=== PATIENT | female | born 1940 | race Caucasian/White ===

== ENCOUNTER → 2017-08-21 | Outpatient (CLI) | payer OTHER ==
[~2017-08-21] MED LIST: ASA81 MG; BYSTOLIC20 MG PO; COUMADIN5 M1 PO; GABAPENTIN300 MG PO; LASIX20 MG PO; LOSARTAN POTAS100 MG PO; NORTRIPTYLINE H25 MG PO; Z.0.BYSTOLIC10 MG; Z.0.LASIX40 MG; Z.0.PRAVACHOL40 MG; Z.1.VERAPAMIL ER240
[2017-08-21 11:51] LABS: INR 1.96
== END ==
LOC: LAB 11:14
PROVIDERS: ATTEND Internal Medicine
DX: Z79.01 Long term (current) use of anticoagulants (principal)
CPT/HCPCS: 36415; 85610

== ENCOUNTER 2017-09-16 14:10 | Observation (INO) | payer MEDICARE ==
[~2017-09-16] VITALS: Ht 170.2 cm; Wt 81.2 kg
[2017-09-16 14:53] LABS: BASOPHILS # (AUTO) 0.1 (0.0-0.1); BASOPHILS % 0.3 % (0.0-1.0); HEMATOCRIT 42.1 % (34.2-44.1); HEMOGLOBIN 13.9 g/dL (12.0-16.0); LYMPHOCYTES # (AUTO) 1.1 (1.0-3.2); LYMPHOCYTES % 5.7 % (18.0-39.1); MEAN CORPUSCULAR HEMOGLOBIN 27.6 pg (28-32); MEAN CORPUSCULAR VOLUME 83.7 fL (81-99); MONOCYTES # (AUTO) 1.4 (0.2-0.8); MONOCYTES % 6.7 % (4.4-11.3); NEUTROPHILS # (AUTO) 17.2 (2.1-6.9); NEUTROPHILS % 85.5 % (38.7-80.0); PLATELET COUNT 192 x10e3/uL (140-360); RED BLOOD COUNT 5.03 x10e6/uL (3.6-5.1); RED CELL DISTRIBUTION WIDTH 15.3 % (11.7-14.4)
[2017-09-16 15:00] LABS: PARTIAL THROMBOPLASTIN TIME 61.5 seconds (23.8-35.5)
[2017-09-16 15:01] LABS: INR 11.19; PROTHROMBIN TIME 81.8 seconds (11.9-14.5)
[2017-09-16 16:15] LABS: ALBUMIN/GLOBULIN RATIO 1.3 (0.8-2.0); ANION GAP 16.2 mmol/L (8-16); CALCIUM 10.1 mg/dL (8.4-10.2); CREATININE, SERUM 1.28 mg/dL (0.57-1.11); POTASSIUM 4.2 mmol/L (3.5-5.1)
[2017-09-16] MEDS ORDERED: PHYTONADIONE 1 MG/0.5 ML AMP IM ONE (16:15)
[2017-09-16] MEDS ORDERED: PHYTONADIONE 10 MG/ML AMP IM SCH (16:45)
[2017-09-16] MEDS ORDERED: ONDANSETRON HCL INJ 2 MG/ML VIAL IV PRN (18:15)
[2017-09-16] MEDS ORDERED: CEFTRIAXONE SOD 1 GM VIAL IM ONE (18:15)
[2017-09-16 18:21] LABS: BILIRUBIN,URINE NEGATIVE (NEGATIVE); CLARITY,URINE CLEAR (CLEAR); COLOR,URINE YELLOW (YELLOW); KETONES,URINE NEGATIVE (NEGATIVE); LEUKOCYTE ESTERASE ,URINE NEGATIVE (NEGATIVE); NITRITE,URINE NEGATIVE (NEGATIVE); PROTEIN,URINE DIPSTICK NEGATIVE (NEGATIVE); URINE UROBILINOGEN 0.2 mg/dL (0.2 - 1)
[2017-09-16 18:35] LABS: EPITHELIAL CELLS,URINE FEW /LPF
[2017-09-16] MEDS ORDERED: CEFTRIAXONE SOD 1 GM VIAL IV ONE (19:55)
--- NOTE | 2017-09-16 19:58 | History and Physical ---
VP ANCILLARY: Dr. Holman. CHIEF COMPLAINT: Elevated INR. HISTORY OF PRESENT ILLNESS: This is a 76-year-old woman with a history of atrial fibrillation on Coumadin whose INR last month was in the 2 range. The patient was sent to the hospital by her primary care physician due to INR being 13. Now, it is in the 11 range. She is ordered for fresh frozen plasma and admitted for further evaluation and management. The patient admits to some dark stool. Denies any radhika bleeding. Denies any history of GI bleeding. The patient denies any recent new medication. Denies any antibiotic use. PAST MEDICAL HISTORY: Pneumonia, atrial fibrillation, hypertension, sepsis, coronary artery disease, status post coronary artery bypass grafting, breast cancer, status post double mastectomy. Hyperlipidemia. Lasix dependence. Status post atrial fibrillation ablation. PAST SURGICAL HISTORY: Coronary artery bypass grafting, hysterectomy, bilateral mastectomy, breast reconstruction, status post removal due to infection, bladder suspension in 1991, left knee meniscus repair. ALLERGIES: PER ELECTRONIC MEDICAL RECORDS. FAMILY AND SOCIAL HISTORY: The patient is . She has 3 children. No alcohol, illicits or cigarettes. MEDICATIONS: Per electronic medical records. REVIEW OF SYSTEMS: Denies any dizziness, chest pain, shortness of breath, fever or chills or sweats, no nausea, vomiting or diarrhea. PHYSICAL EXAMINATION VITAL SIGNS: Reviewed. GENERAL APPEARANCE: A tired-appearing woman resting in the bed. HEENT: Anicteric. Pupils responsive to light. No oral lesions. CARDIOVASCULAR: Normal S1 and S2. LUNGS: Moderate breath sounds, ABDOMEN: Soft and nontender. Nondistended. EXTREMITIES: There is no edema or calf tenderness. NEUROLOGIC: Alert and oriented x3. Moving all extremities. SKIN: Dry. PSYCHIATRIC: Normal affect. LABS: Reviewed. MEDICATIONS: Reviewed. ASSESSMENT : This is a 76-year-old woman. 1. Supratherapeutic INR of 11.19. 2. Coumadin toxicity. 3. Acute kidney injury. 4. Marked leukocytosis. 5. Atrial fibrillation. 6. Coronary artery disease with history of bypass. 7. Hypertension. 8. Hyperlipidemia. 9. Overweight state. BMI 29.4. 10. Hyperglycemia of 285. PLAN: 1. Reverse INR with fresh frozen plasma. 2. Give some vitamin K. 3. Rehydrate the patient. 4. Oral ANDRESSA inhibitor and Lasix. 5. Obtain hemoglobin A1c and lipid panel. 6. Hold Lasix. 7. Use Pepcid. 8. Follow up INR after fresh frozen plasma. 9. Consult cardiology. Job#: [id number] ALIE
[2017-09-16 20:25] VITALS: BP_SYST 160; BP_SYST 166; BP_DIAS 70; BP_DIAS 72
[2017-09-16 21:00] VITALS: BP 144/72
[2017-09-16] MEDS ORDERED: GABAPENTIN 300 MG CAP PO SCH (21:00)
[2017-09-16] MEDS: SODIUM CHLORIDE 0.9% 1000ML 1,000 ML IV SCH (21:55)
[2017-09-16] MEDS ORDERED: PREDNISONE 20 MG TAB PO STA (22:59)
[2017-09-17] VITALS (8 sets, daily range): BP systolic 135–187; BP diastolic 61–81
[2017-09-17] MEDS: SODIUM CHLORIDE 0.9% 1000ML 1,000 ML IV SCH ×2 (04:10→14:30)
[2017-09-17 05:40] LABS: BASOPHILS % 0.2 % (0.0-1.0); EOSINOPHILS # (AUTO) 0.1 (0.0-0.4); EOSINOPHILS % 0.5 % (0.0-6.0); HEMATOCRIT 36.4 % (34.2-44.1); HEMOGLOBIN 11.5 g/dL (12.0-16.0); LYMPHOCYTES # (AUTO) 1.8 (1.0-3.2); LYMPHOCYTES % 11.9 % (18.0-39.1); MEAN CORPUSCULAR HEMOGLOBIN 27.1 pg (28-32); MEAN CORPUSCULAR HGB CONC 31.6 g/dL (31-35); MEAN CORPUSCULAR VOLUME 85.8 fL (81-99); MONOCYTES # (AUTO) 1.3 (0.2-0.8); MONOCYTES % 8.7 % (4.4-11.3); NEUTROPHILS # (AUTO) 11.7 (2.1-6.9); NEUTROPHILS % 76.9 % (38.7-80.0); PLATELET COUNT 164 x10e3/uL (140-360); RED BLOOD COUNT 4.24 x10e6/uL (3.6-5.1); RED CELL DISTRIBUTION WIDTH 15.2 % (11.7-14.4)
[2017-09-17 05:54] LABS: INR 2.19; PROTHROMBIN TIME 22.9 seconds (11.9-14.5)
[2017-09-17 06:03] LABS: ALBUMIN 3.4 g/dL (3.5-5.0); ALBUMIN/GLOBULIN RATIO 1.1 (0.8-2.0); ANION GAP 11.6 mmol/L (8-16); CALCIUM 9.3 mg/dL (8.4-10.2); CREATININE, SERUM 0.99 mg/dL (0.57-1.11); POTASSIUM 4.6 mmol/L (3.5-5.1)
[2017-09-17] MEDS ORDERED: PREDNISONE20 MG PO (06:18)
[2017-09-17 08:53] LABS: CHOL/HDL RATIO 3.4 (3.0-3.6)
[2017-09-17] MEDS ORDERED: FUROSEMIDE 40 MG TAB PO SCH (09:00)
[2017-09-17] MEDS: FAMOTIDINE 20 MG TAB PO SCH ×2 (09:00→17:42)
[2017-09-17] MEDS ORDERED: NEBIVOLOL 10 MG TAB PO SCH (09:00)
[2017-09-17] MEDS ORDERED: KLOR-CON 1010 MEQ PO (09:12)
[2017-09-17] MEDS ORDERED: OMEGA-31000 MG PO (09:12)
[2017-09-17] MEDS ORDERED: PRAMIPEXOLE DIHY1 MG PO (09:12)
[2017-09-17] MEDS ORDERED: CLONIDINE HCL0.1 MG PO (09:12)
[2017-09-17] MEDS ORDERED: B COMPLEX1 EACH PO (09:12)
[2017-09-17] MEDS ORDERED: MULTIVITAMINS1 EAC7 PO (09:12)
[2017-09-17] MEDS ORDERED: HYDRALAZINE HCL25 MG PO (09:12)
[2017-09-17] MEDS ORDERED: NORCO 10-325 T1 EACH PO (09:29)
[2017-09-17] MEDS ORDERED: CLONIDINE HCL 0.1 MG TAB PO SCH (09:30)
[2017-09-17] MEDS: HYDRALAZINE HCL 25 MG TAB PO SCH ×3 (09:57→21:20)
--- NOTE | 2017-09-17 11:05 | Consultation ---
DATE OF CONSULTATION: September 17, 2017 Ms. Kay is a 76-year-old white female referred to me for evaluation of coagulopathy. I had a call from Dr. Gamble that there was a patient who had an INR of 14 and could vitamin K be given at my office. Subsequently, I suggested the patient be sent to the ER as any INR more than 6 could cause spontaneous bleed especially in the brain. Subsequently, the patient was seen in the ER of [facility]. Fresh frozen plasma and vitamin K was given at my instructions to the emergency room physician. Subsequently, consultation was placed for me to see her today. HISTORY OF PAST ILLNESSES: History of atrial fibrillation, history of hypertension, history of coronary artery disease, history of coronary artery bypass, history of bilateral mastectomy for breast cancer. She had reconstruction. However, this got infected. This was taken out. I do not know the medical oncologist who has followed her. History of hyperlipidemia. The patient claims that she has a sore throat for the last 2 days. SURGICAL HISTORY: Coronary artery bypass, bilateral mastectomy, reconstruction and then later removal of the infected implants, history of bladder suspension, history of left knee meniscus repair, history of hysterectomy. SOCIAL HISTORY: Noncontributory. FAMILY HISTORY: Noncontributory. ALLERGIES: REPORTED NONE. MEDICATIONS: At this time: 1. Prednisone 20 mg p.o. t.i.d. 2. Mirapex 1 mg p.o. b.i.d. 3. Ondansetron. 4. [place]. 3. 5. Bystolic. 6. Hydralazine. 7. Lasix. 8. Gabapentin. 9. Pepcid. 10. Clonidine. 11. Ceftriaxone. REVIEW OF SYSTEMS HEENT: Normal except for pharyngitis at this time. CARDIAC: History of coronary artery bypass. History of atrial fibrillation. GI: Normal. : Surgery before. MUSCULOSKELETAL: Normal. SKIN AND BREASTS: Bilateral mastectomy. NEUROENDOCRINE: The patient is hyperglycemic at this time. PHYSICAL EXAMINATION GENERAL: Moderately built female. No palpable adenopathy. HEART: Within normal limits except varying intensity of the 1st heart sound and irregularity. LUNGS: Clear. HEENT: Throat shows pharyngitis. BREASTS: Bilateral mastectomy scars. RECTAL: Vaginal examination deferred. MANAGER ORDER: Essentially normal. EXTREMITIES: Essentially normal. LABS: Shows a hemoglobin of 13.9, hematocrit 42.1, white count of 20,000, and platelets are reported at 192,000. Chemistry shows a sodium of 137, potassium 4.2, chloride 96, CO2 29, BUN 49, creatinine 1.2, glucose high at 285. Calcium 10.1. Bilirubin 1.4, SGOT 21, SGPT 47, alkaline phosphatase 66, total protein 7.2. Albumin 4. Globulin 3.2. Triglycerides high at 300. Coagulation profile reveals the patient's INR to be 11.1. The INR has come down to 2.19 today. Urinalysis is reported essentially normal except for 6-10 rbcs. Chest x-ray is not available at this time for review. IMPRESSION 1. Acquired coagulopathy. 2. Atrial fibrillation. 3. Hypertension. 4. Coronary artery bypass graft. 5. History of breast cancer. 6. Hyperlipidemia. 7. Leukocytosis. 8. Pharyngitis. 9. Hyperglycemia. PLAN, COMMENTS AND SUGGESTIONS: Suggest resuming the Coumadin at a dose of 4 mg a day. Monitor the INR closely. I will be more than happy to get involved in monitoring the INR. It is very essential that the patient should have Coumadin only and not warfarin. I suggest to monitor the INR once a week for 4 weeks, and once stable enough to monitor it once a month. I am at a loss as to why she is on such a high dose of prednisone. However, I will leave it up to the attending. The leukocytosis made even be because of prednisone. Thank you very much for allowing me to participate in the management of this patient. Job#: [id number] RI cc:MD KAMINI WALTON MD
[2017-09-17] MEDS: AMOXICILLIN 250 MG CAP PO SCH ×3 (13:38→21:19)
[2017-09-17] MEDS: NIFEDIPINE CR 30 MG TAB PO SCH ×2 (14:02→21:20)
[2017-09-17] MEDS: CLONIDINE HCL 0.1 MG TAB PO SCH ×2 (14:02→21:20)
--- NOTE | 2017-09-17 14:56 | Progress Note ---
DATE: September 17, 2017 TIME: 2:28 p.m. OVERNIGHT: Feeling better. REVIEW OF SYSTEMS: Denies any dizziness. PHYSICAL EXAMINATION VITAL SIGNS: Reviewed. GENERAL: A tired-appearing woman resting in bed. HEENT: Anicteric. CARDIOVASCULAR: Normal S1 and S2. LUNGS: Moderate breath sounds. ABDOMEN: Soft, nontender and nondistended. EXTREMITIES: No edema or calf tenderness. NEUROLOGICAL: Alert and oriented times 3. Moving all extremities. SKIN: Dry. PSYCHIATRIC: Normal affect. LABS: Reviewed. MEDICATIONS: Reviewed. ASSESSMENT: A 76-year-old woman with: 1. Supratherapeutic INR of 11. 2. Coumadin toxicity. 3. Acute kidney injury. 4. Marked leukocytosis. 5. Atrial fibrillation. 6. Coronary artery disease with a history of bypass. 7. Hypertension. 8. Hyperlipidemia. 9. Overweight state: Body mass index 29.4. 10. Hyperglycemia. 11. Hypertriglyceridemia. PLAN 1. She is status post fresh frozen plasma and vitamin K. INR has been in the 2 range. 2. She will be followed by hematology outpatient, Dr. De La Rosa. 3. Renal function improving. Continue IV fluids and reduced to 75 mL. 4. Blood pressure elevated. Will adjust medications. 5. Will start fenofibrate for hypertriglyceridemia. 6. Discharge planning. Job#: [id number] KANDY
[2017-09-17] MEDS ORDERED: PREDNISONE 20 MG TAB PO SCH (15:00)
[2017-09-17] MEDS: PRAMIPEXOLE DIHYDROCHLORIDE 1 MG TAB PO SCH (17:42)
[2017-09-17] MEDS ORDERED: CHLORASEPTIC SPRAY 177 ML BTL MM PRN (17:45)
[2017-09-17] MEDS ORDERED: NORTRIPTYLINE HCL 25 MG CAP PO SCH (21:00)
[2017-09-17] MEDS: PREDNISONE 5 MG TAB PO SCH (21:19)
[2017-09-18] VITALS: BP_SYST 161; BP_DIAS 70; BP_DIAS 71
[2017-09-18 02:44] VITALS: BP 161/70
[2017-09-18] MEDS: SODIUM CHLORIDE 0.9% 1000ML 1,000 ML IV SCH (03:41)
[2017-09-18 04:00] VITALS: BP 146/67
[2017-09-18 05:30] LABS: BASOPHILS % 0.3 % (0.0-1.0); EOSINOPHILS % 0.2 % (0.0-6.0); HEMATOCRIT 34.2 % (34.2-44.1); HEMOGLOBIN 10.9 g/dL (12.0-16.0); LYMPHOCYTES # (AUTO) 1.4 (1.0-3.2); LYMPHOCYTES % 10.4 % (18.0-39.1); MEAN CORPUSCULAR HEMOGLOBIN 27.7 pg (28-32); MEAN CORPUSCULAR HGB CONC 31.9 g/dL (31-35); MEAN CORPUSCULAR VOLUME 86.8 fL (81-99); MONOCYTES % 7.9 % (4.4-11.3); NEUTROPHILS # (AUTO) 10.3 (2.1-6.9); NEUTROPHILS % 78.6 % (38.7-80.0); PLATELET COUNT 128 x10e3/uL (140-360); RED BLOOD COUNT 3.94 x10e6/uL (3.6-5.1); RED CELL DISTRIBUTION WIDTH 15.1 % (11.7-14.4)
[2017-09-18 05:54] LABS: BLOOD UREA NITROGEN 24 mg/dL (7-26); BUN/CREATININE RATIO 30 (6-25); CALCIUM 8.7 mg/dL (8.4-10.2); CARBON DIOXIDE 24 mmol/L (22-29); CHLORIDE 105 mmol/L (98-107); CREATININE, SERUM 0.81 mg/dL (0.57-1.11); EST GLOMERULAR FILTRATION RATE > 60 ML/MIN (60-); GLUCOSE 341 mg/dL (74-118); SODIUM 138 mmol/L (136-145)
[2017-09-18] MEDS: CLONIDINE HCL 0.1 MG TAB PO SCH (06:24)
[2017-09-18 06:55] LABS: LYMPHOCYTES % (MANUAL) 6 % (19-48); METAMYELOCYTES % (MANUAL) 1 % (0-0); MONOCYTES % (MANUAL) 5 % (3.4-9.0); MYELOCYTES % (MANUAL) 1 % (0-0); NEUTROPHILS % (MANUAL) 86 % (40-74)
[2017-09-18 06:57] LABS: RBC MORPHOLOGY COMMENT NORMAL
[2017-09-18 06:58] LABS: ANISOCYTOSIS SLIGHT; HYPOCHROMASIA SLIGHT; PLATELET ESTIMATE SLIGHTLY DECREASED; PLATELET MORPHOLOGY COMMENT NORMAL
[2017-09-18] MEDS ORDERED: PANTOPRAZOLE SOD 40 MG TABEC PO SCH (07:30)
[2017-09-18] MEDS: FAMOTIDINE 20 MG TAB PO SCH (07:45)
[2017-09-18 08:00] LABS: INR 1.54; PROTHROMBIN TIME 17.4 seconds (11.9-14.5)
--- NOTE | 2017-09-18 08:20 | Discharge Summary ---
PRINCIPAL DIAGNOSES 1. Supratherapeutic INR. 2. Coumadin toxicity. 3. Acute kidney injury. 4. Marked leukocytosis. 5. Atrial fibrillation. 6. Coronary artery disease with history of bypass. 7. Hypertension. 8. Hyperlipidemia. 9. Overweight state. Body mass index 29.4. 10. Hypertriglyceridemia. 11. Hyperglycemia. SECONDARY DIAGNOSIS: Hypertension. CHIEF COMPLAINT: Abnormal labs. HISTORY OF PRESENT ILLNESS: A 76-year-old woman with abnormal labs. Refer to the H and P for further details. HOSPITAL COURSE: The patient was found to have supratherapeutic INR of 11. Received FFP and vitamin K. INR improved to the 2 range. Repeat INR testing now today is pending. The patient is feeling better. She had acute kidney injury. Received IV fluids with improvement in function. She is doing better and currently appropriate for discharge and follow up. DISCHARGE MEDICATIONS: Per electronic medical record. FOLLOWUP: Primary care doctor in 1 week. Follow up with Dr. De La Rosa next week for INR. Continue monitoring. I have adjusted her blood pressure medicines. KAMINI HERNADEZ MD Job#: [id number] [place]
[2017-09-18] MEDS ORDERED: MULTIVITAMINS/MINERALS TAB PO SCH (09:00)
[2017-09-18] MEDS ORDERED: OMEGA 3 POLYUNSAT FATTY ACIDS 1000 MG SOFTGEL PO SCH (09:00)
[2017-09-18] MEDS ORDERED: DEXTROSE 50% SYRINGE 50 ML IV PRN (09:30)
[2017-09-18 09:48] LABS: CHOL/HDL RATIO 3.1 (3.0-3.6)
[2017-09-18] MEDS: PREDNISONE 5 MG TAB PO SCH (10:05)
[2017-09-18] MEDS: PRAMIPEXOLE DIHYDROCHLORIDE 1 MG TAB PO SCH (10:05)
[2017-09-18] MEDS: HYDRALAZINE HCL 25 MG TAB PO SCH (10:07)
[2017-09-18] MEDS: NIFEDIPINE CR 30 MG TAB PO SCH (10:07)
[2017-09-18] MEDS: AMOXICILLIN 250 MG CAP PO SCH ×2 (10:07→13:00)
[2017-09-18] MEDS ORDERED: METFORMIN HCL 500 MG TAB CR PO ONE (10:15)
[2017-09-18] MEDS ORDERED: INSULIN REGULAR, HUMAN 100 UNIT/1 ML 3ML VIAL SQ SCH (11:30)
[2017-09-18] MEDS ORDERED: WARFARIN SODIUM5 MG PO (11:55)
[2017-09-18 12:00] VITALS: BP 141/66
[2017-09-18 12:21] VITALS: BP 137/63
[2017-09-18] MEDS ORDERED: WARFARIN SOD 5 MG TAB PO SCH (17:00)
[2017-09-18] MEDS ORDERED: METFORMIN HCL 500 MG TAB CR PO SCH (17:00)
== END 2017-09-18 12:58 | disposition home or self-care (01) ==
LOC: ER 14:10 → ERHOLD 18:14 → MED/SURG 20:25
PROVIDERS: ADMIT Internal Medicine; ATTEND Internal Medicine
DX: D72.829 Elevated white blood cell count, unspecified (principal); T45.515A Adverse effect of anticoagulants, initial encounter; N17.9 Acute kidney failure, unspecified; I48.91 Unspecified atrial fibrillation; Z79.01 Long term (current) use of anticoagulants; I25.10 Atherosclerotic heart disease of native coronary artery without angina pectoris; Z95.1 Presence of aortocoronary bypass graft; I10 Essential (primary) hypertension; E78.5 Hyperlipidemia, unspecified; E66.3 Overweight; Z68.29 Body mass index [BMI] 29.0-29.9, adult; R73.9 Hyperglycemia, unspecified; Z85.3 Personal history of malignant neoplasm of breast; E78.1 Pure hyperglyceridemia; J02.9 Acute pharyngitis, unspecified
CPT/HCPCS: 36415 ×3; 36430 ×2; 80048; 80053 ×2; 80061 ×2; 81001; 82948; 83036 ×2; 85025 ×3; 85610 ×3; 85730; 86850; 86900; 87040; 87070; 87086; 99284; G0378 ×3; J0696; J3430; J7030 ×3; J7512 ×2; P9017; S0164

== ENCOUNTER 2018-02-05 09:42 | Inpatient (IN) | payer MEDICARE ==
[2018-02-05] VITALS (21 sets, daily range): BP systolic 104–184; BP diastolic 44–93
[~2018-02-05] VITALS: Ht 167.6 cm; Wt 76.0 kg
[~2018-02-05 09:42] MED LIST changes: +B COMPLEX1 EACH PO; +CLONIDINE HCL0.1 MG PO; +HYDRALAZINE HCL25 MG PO; +KLOR-CON 1010 MEQ PO; +MULTIVITAMINS1 EAC7 PO; +NORCO 10-325 T1 EACH PO; +OMEGA-31000 MG PO; +PRAMIPEXOLE DIHY1 MG PO; +PREDNISONE20 MG PO; +WARFARIN SODIUM5 MG PO
--- OUTSIDE RECORDS SUMMARY | 2018-02-05 09:44 | XMS REPORT | Clinical Summary ---
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 Active warfarin (COUMADIN) 5 MG Take 5 mg by 0 tablet mouth daily. Take 1 tablet (5mg) by mouth daily for 30 days. Active metoprolol succinate XL Take 50 mg by 0 (TOPROL-XL) 50 mg 24 hr mouth daily. tablet Active losartan (COZAAR) 100 MG Take 100 mg 0 tablet by mouth daily. Active clonIDINE (CATAPRES) 0.1 Take 0.1 mg 0 MG tablet by mouth 2 (two) times a day. Active OXcarbazepine (TRILEPTAL) Take 150 mg 0 150 MG tablet by mouth every morning. Takes 1 tab morning Active OXcarbazepine (TRILEPTAL) Take 150 mg 0 150 MG tablet by mouth nightly. Takes 2 tabs at bedtime Active Problems Problem Noted Date S/P CABG x 2 08/28/2016 Essential hypertension 08/28/2016 Post-op pain 08/28/2016 Respiratory insufficiency 08/28/2016 Paroxysmal atrial fibrillation 08/28/2016 Coronary artery disease of [place] artery of [place] heart with stable angina 08/27/2016 pectoris Family History Medical History Relation Name Comments Heart disease Father Heart disease Mother Cancer Sister Relation Name Status Comments Father Mother Sister Social History Date Tobacco Use Types Packs/Day Years Used Former Smoker Cigarettes Comments: Quit in 1994 Alcohol Use Drinks/Week oz/Week Comments No Sex Assigned at Date Recorded Not on file Industry Job Start Date Occupation Not on file Not on file Not on file Travel End Travel History Travel Start No recent travel history available. Last Filed Vital Signs Not on file Plan of Treatment Health Maintenance Due Date Last Done Comments SHINGRIX VACCINE (1 of 2) 1988 ZOSTER VACCINE 1998 PNEUMOCOCCAL 10/15/2003 POLYSACCHARIDE VACCINE AGE 65 AND OVER PNEUMOCOCCAL-13 10/15/2003 INFLUENZA VACCINE 10/08/2017 Implants Device Identifier Shelf Expiration Date Model / Serial / Lot Implanted Type Area Manufactur er 06/05/2018 6500F / / [id number] Lead Pace Reji Mycrdl Unipol Tmpry Cardiovasc N/A: N/A [employer] Streamline - [id number] [facility] - Implanted: Qty: 1 on 08/28/2016 by Implants CARDIAC Torsten Nino MD SRGRY 06/05/2018 [id number] / / [id number] Lead Pace Reji Mycrdl Unipol Tmpry Cardiovasc N/A: N/A [employer] Streamline - [id number] [facility] - Implanted: Qty: 1 on 08/28/2016 by Implants CARDIAC Torsten Nino MD SRGRY [id number] / / Catheter Thor [place] 36fr 20in Str Surgical N/A: N/A COVIDIEN Pvc - [id number] Implants; LAINE Implanted: 08/28/2016 (Quantity not Expanders; HEALTHCARE on file) Extenders; Surgical Wires [id number] / / Patch Biosurg Selnt Fibrin Absrbl Surgical N/A: N/A BAILEY 9.5x4.8cm Tachosil - [id number] Implants; BIOSCIENCE Implanted: 08/28/2016 (Quantity not Expanders; on file) Extenders; Surgical Wires 03/06/2021 [id number] / / [id number] [place] Perph Vasclr Ptfe 1.2x10cm Vascular N/A: N/A BARD 1.65mm - [id number] Graft PERIPHERAL Implanted: Qty: 1 on 08/28/2016 by VASCULAR Torsten Nino MD Results Not on fileafter 02/04/2017 Insurance Payer Benefit Subscriber ID Type Phone Address Plan / Group AETNA MEDICARE AETNA xxxxxxxx HMO MEDICARE HMO/PPO [facility] Advance Directives Patient has advance care planning documents on file. For more information, radha bates contact: Zion Jiménez [address] [place] [address]
[2018-02-05] MEDS ORDERED: PIPER-TAZ 3.375 GM 50 ML IV STA (09:59)
[2018-02-05] MEDS ORDERED: SODIUM CHLORIDE 0.9% 1000ML 1,000 ML IV STA (09:59)
[2018-02-05] MEDS ORDERED: VANCOMYCIN 1GM/NS 250 ML 250 ML IV STA (09:59)
[2018-02-05 10:17] LABS: BASOPHILS # (AUTO) 0.1 (0.0-0.1); BASOPHILS % 0.3 % (0.0-1.0); HEMATOCRIT 32.2 % (34.2-44.1); LYMPHOCYTES # (AUTO) 0.7 (1.0-3.2); LYMPHOCYTES % 4.5 % (18.0-39.1); MEAN CORPUSCULAR HEMOGLOBIN 26.1 pg (28-32); MEAN CORPUSCULAR HGB CONC 31.1 g/dL (31-35); MEAN CORPUSCULAR VOLUME 84.1 fL (81-99); MONOCYTES # (AUTO) 1.5 (0.2-0.8); MONOCYTES % 10.2 % (4.4-11.3); NEUTROPHILS # (AUTO) 12.2 (2.1-6.9); NEUTROPHILS % 84.4 % (38.7-80.0); PLATELET COUNT 165 x10e3/uL (140-360); RED BLOOD COUNT 3.83 x10e6/uL (3.6-5.1); RED CELL DISTRIBUTION WIDTH 14.6 % (11.7-14.4)
[2018-02-05 10:41] LABS: ALBUMIN 3.3 g/dL (3.5-5.0); ALBUMIN/GLOBULIN RATIO 0.8 (0.8-2.0); ANION GAP 14.2 mmol/L (8-16); CALCIUM 10.2 mg/dL (8.4-10.2); CREATININE, SERUM 1.53 mg/dL (0.57-1.11); POTASSIUM 4.2 mmol/L (3.5-5.1)
[2018-02-05 10:51] LABS: CREATINE KINASE MB 1.6 ng/mL (0-5.0)
[2018-02-05] MEDS ORDERED: AZITHROMYCIN 500MG/SOD CHL 0.9% 250ML BAG IV SCH (11:45)
[2018-02-05] MEDS ORDERED: VANCOMYCIN HCL 1GM/NS 250 ML BAG IV SCH (11:45)
--- NOTE | 2018-02-05 11:59 | Diagnostic Imaging Report ---
PROCEDURE: A single AP view of the chest. COMPARISON: CT Chest 12/10/2016 and chest radiograph 11/14/16. INDICATIONS: CHEST PAIN, CONFUSION FINDINGS: Lines/tubes: Left sided pacemaker with leads terminating at the expected position of the right atrium and right ventricle. Lungs: The lungs are well inflated. Moderate interstitial and perihilar opacities. Patchy opacities at the lung bases. Pleura: Small bilateral pleural effusions. No evidence of pneumothorax. Heart and mediastinum: Mild enlargement of the cardiomediastinal silhouette. Bones: No acute bony abnormality. IMPRESSION: Cardiomegaly with moderate interstitial edema and small bilateral pleural effusions. Patchy opacities at the lung bases likely atelectasis, although superimposed pneumonia is possible in the appropriate clinical setting. Dictated by: DOM TEJADA M.D. on 02/05/2018 at 12:08 Electronically approved by: DOM TEJADA M.D. on 02/05/2018 at 12:08
--- OUTSIDE RECORDS SUMMARY | 2018-02-05 12:03 | XMS REPORT | Clinical Summary ---
Author Author [facility] [employer] [facility] Address Unknown Phone Unavailable Care Team Providers Care Adhesive Bonding Machine Operator Name Role Phone Hawa Gamble MD PCP [...] atrial fibrillation 08/28/2016 Coronary artery disease of [place] artery of [place] heart with stable angina 08/27/2016 pectoris Family [...] Area Manufactur er 06/05/2018 6500F / / [id number] Lead Pace Reji Mycrdl Unipol Tmpry Cardiovasc N/A: N/A [employer] Streamline - [id number] [facility] - Implanted: Qty: 1 on 08/28/2016 by Implants CARDIAC Torsten Nino MD SRGRY 06/05/2018 [id number] / / [id number] Lead Pace Reji Mycrdl Unipol Tmpry Cardiovasc N/A: N/A [employer] Streamline - [id number] [facility] - Implanted: Qty: 1 on 08/28/2016 by Implants CARDIAC Torsten Nino MD SRGRY [id number] / / Catheter Thor [place] 36fr 20in Str Surgical N/A: N/A COVIDIEN Pvc - [id number] Implants; LAINE Implanted: 08/28/2016 (Quantity not Expanders; HEALTHCARE on file) Extenders; Surgical Wires [id number] / / Patch Biosurg Selnt Fibrin Absrbl Surgical N/A: N/A BAILEY 9.5x4.8cm Tachosil - [id number] Implants; BIOSCIENCE Implanted: 08/28/2016 (Quantity not Expanders; on file) Extenders; Surgical Wires 03/06/2021 [id number] / / [id number] [place] Perph Vasclr Ptfe 1.2x10cm Vascular N/A: N/A BARD 1.65mm - [id number] Graft PERIPHERAL Implanted: Qty: 1 on 08/28/2016 by VASCULAR Torsten Nino MD Results Not on fileafter 02/04/2017 Insurance Payer Benefit Subscriber ID Type Phone Address Plan / Group AETNA MEDICARE AETNA xxxxxxxx HMO MEDICARE HMO/PPO [facility] Advance Directives Patient has advance care planning documents on file. For more information, radha bates contact: Zion Jiménez [address] [place] [address]
[2018-02-05 12:17] LABS: INR 1.34; PROTHROMBIN TIME 17.7 seconds (11.9-14.5)
[2018-02-05] MEDS: VANCOMYCIN 1GM/NS 250 ML 250 ML IV SCH (12:21)
[2018-02-05 12:28] LABS: BILIRUBIN,URINE NEGATIVE (NEGATIVE); CLARITY,URINE SL CLOUDY (CLEAR); COLOR,URINE YELLOW (YELLOW); KETONES,URINE NEGATIVE (NEGATIVE); LEUKOCYTE ESTERASE ,URINE 1+ (NEGATIVE); NITRITE,URINE NEGATIVE (NEGATIVE); PROTEIN,URINE DIPSTICK 1+ (NEGATIVE); URINE UROBILINOGEN 0.2 mg/dL (0.2 - 1)
[2018-02-05 12:38] LABS: BACTERIA,URINE MANY /HPF; EPITHELIAL CELLS,URINE FEW /LPF
[2018-02-05] MEDS ORDERED: FUROSEMIDE INJ 10 MG/ML 4 ML VIAL IV NR (13:15)
[2018-02-05] MEDS: LEVOFLOXACIN 750MG/D5W 150ML 150 ML IV SCH (14:59)
[2018-02-05] MEDS: AZITHROMYCIN 500MG/NS 250 ML 250 ML IV SCH (14:59)
--- NOTE | 2018-02-05 15:07 | Consultation ---
DATE OF CONSULTATION: February 05, 2018 CARDIAC CONSULTATION REASON FOR THE CONSULTATION: Acutely ill with possible near septic shock, coronary artery disease, congestive heart failure. HISTORY: Ms. Kay is a 77-year-old lady who is known with chronic atrial fibrillation, status post AV node ablation, pacemaker placement. Her other problems including coronary artery disease, status post coronary artery bypass surgery in August 2016 for left main coronary artery disease. She is hypertensive. Patient was in her usual status of health. Unfortunately more than 6 months ago she started having very severe lower extremity pain. She had workup. She was diagnosed with severe peripheral neuropathy. She was started on steroids. She had complications. She can barely move, and she needs long rehabilitation. She is in chronic pain. She does have other problem, is chronic severe shortness of breath. She was seen and evaluated by Dr. Freire. She had workup, and she did not improve much from that front but what is bothering her the most is her severe lower extremity pain, her limited activity, and patient is very ill. Patient for the last 2 days as per having fever, chills, very weak. She cannot do anything. Today she was shocky. She was very ill. He needed to call 9--1. She came in the ambulance to the hospital. She was shocky. She was rescued with IV fluid, she had blood cultures, and she was given antibiotics. Cardiac consultation is obtained. I visited with the patient. She is more awake. She was before that having altered mental status. She is complaining of severe pain of the lower extremities. She denied having any shortness of breath, although initially we were thinking she was having severe shortness of breath. She denied having any anginal chest pain. Her main problem is her pain in her lower extremities and fever, chills, failure to thrive and weakness. Her BNP came back positive at 518; her troponin at 0.42, upper normal at this institution is 0.3. HOME MEDICATIONS 1. Clonidine 0.1 mg twice a day. 2. Losartan 100 mg a day. 3. Lasix 40 mg a day. 4. Potassium chloride 20 mEq a day. 5. Hydralazine 50 mg 3 times a day. 6. Mexiletine 150 mg a day. 7. Metformin 500 mg 3 times a day. 8. Pramipexole dihydrochloride 1 mg twice a day. 9. Baclofen 10 mg t.i.d. ALLERGIES: NORVASC, CAUSING LEG SWELLING. TOPROL-XL, CAUSING WEAKNESS. MOTRIN, CAUSING RASH. PAST MEDICAL HISTORY 1. Coronary artery bypass surgery on August 28, 2016, for 2 bypasses, GONZÁLES to LAD and saphenous venous graft to the OM. 2. Pacemaker placement. 3. Atrial fibrillation. 4. AV kala ablation in April 2003. 5. Severe pneumonia in 2013. 6. Severe peripheral neuropathy treated with steroids with severe sequela. Patient barely can walk now. 7. Breast reconstruction surgery after bilateral mastectomy with removal of the implant because of infection. 8. Oophorectomy with bladder suspension in 1992. 9. Hysterectomy. 10. Back surgery. SOCIAL HISTORY: She is . 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 She is nonsmoker, nonalcohol drinker. FAMILY HISTORY: Mother of myocardial infarction at the age 46, and she had also breast cancer. Father at the age 86. He had bypass and carotid endarterectomy. Five siblings and three children. One sister of breast cancer and another sister diagnosed with breast cancer. REVIEW OF SYSTEMS GENERAL: Weakness. Failure to thrive. Poor exercise tolerance. HEENT: No vision problem. No hearing problem. PULMONARY: Easy fatigability. Shortness of breath on exertion, class III. CARDIAC: No angina, no syncope, no presyncope. GI: Poor appetite. Weakness. No hematemesis, no melena. HEMATOLOGY: No easy bruising or bleeding, but patient had recent admission where she had Coumadin toxicity. : Increased frequency of urination. MUSCULOSKELETAL: Back pain. NEUROLOGICAL: Very severe excruciating lower extremity pain, very weak and restless legs. PHYSICAL EXAMINATION VITAL SIGNS: Height of 5 feet 7 inches, weight of 175 pounds, blood pressure 140/80, heart rate 70, respiratory rate of 18. GENERAL: Patient acutely ill. HEENT: Pupils are reactive. NECK: No elevation of jugular venous pulsation. CHEST: Decreased lung expansion. Pacemaker is noted in place. HEART: PMI 5th left intercostal space. Normal 1st and 2nd heart sounds. Soft murmur. ABDOMEN: Soft with no organomegaly, no abdominal rebound. Bowel sounds are present. EXTREMITIES: Chronic changes, very painful to touch. NEUROLOGIC: Very severe weakness of the lower extremities. LAB DATA: White blood cell count of 14.4, hemoglobin of 10, hematocrit 32%, platelet count of 165,000. Sodium of 132, potassium of 4.2, BUN of 31, creatinine of 1.53. Troponin of 0.420. BNP of 518. INR still pending. IMPRESSION AND PLAN 1. Failure to thrive with febrile illness. Sepsis is very high on the list. Patient already given IV fluid, and she is covered with antibiotics. 2. Status post bypass surgery. 3. Chronic lung disease. 4. Severe peripheral neuropathy with severe pain and lower extremity weakness. 5. Hypertension. 6. Atrial fibrillation and pacemaker implantation. 7. Debility and chronic pain. 8. Pacemaker. Cardiac-cruz, recommendation will be to aggressively treat the patient, checking her INR, repeating lab, checking an echo, checking her pacemaker, repeating serial cardiac enzymes. Prognosis is guarded at this timepoint, but will follow this very ill patient with you and would like to thank you for your kind referral. Job#: [id number] LAISHA
[2018-02-05 16:18] LABS: ABG HCO3 21 mmol/L (23-28); ABG PCO2 31 mmHg (41-51); ABG PH 7.45 (7.31-7.41); ABG PO2 56 mmHg (80-105)
[2018-02-05] MEDS: METOPROLOL TARTRATE 25 MG TAB PO SCH (17:00)
[2018-02-05] MEDS ORDERED: POTASSIUM CHLO20 ME1 PO (18:13)
[2018-02-05] MEDS ORDERED: METFORMIN HCL500 MG PO (18:13)
[2018-02-05] MEDS ORDERED: METOLAZONE5 MG PO (18:13)
[2018-02-05] MEDS ORDERED: BACLOFEN10 MG PO (18:13)
[2018-02-05] MEDS ORDERED: MEXILETINE HCL150 MG PO (18:13)
[2018-02-05] MEDS ORDERED: FUROSEMIDE40 MG PO (18:13)
[2018-02-05] MEDS ORDERED: DICLOFENAC TOP (18:13)
[2018-02-05] MEDS ORDERED: HYDROCODONE/APAP 10MG-325MG TAB PO ONE (19:15)
[2018-02-05] MEDS: HYDROCODONE/APAP 10MG-325MG TAB PO PRN (20:30)
[2018-02-05] MEDS ORDERED: CRESTOR 10MG PO SCH (21:00)
[2018-02-06] VITALS (16 sets, daily range): BP systolic 11–155; BP diastolic 49–80
[2018-02-06] MEDS: HYDROCODONE/APAP 10MG-325MG TAB PO PRN (01:34)
[2018-02-06 01:36] LABS: CLARITY,URINE SL CLOUDY (CLEAR); COLOR,URINE YELLOW (YELLOW); LEUKOCYTE ESTERASE ,URINE 1+ (NEGATIVE)
[2018-02-06 01:37] LABS: BACTERIA,URINE FEW /HPF; BILIRUBIN,URINE NEGATIVE (NEGATIVE); EPITHELIAL CELLS,URINE FEW /LPF; KETONES,URINE NEGATIVE (NEGATIVE); NITRITE,URINE NEGATIVE (NEGATIVE); PROTEIN,URINE DIPSTICK 1+ (NEGATIVE); URINE UROBILINOGEN 0.2 mg/dL (0.2 - 1); WBC,URINE (MAN) 21-50 /HPF (0-5)
[2018-02-06 05:04] LABS: BASOPHILS % 0.4 % (0.0-1.0); EOSINOPHILS % 0.1 % (0.0-6.0); HEMATOCRIT 28.7 % (34.2-44.1); HEMOGLOBIN 9.2 g/dL (12.0-16.0); LYMPHOCYTES # (AUTO) 1.4 (1.0-3.2); LYMPHOCYTES % 14.2 % (18.0-39.1); MEAN CORPUSCULAR HGB CONC 32.1 g/dL (31-35); MEAN CORPUSCULAR VOLUME 84.2 fL (81-99); MONOCYTES # (AUTO) 1.3 (0.2-0.8); MONOCYTES % 13.5 % (4.4-11.3); NEUTROPHILS % 71.3 % (38.7-80.0); PLATELET COUNT 150 x10e3/uL (140-360); RED BLOOD COUNT 3.41 x10e6/uL (3.6-5.1); RED CELL DISTRIBUTION WIDTH 14.3 % (11.7-14.4)
[2018-02-06 05:31] LABS: ALBUMIN 2.7 g/dL (3.5-5.0); ALBUMIN/GLOBULIN RATIO 0.7 (0.8-2.0); ANION GAP 12.7 mmol/L (8-16); CALCIUM 9.5 mg/dL (8.4-10.2); CHOL/HDL RATIO 3.3 (3.0-3.6); CREATININE, SERUM 1.26 mg/dL (0.57-1.11); POTASSIUM 3.7 mmol/L (3.5-5.1)
--- NOTE | 2018-02-06 05:41 | History and Physical ---
REASONS FOR ADMISSION 1. Sepsis. 2. Pneumonia. HISTORY OF PRESENT ILLNESS: Patient is a 77-year-old lady, who was in her usual state of health until 2 days before admission, when she started having significant fevers up to 103, myalgias, where she presented to the emergency room, where she appeared to be in sepsis secondary to pneumonia, so she has been admitted for further evaluation and treatment and she currently hardly feels better with IV fluids and antibiotics. PAST MEDICAL HISTORY: Chronic kidney disease stage 3, hypertension, CHF, coronary artery disease. MEDICATIONS: See MAR. ALLERGIES: NONE. SOCIAL HISTORY: Nonsmoker, nondrinker. Lives at home. FAMILY HISTORY: Noncontributory. PHYSICAL EXAMINATION VITALS: Temperature 98.3, pulse 69, blood pressure 127/60, sats 100%. GENERAL: In no apparent distress . NECK: Supple. No lymphadenopathy. CARDIOVASCULAR: Regular rate and rhythm. LUNGS: Clear to auscultation bilaterally. ABDOMEN: Good bowel sounds. Soft, nontender. EXTREMITIES: No clubbing, cyanosis or edema. NEUROLOGICAL: Nonfocal. ASSESSMENT AND PLAN 1. Sepsis secondary to pneumonnia. Continue with antibiotics. 2. Chronic kidney disease, stage 3. Continue with IV fluids. 3. Hypertension. Continue with current care. 4. Coronary artery disease. Continue with current medications. Dr. Holman, treasury consultant, already seeing her. 5. Leukocytosis. Continue to monitor. 6. Anemia. Continue to monitor. Please see hospital chart for full details. Job#: [id number] CQ
[2018-02-06 05:59] LABS: THYROID STIMULATING HORMONE 1.097 uIU/mL (0.350-4.940)
[2018-02-06] MEDS: METOPROLOL TARTRATE 25 MG TAB PO SCH ×2 (08:29→16:33)
[2018-02-06] MEDS: VANCOMYCIN 1GM/NS 250 ML 250 ML IV SCH (08:33)
[2018-02-06] MEDS ORDERED: CLOPIDOGREL BISULFATE 75 MG TAB PO SCH (09:00)
[2018-02-06] MEDS ORDERED: LEVOFLOXACIN 750MG/DEXTROSE PREMIX BAG 150ML IV SCH (09:00)
[2018-02-06] MEDS: ONDANSETRON HCL INJ 2 MG/ML VIAL IV PRN ×2 (09:50→20:05)
[2018-02-06] MEDS: AZITHROMYCIN 500MG/NS 250 ML 250 ML IV SCH (10:10)
[2018-02-06] MEDS ORDERED: ACETAMINOPHEN 325 MG TAB PO PRN (11:45)
[2018-02-06] MEDS: LEVOFLOXACIN 750MG/D5W 150ML 150 ML IV SCH (11:55)
[2018-02-06] MEDS: SODIUM CHLORIDE 0.9% 1000ML 1,000 ML IV SCH (11:55)
[2018-02-06] MEDS: ENOXAPARIN INJ 80 MG/0.8 ML SYR SC SCH ×2 (11:55→21:14)
[2018-02-06] MEDS ORDERED: IOPAMIDOL 370 MG/ML 200 ML INFUS..BTL INJ ONE ×2 (14:01→22:17)
[2018-02-06] MEDS ORDERED: SODIUM CHLORIDE 0.9% 50ML 50 ML ONE (14:01)
--- NOTE | 2018-02-06 15:09 | Diagnostic Imaging Report ---
EXAMINATION: CT of the chest with contrast, PE protocol. TECHNIQUE: Spiral CT images of the chest were performed from the lung apices through the level of the adrenal glands after the IV administration of 100 cc of Isovue-370. Thin section reconstructions were obtained with special concentration on the pulmonary arteries. COMPARISON: CT chest without contrast 12/10/2016 CLINICAL HISTORY:Shortness of breath, concern for pulmonary embolus DISCUSSION: Left subclavian approach implantable cardiac device body lies in the soft tissues of the left chest wall. Leads terminate in the right atrium and right ventricle. Vasculature: The main pulmonary artery, right and left pulmonary arteries, and their visualized lobar and segmental branches are patent, without filling defect. Pulmonary outflow tract is of normal caliber. There is no ectasia or aneurysmal dilatation of the thoracic aorta. Lungs: Perihilar predominant groundglass opacities and interlobular septal thickening. 1.3 cm cavitary nodule with direct bronchial communication in the superior segment of the left lower lobe seen on series 3 image 50. Associated peribronchovascular nodules most notably in the right upper lobe. Airways: Trachea, mainstem bronchi, and central lobar and segmental bronchi are patent. Pleura: Small right and trace left pleural effusion. No pneumothorax. Heart and mediastinum: Cardiomegaly with prominent epicardial fat. No right ventricular dilatation or septal bowing. No pericardial effusion. Postsurgical changes of coronary artery bypass with multiple median sternotomy wires. Visualized portions of the thyroid gland are unremarkable. Great vessel origins are normal in caliber and configuration. Mediastinal and hilar lymph nodes are increased in number though not enlarged by CT criteria and overall unchanged relative to December 27, 2016. Abdomen: Probable subcapsular vascular shunt in hepatic segment 8. Subcentimeter hypoattenuating lesion in segment 7 is too small to further characterize but unchanged relative to 12/10/2016. Visualized portions of the spleen are unremarkable. Bones and soft tissues: Asymmetry of the pectoralis musculature is unchanged compared to 12/10/2016. Otherwise no focal soft tissue abnormalities. No osseous destructive lesions. IMPRESSION: No pulmonary embolus to the level of the segmental branch pulmonary arteries. Central predominant groundglass opacities and smooth interlobular septal thickening likely reflects pulmonary edema in the setting of associated small right and trace left pleural effusions, though the differential diagnosis includes atypical infection. Small cavitary nodule in the superior segment of the left lower lobe is likely the result of endobronchial infection, given apparent communication with a subsegmental bronchus. Follow-up CT scan of the chest in 3 months is suggested to document stability or resolution. Cardiomegaly with postsurgical changes of the mediastinum as above. Signed by: Dr. Cuco Joiner M.D. on 02/06/2018 3:05 PM
[2018-02-06] MEDS: WARFARIN SOD 5 MG TAB PO SCH (16:33)
[2018-02-06] MEDS ORDERED: SODIUM CHLORIDE 0.9% 100 ML 100 ML ONE (22:17)
[2018-02-07] VITALS (9 sets, daily range): BP systolic 136–173; BP diastolic 62–97
[2018-02-07] MEDS: SODIUM CHLORIDE 0.9% 1000ML 1,000 ML IV SCH ×2 (00:23→09:55)
[2018-02-07] MEDS: ONDANSETRON HCL INJ 2 MG/ML VIAL IV PRN ×3 (00:28→21:43)
[2018-02-07 06:15] LABS: BASOPHILS % 0.4 % (0.0-1.0); HEMATOCRIT 31.8 % (34.2-44.1); HEMOGLOBIN 9.8 g/dL (12.0-16.0); LYMPHOCYTES # (AUTO) 1.8 (1.0-3.2); LYMPHOCYTES % 15.6 % (18.0-39.1); MEAN CORPUSCULAR HEMOGLOBIN 26.1 pg (28-32); MEAN CORPUSCULAR HGB CONC 30.8 g/dL (31-35); MEAN CORPUSCULAR VOLUME 84.6 fL (81-99); MONOCYTES # (AUTO) 1.5 (0.2-0.8); MONOCYTES % 13.6 % (4.4-11.3); NEUTROPHILS # (AUTO) 7.9 (2.1-6.9); NEUTROPHILS % 69.7 % (38.7-80.0); PLATELET COUNT 180 x10e3/uL (140-360); RED BLOOD COUNT 3.76 x10e6/uL (3.6-5.1); RED CELL DISTRIBUTION WIDTH 14.3 % (11.7-14.4)
[2018-02-07 06:36] LABS: ALBUMIN 2.9 g/dL (3.5-5.0); ALBUMIN/GLOBULIN RATIO 0.7 (0.8-2.0); CALCIUM 9.5 mg/dL (8.4-10.2)
[2018-02-07 07:22] LABS: CREATININE, SERUM 1.23 mg/dL (0.57-1.11)
[2018-02-07 07:38] LABS: LYMPHOCYTES % (MANUAL) 34 % (19-48); MONOCYTES % (MANUAL) 6 % (3.4-9.0); NEUTROPHILS % (MANUAL) 60 % (40-74); PLATELET ESTIMATE ADEQUATE; RBC MORPHOLOGY COMMENT NORMAL
[2018-02-07 07:39] LABS: PLATELET MORPHOLOGY COMMENT FEW EDTA CLUMPING
[2018-02-07] MEDS: AZITHROMYCIN 500MG/NS 250 ML 250 ML IV SCH (09:56)
--- NOTE | 2018-02-07 09:56 | Progress Note ---
DATE: SUBJECTIVE: Patient is admitted for sepsis. Patient is doing well except for aching all over the body. She has not gotten up. Possible constipation and possible some shortness of breath too. Patient is on azithromycin, Levaquin, and vancomycin daily. Patient is also on DVT prophylaxis 70 mg a day and warfarin 5 mg. INR is 1.34. OBJECTIVE VITAL SIGNS: Temperature is 96.2, pulse is 78, blood pressure is 166/97, and SpO2 is 94%, and respirations of 18. GENERAL: She is alert and oriented x3, in no acute distress complaining of some shortness of breath and some generalized body aches. HEENT: Normocephalic and atraumatic. LUNGS: Clear to auscultation bilaterally. CVA: S1 and S2 normal. ABDOMEN: Soft and nontender. NEUROLOGIC: No focal deficits, but extremely weak and tired. LABS: From yesterday BUN was 32, creatinine of 1.26. Today's hemoglobin is 9.8 and white count of 11.2. INR is 1.34. ASSESSMENT AND PLAN 1. Sepsis. Continue with IV fluids. Currently on antibiotics. We will continue monitoring her labs and also her creatinine. 2. Status post bypass coronary artery disease and also history of pacemaker placement. 3. Hypertension. 4. Extreme debility and chronic pain. 5. Anticoagulation. We will continue monitor the patient along with consultants. Antibiotics on-board. Medications reviewed and patient will have an SCD placed. Patient is reluctant about physical therapy today. We will appropriately stop that on Friday. Job#: [id number] JOHNATHON
[2018-02-07] MEDS: ENOXAPARIN INJ 80 MG/0.8 ML SYR SC SCH (10:01)
[2018-02-07] MEDS: METOPROLOL TARTRATE 25 MG TAB PO SCH ×2 (10:01→18:27)
[2018-02-07] MEDS: VANCOMYCIN 1GM/NS 250 ML 250 ML IV SCH (11:04)
[2018-02-07] MEDS ORDERED: FUROSEMIDE INJ 10 MG/ML 4 ML VIAL IV NR (12:00)
[2018-02-07] MEDS ORDERED: PROMETHAZINE HCL 25 MG TAB PO PRN ×2 (12:00→12:30)
[2018-02-07] MEDS: PRAMIPEXOLE DIHYDROCHLORIDE 1 MG TAB PO SCH ×2 (12:38→18:27)
[2018-02-07] MEDS: LEVOFLOXACIN 750MG/D5W 150ML 150 ML IV SCH (12:38)
[2018-02-07] MEDS: HYDRALAZINE HCL 25 MG TAB PO SCH ×2 (15:34→22:40)
[2018-02-07 17:42] LABS: INR 2.01; PROTHROMBIN TIME 24.3 seconds (11.9-14.5)
[2018-02-07] MEDS: WARFARIN SOD 5 MG TAB PO SCH (18:27)
[2018-02-07] MEDS: HYDROCODONE/APAP 10MG-325MG TAB PO PRN (18:27)
[2018-02-07] MEDS: NORTRIPTYLINE HCL 25 MG CAP PO SCH (22:40)
[2018-02-07] MEDS: TEMAZEPAM 15 MG CAP PO PRN (22:40)
[2018-02-08] VITALS (8 sets, daily range): BP systolic 117–177; BP diastolic 57–82
[2018-02-08] MEDS: SODIUM CHLORIDE 0.9% 1000ML 1,000 ML IV SCH ×2 (00:50→16:00)
[2018-02-08 06:01] LABS: BASOPHILS % 0.3 % (0.0-1.0); EOSINOPHILS % 0.1 % (0.0-6.0); HEMATOCRIT 29.7 % (34.2-44.1); HEMOGLOBIN 9.2 g/dL (12.0-16.0); LYMPHOCYTES # (AUTO) 1.8 (1.0-3.2); LYMPHOCYTES % 14.2 % (18.0-39.1); MEAN CORPUSCULAR HEMOGLOBIN 26.1 pg (28-32); MEAN CORPUSCULAR VOLUME 84.4 fL (81-99); MONOCYTES # (AUTO) 1.7 (0.2-0.8); NEUTROPHILS # (AUTO) 9.1 (2.1-6.9); NEUTROPHILS % 71.5 % (38.7-80.0); PLATELET COUNT 154 x10e3/uL (140-360); RED BLOOD COUNT 3.52 x10e6/uL (3.6-5.1); RED CELL DISTRIBUTION WIDTH 14.4 % (11.7-14.4)
[2018-02-08 06:44] LABS: ALBUMIN 2.8 g/dL (3.5-5.0); ALBUMIN/GLOBULIN RATIO 0.8 (0.8-2.0); ANION GAP 14.6 mmol/L (8-16); CREATININE, SERUM 1.2 mg/dL (0.57-1.11); POTASSIUM 3.6 mmol/L (3.5-5.1)
[2018-02-08 07:19] LABS: INR 2.09; PROTHROMBIN TIME 25.1 seconds (11.9-14.5)
--- NOTE | 2018-02-08 07:48 | Progress Note ---
DATE: NO DICTATION (00:04) Job#: [id number] EVELYNE
--- NOTE | 2018-02-08 07:53 | Progress Note ---
DATE: SUBJECTIVE: Patient is alert and oriented x3, slept and rested well yesterday. No complaints. Patient is feeling fatigued. OBJECTIVE VITAL SIGNS: Temperature is 96.6, pulse of 83, blood pressure is 159/70, respirations of 21, and SpO2 is 97%. GENERAL: Patient is alert and oriented x3. LUNGS: Clear to auscultation bilaterally. CARDIOVASCULAR: Normal. ABDOMEN: Soft, nontender, and nondistended. Slight amount of tenderness in the right upper quadrant. EXTREMITIES: No clubbing. No cyanosis. No edema. Positive for trophic changes. NEUROLOGIC: Positive for sensory deficits on the lower extremities. LABORATORY DATA: Today's white count is 12.69, hemoglobin of 9.2, and hematocrit of 29.7. There still is a left shift with 9.1. Chemistries show a sodium of 140, potassium of 3.6, and creatinine was 1.2 at baseline. Patient's total bilirubin went up to 1.8. AST of , ALT 95. On other labs, creatinine was 1.23. ASSESSMENT AND PLAN 1. Sepsis: We will continue with IV fluid. 2. Status post bypass coronary artery disease and history of pacemaker placement: We will continue on her cardiovascular medications. 3. Elevated liver enzymes: We will go ahead and do a CMV, also do a hepatitis panel and ultrasound of the liver. 4. Debility and chronic pain: We will continue monitoring with pain medications. We will try to hold off [place] as much as we can for pain and continue with hydration. We will check her labs again tomorrow and follow up with the CMV and hepatitis panel. Further recommendations based on the clinical course. We will continue to monitor the patient. Patient also has a history of anemia and chronic kidney disease. Job#: [id number] EVELYNE
[2018-02-08] MEDS: VITAMIN B-COMPLEX PO SCH (09:00)
[2018-02-08] MEDS: METOPROLOL TARTRATE 25 MG TAB PO SCH ×2 (09:08→16:31)
[2018-02-08] MEDS: LOSARTAN POTASSIUM 100 MG TAB PO SCH (09:08)
[2018-02-08] MEDS: ONDANSETRON HCL INJ 2 MG/ML VIAL IV PRN (09:08)
[2018-02-08] MEDS: HYDRALAZINE HCL 25 MG TAB PO SCH ×3 (09:08→21:33)
[2018-02-08] MEDS: AZITHROMYCIN 500MG/NS 250 ML 250 ML IV SCH (09:08)
[2018-02-08] MEDS: PRAMIPEXOLE DIHYDROCHLORIDE 1 MG TAB PO SCH ×2 (09:09→16:31)
[2018-02-08] MEDS: MULTIVITAMINS/MINERALS TAB PO SCH (09:09)
[2018-02-08] MEDS: OMEGA 3 POLYUNSAT FATTY ACIDS 1000 MG SOFTGEL PO SCH (09:09)
[2018-02-08 09:47] LABS: INR 2.11; PROTHROMBIN TIME 25.3 seconds (11.9-14.5)
[2018-02-08] MEDS: VANCOMYCIN 1GM/NS 250 ML 250 ML IV SCH (10:35)
[2018-02-08] MEDS: HYDROCODONE/APAP 10MG-325MG TAB PO PRN (10:44)
[2018-02-08] MEDS: LEVOFLOXACIN 750MG/D5W 150ML 150 ML IV SCH (12:11)
[2018-02-08] MEDS ORDERED: FUROSEMIDE INJ 10 MG/ML 4 ML VIAL IV NR (13:00)
[2018-02-08] MEDS ORDERED: POTASSIUM CHLORIDE 20 MEQ TAB CR PO NR (13:00)
[2018-02-08 13:28] LABS: EOSINOPHILS % (MANUAL) 1 % (0-7); LYMPHOCYTES % (MANUAL) 13 % (19-48); MONOCYTES % (MANUAL) 14 % (3.4-9.0); NEUTROPHILS % (MANUAL) 72 % (40-74); PLATELET ESTIMATE ADEQUATE; PLATELET MORPHOLOGY COMMENT NORMAL; RBC MORPHOLOGY COMMENT NORMAL
[2018-02-08 16:23] LABS: ANION GAP 14.2 mmol/L (8-16); CALCIUM 9.2 mg/dL (8.4-10.2); CREATININE, SERUM 1.09 mg/dL (0.57-1.11); POTASSIUM 3.2 mmol/L (3.5-5.1)
[2018-02-08] MEDS: WARFARIN SOD 5 MG TAB PO SCH (16:31)
--- NOTE | 2018-02-08 18:00 | Diagnostic Imaging Report ---
EXAM: Complete Abdominal Ultrasound INDICATION: Right-sided abdominal pain. Elevated LFTs. COMPARISON: None. Correlation with CT chest dated 02/06/2018. TECHNIQUE: Transverse and longitudinal images of the upper abdomen were obtained. FINDINGS: Liver: Size: 15.6 cm in the right midclavicular line, borderline enlarged. Appearance: Mildly coarsened echotexture diffusely with mild nodular contour. contour Mass: No focal masses Spleen: Size: 10.2 cm in length, normal Echogenicity: Normal Mass: No focal masses Gallbladder: Stones/Sludge: Heterogeneous material within the gallbladder lumen suggestive of sludge and possibly gravel stones. Wall: 0.5 cm, thickened and heterogeneous. Appearance: No wall thickening, pericholecystic fluid or hydrops. Sonographic Milton's Sign: Negative Bile Ducts: Intrahepatic Ducts: No dilatation Extrahepatic Ducts: Common bile duct measures 0.5 cm, no dilatation Pancreas: Visualized portions of the pancreatic head, neck and proximal body are normal. Kidneys: Length: Right 10.6 cm Left 12.0 cm Echogenicity: Normal Collecting System: No hydronephrosis Stone: None Cyst/Mass: None Vessels: Aorta: Visualized portions are normal Inferior Vena Cava: Visualized portions are normal Main Portal Vein: 0.5 cm, normal size with hepatopetal flow. Free Fluid: No ascites or pleural effusion IMPRESSION: 1. Gallbladder sludge with possible gravel stones. Diffuse gallbladder wall thickening with a negative Milton's sign (presuming no premedication administered prior to the exam). This findings could reflect hepatocellular disease, hypoalbuminemia, however, acute cholecystitis is within the differential diagnosis in the proper clinical setting. 2. Mild coarsened echotexture and increased echogenicity of hepatic parenchyma with a slight nodular contour. Recommend MRI of abdomen without and with contrast with MRCP for further evaluation of this findings. Signed by: Dr. Gomez Trinidad M.D. on 02/08/2018 5:57 PM
[2018-02-08] MEDS: TEMAZEPAM 15 MG CAP PO PRN (21:33)
[2018-02-08] MEDS: NORTRIPTYLINE HCL 25 MG CAP PO SCH (21:33)
[2018-02-09] VITALS (7 sets, daily range): BP systolic 118–152; BP diastolic 59–76
[2018-02-09] MEDS: SODIUM CHLORIDE 0.9% 1000ML 1,000 ML IV SCH (02:46)
[2018-02-09 05:35] LABS: BASOPHILS # (AUTO) 0.1 (0.0-0.1); BASOPHILS % 0.5 % (0.0-1.0); EOSINOPHILS # (AUTO) 0.1 (0.0-0.4); EOSINOPHILS % 0.6 % (0.0-6.0); HEMATOCRIT 28.2 % (34.2-44.1); HEMOGLOBIN 8.8 g/dL (12.0-16.0); LYMPHOCYTES # (AUTO) 1.4 (1.0-3.2); LYMPHOCYTES % 12.5 % (18.0-39.1); MEAN CORPUSCULAR HGB CONC 31.2 g/dL (31-35); MEAN CORPUSCULAR VOLUME 83.4 fL (81-99); MONOCYTES # (AUTO) 1.6 (0.2-0.8); MONOCYTES % 14.9 % (4.4-11.3); NEUTROPHILS # (AUTO) 7.5 (2.1-6.9); NEUTROPHILS % 69.6 % (38.7-80.0); PLATELET COUNT 136 x10e3/uL (140-360); RED BLOOD COUNT 3.38 x10e6/uL (3.6-5.1); RED CELL DISTRIBUTION WIDTH 14.3 % (11.7-14.4)
[2018-02-09 05:52] LABS: INR 2.54; PROTHROMBIN TIME 29.2 seconds (11.9-14.5)
[2018-02-09 05:59] LABS: ALBUMIN 2.6 g/dL (3.5-5.0); ALBUMIN/GLOBULIN RATIO 0.8 (0.8-2.0); ANION GAP 11.1 mmol/L (8-16); CALCIUM 8.9 mg/dL (8.4-10.2); CREATININE, SERUM 0.99 mg/dL (0.57-1.11); POTASSIUM 3.1 mmol/L (3.5-5.1)
[2018-02-09 06:27] LABS: AMYLASE 32 U/L (25-125); LIPASE 29 U/L (8-78)
[2018-02-09] MEDS ORDERED: POTASSIUM CHLORIDE 20 MEQ TAB CR PO NR (07:15)
[2018-02-09] MEDS: PRAMIPEXOLE DIHYDROCHLORIDE 1 MG TAB PO SCH ×2 (08:33→17:00)
[2018-02-09] MEDS: VANCOMYCIN 1GM/NS 250 ML 250 ML IV SCH (08:33)
[2018-02-09] MEDS: HYDRALAZINE HCL 25 MG TAB PO SCH ×3 (08:33→23:42)
[2018-02-09] MEDS: VITAMIN B-COMPLEX PO SCH (08:33)
[2018-02-09] MEDS: MULTIVITAMINS/MINERALS TAB PO SCH (08:33)
[2018-02-09] MEDS: OMEGA 3 POLYUNSAT FATTY ACIDS 1000 MG SOFTGEL PO SCH (08:33)
[2018-02-09] MEDS: AZITHROMYCIN 500MG/NS 250 ML 250 ML IV SCH (08:33)
[2018-02-09] MEDS: LOSARTAN POTASSIUM 100 MG TAB PO SCH (08:33)
--- NOTE | 2018-02-09 09:59 | Consultation ---
DATE OF CONSULTATION: February 09, 2018 This is a 77-year-old who presented to the hospital because of problems with fever up to 103, myalgias, and some mental status changes. The patient apparently was found to have sepsis with pneumonia. GI consult is obtained because her liver function tests were significantly elevated. It was 39 on admission and now went up all the way to 1000. She denies any history of liver disease. She has abdominal discomfort or pain but not having any jaundice, nausea or vomiting at this point. She had an abdominal ultrasound that was done yesterday, which shows sludge and gravel stones with mild thickening of the gallbladder wall. She is also anemic at this point. Hepatitis is pending. Her other medical problems are significant for history of chronic renal disease, hypertension, CHF, coronary artery disease, history of atrial fibrillation and atrial flutter, history of breast cancer. ALLERGIES: NONE. SOCIAL HISTORY: Denies any alcohol use. FAMILY HISTORY: Noncontributory. CURRENT MEDICATIONS: Include Mirapex, Cozaar, Apresoline, vancomycin, azithromycin, Restoril, Pamelor, warfarin, Lopressor, Zofran. REVIEW OF SYSTEMS: At this point, she denies any chest pain. Denies any shortness of breath. Denies any dysphagia or odynophagia. Denies any dysuria or hematuria or any kind of syncopal episode. PHYSICAL EXAMINATION GENERAL: This woman is awake, alert, appears to be stable, not in acute distress at this point. VITAL SIGNS: Afebrile currently with stable vital signs. HEAD, EYES, EARS, NOSE AND THROAT: Normocephalic and atraumatic. Sclerae are anicteric. NECK: Supple. CARDIAC: Regular. LUNGS: Clear. ABDOMEN: Soft. There is mild epigastric tenderness. There is no rebound or mass. EXTREMITIES: No clubbing. LAB VALUES: Significant for WBC of 10. Hemoglobin 8.8, currently 8. Chemistry: BUN 37, creatinine 0.9. Liver enzymes: AST 1400 yesterday, today 1100. ALT is 1000. PT 29, INR 2.54. IMPRESSION 1. Elevation of some liver function tests. I suspect this is acute injury from possible drug induced with antibiotic. Rule out cholecystitis. She has gallstones, and there is some thickening in the wall. 2. History of sepsis and pneumonia. 3. Anemia. At this point, there is no bleeding. RECOMMENDATIONS: Will obtain a HIDA scan and follow labs in that it is going down. Will consider stopping antibiotics. I will discuss with Dr. Wong. Follow clinically. Job#: [id number] cc:MD GAGE CAMERON MD
[2018-02-09] MEDS: METOPROLOL TARTRATE 25 MG TAB PO SCH ×2 (12:38→17:00)
[2018-02-09] MEDS ORDERED: POTASSIUM CHLORIDE 20 MEQ TAB CR PO SCH (14:30)
[2018-02-09] MEDS: HYDROCODONE/APAP 10MG-325MG TAB PO PRN ×2 (14:57→23:05)
[2018-02-09] MEDS ORDERED: FUROSEMIDE INJ 10 MG/ML 4 ML VIAL IV ONE (15:00)
--- NOTE | 2018-02-09 17:17 | Diagnostic Imaging Report ---
Hepatobiliary Scan with Gallbladder Ejection Fraction Clinical information: 77 F with sepsis and RUQ abdominal pain. Technique: Following intravenous administration of 6.6 millicuries of Tc-99m mebrofenin, dynamic images of the abdomen in the anterior projection were obtained through 32 minutes. Sincalide (CCK analog) 1.6 micrograms was administered intravenously over 30 minutes with additional imaging for determination of gallbladder ejection fraction. Discussion: Perfusion of the liver is normal. Extraction of tracer by the liver parenchyma is normal. Tracer appears promptly within the biliary tract. The gallbladder begins to fill at 6 minutes post injection of tracer and fills adequately. Tracer is seen in the small bowel during the sincalide infusion. There is no contractile response by the gallbladder to the pharmacologic dose of sincalide. No emptying of the gallbladder occurs during the 30 minute infusion. Impression: 1. Filling of the gallbladder excludes acute cystic duct obstruction/acute cholecystitis. 2. The gallbladder ejection fraction is undefined as there is no emptying of the gallbladder during the infusion of sincalide. This absence of a contractile response to sincalide supports the clinical diagnosis of chronic cholecystitis/gallbladder dyskinesia. Signed by: Dr. Megan Malhotra M.D. on 02/09/2018 5:13 PM
[2018-02-09] MEDS: NORTRIPTYLINE HCL 25 MG CAP PO SCH (23:42)
[2018-02-10] VITALS (7 sets, daily range): BP systolic 118–140; BP diastolic 55–67
[2018-02-10 05:36] LABS: BASOPHILS # (AUTO) 0.1 (0.0-0.1); BASOPHILS % 0.6 % (0.0-1.0); EOSINOPHILS # (AUTO) 0.2 (0.0-0.4); EOSINOPHILS % 2.1 % (0.0-6.0); HEMATOCRIT 28.4 % (34.2-44.1); LYMPHOCYTES # (AUTO) 1.9 (1.0-3.2); LYMPHOCYTES % 16.4 % (18.0-39.1); MEAN CORPUSCULAR HEMOGLOBIN 26.5 pg (28-32); MEAN CORPUSCULAR HGB CONC 31.7 g/dL (31-35); MEAN CORPUSCULAR VOLUME 83.5 fL (81-99); MONOCYTES # (AUTO) 2.1 (0.2-0.8); MONOCYTES % 17.8 % (4.4-11.3); NEUTROPHILS # (AUTO) 7.1 (2.1-6.9); NEUTROPHILS % 60.4 % (38.7-80.0); PLATELET COUNT 151 x10e3/uL (140-360); RED CELL DISTRIBUTION WIDTH 14.4 % (11.7-14.4)
[2018-02-10 06:01] LABS: INR 2.44; PROTHROMBIN TIME 28.3 seconds (11.9-14.5)
[2018-02-10 06:13] LABS: ALBUMIN 2.7 g/dL (3.5-5.0); ALBUMIN/GLOBULIN RATIO 0.9 (0.8-2.0); ANION GAP 13.6 mmol/L (8-16); CALCIUM 8.9 mg/dL (8.4-10.2); POTASSIUM 3.6 mmol/L (3.5-5.1)
[2018-02-10 07:55] LABS: EOSINOPHILS % (MANUAL) 1 % (0-7); LYMPHOCYTES % (MANUAL) 11 % (19-48); MONOCYTES % (MANUAL) 15 % (3.4-9.0); MYELOCYTES % (MANUAL) 2 % (0-0); NEUTROPHILS % (MANUAL) 69 % (40-74); NUCLEATED RED BLOOD CELLS 1
[2018-02-10 07:56] LABS: ANISOCYTOSIS SLIGHT; HYPOCHROMASIA SLIGHT; PLATELET ESTIMATE ADEQUATE; PLATELET MORPHOLOGY COMMENT NORMAL; POIKILOCYTOSIS SLIGHT; RBC MORPHOLOGY COMMENT NORMAL
[2018-02-10] MEDS: METOPROLOL TARTRATE 25 MG TAB PO SCH ×2 (08:41→17:12)
[2018-02-10] MEDS: VANCOMYCIN 1GM/NS 250 ML 250 ML IV SCH (08:41)
[2018-02-10] MEDS: PRAMIPEXOLE DIHYDROCHLORIDE 1 MG TAB PO SCH ×2 (08:41→17:12)
[2018-02-10] MEDS: SPIRONOLACTONE 25 MG TAB PO SCH (08:41)
[2018-02-10] MEDS: LOSARTAN POTASSIUM 100 MG TAB PO SCH (08:41)
[2018-02-10] MEDS: VITAMIN B-COMPLEX PO SCH (08:41)
[2018-02-10] MEDS: HYDRALAZINE HCL 25 MG TAB PO SCH ×3 (08:41→21:00)
[2018-02-10] MEDS: AZITHROMYCIN 500MG/NS 250 ML 250 ML IV SCH (08:41)
[2018-02-10] MEDS: OMEGA 3 POLYUNSAT FATTY ACIDS 1000 MG SOFTGEL PO SCH (08:41)
[2018-02-10] MEDS ORDERED: POTASSIUM CHLORIDE 20 MEQ TAB CR PO STA (11:08)
[2018-02-10] MEDS ORDERED: FUROSEMIDE INJ 10 MG/ML 4 ML VIAL IV ONE (11:15)
[2018-02-10] MEDS ORDERED: WARFARIN SOD 5 MG TAB PO SCH (17:00)
[2018-02-10] MEDS ORDERED: WARFARIN SOD 3 MG TAB PO SCH (17:00)
[2018-02-10] MEDS: NORTRIPTYLINE HCL 25 MG CAP PO SCH (23:06)
[2018-02-10] MEDS: TEMAZEPAM 15 MG CAP PO PRN (23:24)
[2018-02-11] VITALS (7 sets, daily range): BP systolic 107–145; BP diastolic 55–73
[2018-02-11 05:58] LABS: INR 1.95; PROTHROMBIN TIME 23.8 seconds (11.9-14.5)
[2018-02-11 07:03] LABS: BASOPHILS # (AUTO) 0.1 (0.0-0.1); BASOPHILS % 0.7 % (0.0-1.0); EOSINOPHILS # (AUTO) 0.3 (0.0-0.4); HEMOGLOBIN 9.4 g/dL (12.0-16.0); LYMPHOCYTES # (AUTO) 2.6 (1.0-3.2); LYMPHOCYTES % 17.3 % (18.0-39.1); MEAN CORPUSCULAR HEMOGLOBIN 26.7 pg (28-32); MEAN CORPUSCULAR HGB CONC 31.3 g/dL (31-35); MEAN CORPUSCULAR VOLUME 85.2 fL (81-99); MONOCYTES # (AUTO) 2.3 (0.2-0.8); MONOCYTES % 15.2 % (4.4-11.3); NEUTROPHILS # (AUTO) 9.3 (2.1-6.9); NEUTROPHILS % 61.9 % (38.7-80.0); PLATELET COUNT 192 x10e3/uL (140-360); RED BLOOD COUNT 3.52 x10e6/uL (3.6-5.1); RED CELL DISTRIBUTION WIDTH 14.7 % (11.7-14.4)
[2018-02-11 07:17] LABS: ALBUMIN 2.9 g/dL (3.5-5.0); ALBUMIN/GLOBULIN RATIO 0.8 (0.8-2.0); ANION GAP 13.4 mmol/L (8-16); CALCIUM 9.2 mg/dL (8.4-10.2); CREATININE, SERUM 0.95 mg/dL (0.57-1.11); POTASSIUM 3.4 mmol/L (3.5-5.1)
[2018-02-11] MEDS: VANCOMYCIN 1GM/NS 250 ML 250 ML IV SCH (08:45)
[2018-02-11] MEDS: VITAMIN B-COMPLEX PO SCH (08:46)
[2018-02-11] MEDS: OMEGA 3 POLYUNSAT FATTY ACIDS 1000 MG SOFTGEL PO SCH (08:46)
[2018-02-11] MEDS: SPIRONOLACTONE 25 MG TAB PO SCH (08:46)
[2018-02-11] MEDS: PRAMIPEXOLE DIHYDROCHLORIDE 1 MG TAB PO SCH ×2 (08:46→17:09)
[2018-02-11] MEDS: METOPROLOL TARTRATE 25 MG TAB PO SCH ×2 (08:46→17:09)
[2018-02-11] MEDS: HYDRALAZINE HCL 25 MG TAB PO SCH ×3 (08:46→21:52)
[2018-02-11] MEDS: LOSARTAN POTASSIUM 100 MG TAB PO SCH (08:46)
[2018-02-11] MEDS: POTASSIUM CHLORIDE 20 MEQ TAB CR PO SCH ×2 (11:03→17:09)
[2018-02-11] MEDS: FUROSEMIDE 40 MG TAB PO SCH ×2 (11:03→17:09)
[2018-02-11] MEDS: HYDROCODONE/APAP 10MG-325MG TAB PO PRN (12:09)
[2018-02-11] MEDS: AZITHROMYCIN 500MG/NS 250 ML 250 ML IV SCH (12:31)
[2018-02-11] MEDS ORDERED: WARFARIN SOD 3 MG TAB PO SCH (17:00)
[2018-02-11] MEDS ORDERED: POTASSIUM CHLORIDE 20MEQ/100ML 100 ML IV ONE (18:45)
[2018-02-11] MEDS ORDERED: SODIUM CHLORIDE 0.9% 250ML 0 ML ONE (19:45)
[2018-02-11] MEDS ORDERED: WARFARIN SOD 2 MG TAB PO ONE (20:30)
[2018-02-11] MEDS: NORTRIPTYLINE HCL 25 MG CAP PO SCH (21:52)
[2018-02-11] MEDS: TEMAZEPAM 15 MG CAP PO PRN (22:30)
[2018-02-12] VITALS (8 sets, daily range): BP systolic 99–136; BP diastolic 5–63
[2018-02-12 06:03] LABS: INR 1.71; PROTHROMBIN TIME 21.4 seconds (11.9-14.5)
[2018-02-12 06:07] LABS: ALANINE AMINOTRANSFERASE 492 IU/L (0-55); ALBUMIN 2.9 g/dL (3.5-5.0); ALBUMIN/GLOBULIN RATIO 0.8 (0.8-2.0); ALKALINE PHOSPHATASE 123 IU/L (40-150); ANION GAP 13.9 mmol/L (8-16); BLOOD UREA NITROGEN 19 mg/dL (7-26); BUN/CREATININE RATIO 22 (6-25); CALCIUM 9.1 mg/dL (8.4-10.2); CARBON DIOXIDE 24 mmol/L (22-29); CHLORIDE 105 mmol/L (98-107); CREATININE, SERUM 0.87 mg/dL (0.57-1.11); EST GLOMERULAR FILTRATION RATE > 60 ML/MIN (60-); GLUCOSE 112 mg/dL (74-118); POTASSIUM 3.9 mmol/L (3.5-5.1); SODIUM 139 mmol/L (136-145)
[2018-02-12] MEDS: FUROSEMIDE 40 MG TAB PO SCH ×2 (06:18→17:08)
[2018-02-12] MEDS: VITAMIN B-COMPLEX PO SCH (08:23)
[2018-02-12] MEDS: HYDROCODONE/APAP 10MG-325MG TAB PO PRN (08:34)
[2018-02-12] MEDS: SPIRONOLACTONE 25 MG TAB PO SCH (08:35)
[2018-02-12] MEDS: VANCOMYCIN 1GM/NS 250 ML 250 ML IV SCH (08:35)
[2018-02-12] MEDS: PRAMIPEXOLE DIHYDROCHLORIDE 1 MG TAB PO SCH ×2 (08:37→17:08)
[2018-02-12] MEDS: OMEGA 3 POLYUNSAT FATTY ACIDS 1000 MG SOFTGEL PO SCH (08:37)
[2018-02-12] MEDS: LOSARTAN POTASSIUM 100 MG TAB PO SCH (08:38)
[2018-02-12] MEDS: HYDRALAZINE HCL 25 MG TAB PO SCH ×3 (08:38→21:23)
[2018-02-12] MEDS: METOPROLOL TARTRATE 25 MG TAB PO SCH ×2 (08:38→17:08)
[2018-02-12] MEDS: AZITHROMYCIN 500MG/NS 250 ML 250 ML IV SCH (10:21)
[2018-02-12] MEDS ORDERED: METOLAZONE 5 MG TAB PO ONE (12:00)
[2018-02-12] MEDS ORDERED: WARFARIN SOD 3 MG TAB PO SCH (17:00)
[2018-02-12] MEDS: WARFARIN SOD 5 MG TAB PO SCH (17:08)
[2018-02-12] MEDS: NORTRIPTYLINE HCL 25 MG CAP PO SCH (21:23)
[2018-02-12] MEDS: TEMAZEPAM 15 MG CAP PO PRN (21:28)
[2018-02-13] VITALS (7 sets, daily range): BP systolic 123–150; BP diastolic 56–74
[2018-02-13 05:56] LABS: BASOPHILS # (AUTO) 0.1 (0.0-0.1); BASOPHILS % 0.8 % (0.0-1.0); EOSINOPHILS # (AUTO) 0.4 (0.0-0.4); EOSINOPHILS % 3.7 % (0.0-6.0); HEMATOCRIT 30.5 % (34.2-44.1); HEMOGLOBIN 9.4 g/dL (12.0-16.0); LYMPHOCYTES # (AUTO) 2.3 (1.0-3.2); LYMPHOCYTES % 19.7 % (18.0-39.1); MEAN CORPUSCULAR HGB CONC 30.8 g/dL (31-35); MEAN CORPUSCULAR VOLUME 84.5 fL (81-99); MONOCYTES # (AUTO) 1.6 (0.2-0.8); MONOCYTES % 13.3 % (4.4-11.3); NEUTROPHILS # (AUTO) 7.2 (2.1-6.9); NEUTROPHILS % 61.1 % (38.7-80.0); PLATELET COUNT 222 x10e3/uL (140-360); RED BLOOD COUNT 3.61 x10e6/uL (3.6-5.1); RED CELL DISTRIBUTION WIDTH 15.3 % (11.7-14.4)
[2018-02-13 06:12] LABS: ALBUMIN 3.1 g/dL (3.5-5.0); ALBUMIN/GLOBULIN RATIO 0.8 (0.8-2.0); ANION GAP 14.7 mmol/L (8-16); CALCIUM 9.6 mg/dL (8.4-10.2); CREATININE, SERUM 0.93 mg/dL (0.57-1.11); POTASSIUM 3.7 mmol/L (3.5-5.1)
[2018-02-13 06:14] LABS: INR 1.78; PROTHROMBIN TIME 22.1 seconds (11.9-14.5)
[2018-02-13] MEDS: FUROSEMIDE 40 MG TAB PO SCH ×2 (06:41→17:23)
[2018-02-13] MEDS: HYDRALAZINE HCL 25 MG TAB PO SCH ×3 (07:28→21:27)
[2018-02-13 08:22] LABS: BAND NEUTROPHILS % (MANUAL) 2 %; EOSINOPHILS % (MANUAL) 4 % (0-7); LYMPHOCYTES % (MANUAL) 11 % (19-48); MONOCYTES % (MANUAL) 12 % (3.4-9.0); NEUTROPHILS % (MANUAL) 71 % (40-74); PLATELET ESTIMATE ADEQUATE; PLATELET MORPHOLOGY COMMENT NORMAL; RBC MORPHOLOGY COMMENT NORMAL
[2018-02-13] MEDS: LOSARTAN POTASSIUM 100 MG TAB PO SCH (08:45)
[2018-02-13] MEDS: SPIRONOLACTONE 25 MG TAB PO SCH (08:45)
[2018-02-13] MEDS: POTASSIUM CHLORIDE 20 MEQ TAB CR PO SCH (08:46)
[2018-02-13] MEDS: PRAMIPEXOLE DIHYDROCHLORIDE 1 MG TAB PO SCH ×2 (08:46→17:23)
[2018-02-13] MEDS: METOPROLOL TARTRATE 25 MG TAB PO SCH ×2 (08:46→17:23)
[2018-02-13] MEDS: OMEGA 3 POLYUNSAT FATTY ACIDS 1000 MG SOFTGEL PO SCH (08:46)
[2018-02-13] MEDS: VITAMIN B-COMPLEX PO SCH (09:00)
[2018-02-13] MEDS ORDERED: METOLAZONE 5 MG TAB PO ONE (09:45)
[2018-02-13] MEDS: HYDROCODONE/APAP 10MG-325MG TAB PO PRN (10:56)
--- NOTE | 2018-02-13 11:51 | Diagnostic Imaging Report ---
EXAMINATION: CHEST 2 VIEWS INDICATION: SOB COMPARISON: CT Chest 02/06/2018. FINDINGS: TUBES and LINES: Left sided pacemaker with leads in unchanged position. LUNGS: Multifocal bilateral patchy and interstitial opacities are again noted. Left lower lobe nodule on CT from 02/06/2018 is not well seen by radiograph. PLEURA: Trace bilateral pleural effusions. No evidence of pneumothorax. HEART AND MEDIASTINUM: The cardiomediastinal silhouette is unchanged. BONES AND SOFT TISSUES: No acute osseous lesion. Soft tissues are unremarkable. Status post median sternotomy. UPPER ABDOMEN: No free air under the diaphragm. IMPRESSION: Multifocal patchy and interstitial pulmonary opacities, in a similar distribution to CT on 02/06/2018 which could represent pulmonary edema and/or atypical pneumonia. A left lower lobe nodule on CT from 02/06/2018 is not well seen by radiograph and a 3 month follow-up chest CT was suggested on the prior report to assess for resolution. Signed by: Dr. Cristi Purcell MD on 02/13/2018 11:47 AM
[2018-02-13] MEDS ORDERED: POTASSIUM CHLORIDE 20 MEQ TAB CR PO ONE (14:00)
--- NOTE | 2018-02-13 17:06 | Diagnostic Imaging Report ---
Examination: CT head without contrast Clinical Indication: Slurred speech. Technique: Transaxial noncontrast images from the skull base through the vertex were obtained. Sagittal and coronal reformatted images were done. Dose modulation, iterative reconstruction, and/or weight based adjustment of the mA/kV was utilized to reduce the radiation dose to as low as reasonably achievable. Comparison: None. Findings: Scalp: No abnormalities. Bones: Intact. No fractures. No blastic or lytic lesions. Brain sulci: Appropriate for patient's age. Ventricles: Normal in size and configuration. No hydrocephalus. . Extra-axial space: No abnormalities. Parenchyma: There are patchy areas of low-attenuation within subcortical and periventricular white matter, nonspecific, but could represent microvascular ischemic disease. No masses, hemorrhage, or acute or chronic cortical based vascular insults. Suprasellar region: No abnormalities. Craniocervical junction: The foramen magnum is patent. No Chiari one malformation. Incidental findings: Atherosclerotic calcification of the cavernous and supraclinoid internal carotid arteries. Impression: 1. No acute intracranial finding. 2. Mild chronic microvascular ischemic change. Signed by: Dr. Sofia Patterson M.D. on 02/13/2018 5:03 PM
[2018-02-13] MEDS: WARFARIN SOD 5 MG TAB PO SCH (17:23)
[2018-02-13] MEDS: NORTRIPTYLINE HCL 25 MG CAP PO SCH (21:27)
[2018-02-13] MEDS: TEMAZEPAM 15 MG CAP PO PRN (21:28)
[2018-02-14] VITALS (8 sets, daily range): BP systolic 123–146; BP diastolic 53–63
--- NOTE | 2018-02-14 01:17 | Consultation ---
DATE OF CONSULTATION: February 13, 2018 NEUROLOGY CONSULT NOTE HISTORY OF PRESENT ILLNESS: Ms. Kay is a 77-year-old right hand dominant woman with past medical history significant for hypertension, hyperlipidemia, coronary artery disease, and chronic atrial fibrillation, admitted to [facility] on February 05, 2018 with sepsis secondary to pneumonia. The neurology service is consulted for intermittent dysarthria. On the morning of February 13, 2018, the patient was noted by her and her daughter to have dysarthric speech. According to the patient's , this has occurred intermittently over the past week. Oftentimes, dysarthria has occurred when the patient has had a high fever and mild confusion. The duration of the dysarthria is unknown. Ms. Kay does not report a visual field cut or other disturbance, aphasia, facial droop, hemiparesis, or dizziness. The patient does report poor balance and gait impairment, but this is chronic and probably secondary to her peripheral neuropathy. Ms. Kay is under the care of an outpatient neurologist, Dr. Jamison Friday. REVIEW OF SYSTEMS: Fever, confusion, dysarthria, impairment of balance and gait (chronic). PAST MEDICAL HISTORY: Hypertension, hyperlipidemia, coronary artery disease, chronic atrial fibrillation, left breast cancer, status post left mastectomy, and peripheral neuropathy. PAST SURGICAL HISTORY: Two-vessel CABG, pacemaker placement, left mastectomy, bladder suspension, hysterectomy, bilateral oophorectomy and appendectomy, breast implants, subsequent removal of breast implants, second set of breast implants, and left knee arthroscopy. PAST HOSPITALIZATIONS: Surgeries/procedures as listed, flu and pneumonia. PAST MEDICAL HISTORY: Heart disease, breast cancer. SOCIAL HISTORY: Ms. Kay is . She is retired. The patient does report a prior history of tobacco use, but she quit smoking cigarettes in either 1991 or 1992. The patient does not report current or prior alcohol or recreational drug use. HOME MEDICATIONS: Please see the list of home medications available in the electronic medical records. HOSPITAL MEDICATIONS: Please see list of hospital medications available in the electronic medical record. ALLERGIES: NO KNOWN DRUG ALLERGIES. NO KNOWN FOOD ALLERGIES. NO KNOWN ALLERGIES TO LATEX. NO KNOWN ALLERGIES TO IODINE OR OTHER CONTRAST MATERIALS. PHYSICAL EXAMINATION VITAL SIGNS: Height 66 inches, weight 168 pounds, BMI 27.1 kg per meter squared, blood pressure 124/56 mmHg, pulse 70 beats per minute, respiratory rate 17 breaths per minute, and oxygen saturation 99% on room air. GENERAL: The patient is awake and alert, does not appear distressed. Overweight. HEENT: Normocephalic, atraumatic. Pupils are surgical. Moist mucous membranes. NECK: Supple. No appreciable thyromegaly. No appreciable carotid bruits. CARDIOVASCULAR: S1, S2. Regular rate and rhythm. No murmurs, rubs, or gallops. RESPIRATORY: Clear to auscultation bilaterally. No wheezes, rhonchi or rales. EXTREMITIES: The skin is warm and dry. No clubbing or cyanosis. There is trace pretibial pitting edema present. The posterior tibial and dorsalis pedis pulses are 1+ and symmetric. SKIN: The skin appears erythematous over the feet and distal forelegs.. NEUROLOGIC: Memory/Attention: The patient is awake and alert, oriented to person, place, time, and situation. Cranial Nerves: Cranial nerve I-not tested. Cranial nerve II, III, IV, and -pupils are surgical. Extraocular movements intact. No nystagmus. Cranial nerve V-sensation to light touch and pinprick is intact in the bilateral V1 through V3 distributions. Strength of the temporalis and masseter muscles is within normal limits. Cranial nerve VII-the face is symmetric as are all facial movements. Strength is within normal limits. Cranial nerve VIII-hearing is diminished to finger rub bilaterally. Cranial nerve IX, X-the soft palate elevates equally and symmetrically. Cranial nerve XI-normal strength of the bilateral sternocleidomastoid and trapezius muscles. Cranial nerve XII-the tongue protrudes midline and moves symmetrically [id number]. Strength: Bulk is normal. Strength is 5/5 in the bilateral deltoids, biceps, triceps, wrist flexors extensors, finger flexors and extensors, intrinsic hand muscles, hip flexors, knee flexors and extensors, ankle dorsiflexion and plantar flexion, and intrinsic foot muscles. Tone is normal. DTRs: Deep tendon reflexes are 1+ and symmetric at the triceps, biceps, brachioradialis, and patellas. Deep tendon reflexes are absent and symmetric at the Achilles. Plantar responses are flexor bilaterally. Sensation: Sensation is diminished to light touch and pinprick in a stocking distribution. Cerebellar: [id number] and heel-larose movements are intact without dysmetria or other impairment. Gait: Deferred. Speech: Spontaneous speech is normal without appreciable dysarthria or aphasia. Repetition is intact. Involuntary Movements: None. Pronator Drift: None. LABORATORY DATA: The patient's most recent comprehensive metabolic panel is significant for a mildly decreased GFR of 58, and mildly elevated AST of 91, an elevated ALT of 393, a low serum albumin of 3.1, and an elevated serum globulin of 3.8. The most recent CBC with differential and platelets reveals a white blood cell count of 11.77 with 61.1% neutrophils, 19.7% lymphocytes, 13.3% monocytes, 3.7% basophils, and 0.8% eosinophils. The hemoglobin and hematocrit are 9.4 and 30.5 respectively. The platelet count is 222. The most recent PT is 22.1. The most recent INR is 1.78. A urine culture collected on February 06, 2018 revealed no growth after 36 to 48 hours. Blood cultures collected on February 05, 2018 revealed no growth after 5 days x2. DIAGNOSTIC STUDIES 1. Electrocardiogram on February 06, 2018: Electronic ventricular pacemaker at 75 beats per minute. 2. Echocardiogram on February 05, 2018: Ejection fraction of 55 to 60%. Concentric left ventricular hypertrophy. Left atrial enlargement. Trace mitral regurgitation. Mild tricuspid regurgitation. 3. CT of the brain without contrast on February 13, 2018: On my review, there is no evidence of recent large territorial ischemia, hemorrhage, mass, or mass effect. Cerebral volume is appropriate for age. There are findings compatible with moderate chronic small-vessel ischemic disease. ASSESSMENT AND PLAN: Ms. Kay is a 77-year-old right-hand dominant woman with past medical history as detailed, admitted to [facility] on February 05, 2018 with pneumonia and sepsis as well as intermittent dysarthria. The patient's neurological examination is nonfocal at present. Ms. Kay's laboratory data and other diagnostic studies have been reviewed and are documented as above. Recent neuroimaging studies did not reveal a stroke or intracerebral hemorrhage. There is nothing in the patient's medical history nor her neurological examination suggestive of an underlying neuromuscular disorder as the cause of her dysarthria. Therefore, dysarthria is secondary to fatigue due to a prolonged hospitalization and underlying infection as well as medication effect ([place]). Ms. Kay and her were made aware of these findings. Both were reassured that dysarthria will gradually improve as the patient recovers from her infectious illness and prolonged hospitalization. There are no further recommendations from the neurology service at that time. Please contact the neurology service again if other concerns arise. Time spent: 70 minutes. Job#: [id number] [id number]
[2018-02-14 04:44] LABS: BASOPHILS # (AUTO) 0.1 (0.0-0.1); BASOPHILS % 0.6 % (0.0-1.0); EOSINOPHILS # (AUTO) 0.4 (0.0-0.4); EOSINOPHILS % 4.1 % (0.0-6.0); HEMATOCRIT 32.8 % (34.2-44.1); HEMOGLOBIN 10.1 g/dL (12.0-16.0); LYMPHOCYTES # (AUTO) 2.5 (1.0-3.2); LYMPHOCYTES % 25.8 % (18.0-39.1); MEAN CORPUSCULAR HEMOGLOBIN 26.2 pg (28-32); MEAN CORPUSCULAR HGB CONC 30.8 g/dL (31-35); MONOCYTES # (AUTO) 1.6 (0.2-0.8); MONOCYTES % 17.1 % (4.4-11.3); NEUTROPHILS # (AUTO) 4.9 (2.1-6.9); NEUTROPHILS % 51.6 % (38.7-80.0); PLATELET COUNT 249 x10e3/uL (140-360); RED BLOOD COUNT 3.86 x10e6/uL (3.6-5.1); RED CELL DISTRIBUTION WIDTH 15.5 % (11.7-14.4)
[2018-02-14 05:04] LABS: ALBUMIN 3.1 g/dL (3.5-5.0); ALBUMIN/GLOBULIN RATIO 0.8 (0.8-2.0); ANION GAP 14.4 mmol/L (8-16); CALCIUM 10.5 mg/dL (8.4-10.2); CREATININE, SERUM 1.07 mg/dL (0.57-1.11); POTASSIUM 4.4 mmol/L (3.5-5.1)
[2018-02-14 05:20] LABS: EOSINOPHILS % (MANUAL) 3 % (0-7); LYMPHOCYTES % (MANUAL) 22 % (19-48); METAMYELOCYTES % (MANUAL) 1 % (0-0); MONOCYTES % (MANUAL) 9 % (3.4-9.0); NEUTROPHILS % (MANUAL) 60 % (40-74)
[2018-02-14 05:21] LABS: PLATELET ESTIMATE ADEQUATE; PLATELET MORPHOLOGY COMMENT FEW GIANT; RBC MORPHOLOGY COMMENT NORMAL
[2018-02-14] MEDS: FUROSEMIDE 40 MG TAB PO SCH ×2 (06:44→17:07)
[2018-02-14] MEDS: HYDRALAZINE HCL 25 MG TAB PO SCH ×3 (08:55→21:09)
[2018-02-14] MEDS: SPIRONOLACTONE 25 MG TAB PO SCH (08:55)
[2018-02-14] MEDS: PRAMIPEXOLE DIHYDROCHLORIDE 1 MG TAB PO SCH ×2 (08:56→17:07)
[2018-02-14] MEDS: VITAMIN B-COMPLEX PO SCH (08:56)
[2018-02-14] MEDS: LOSARTAN POTASSIUM 100 MG TAB PO SCH (08:56)
[2018-02-14] MEDS: OMEGA 3 POLYUNSAT FATTY ACIDS 1000 MG SOFTGEL PO SCH (08:56)
[2018-02-14] MEDS: POTASSIUM CHLORIDE 20 MEQ TAB CR PO SCH (08:56)
[2018-02-14] MEDS: METOPROLOL TARTRATE 25 MG TAB PO SCH ×2 (08:56→17:07)
[2018-02-14 09:06] LABS: INR 1.8; PROTHROMBIN TIME 22.3 seconds (11.9-14.5)
--- NOTE | 2018-02-14 10:10 | Consultation ---
DATE OF CONSULTATION: February 14, 2018 REFERRING PHYSICIAN: Dr. Wong. REASON FOR CONSULTATION: Debilitation, secondary to pneumonia and sepsis. HISTORY: A 77-year-old female who is admitted to the hospital because of sepsis and pneumonia, was having intermittent dysarthria usually when associated with fever spikes. Patient was seen by Dr. Suni Mark, underwent workup, was not found to have a neurologic source of her dysarthria, mainly it occurred when she was having fevers or feeling ill. Patient has become debilitated and I am being asked to evaluate for rehab needs. PAST MEDICAL HISTORY: Includes hypertension, hyperlipidemia, coronary artery disease, AFib, left breast cancer. PAST SURGICAL HISTORY: Include left mastectomy, CABG, pacemaker placement, bladder suspension, hysterectomy, bilateral oophorectomy with appendectomy, breast implants, removal of the implants, and knee arthroscopy. SOCIAL HISTORY: Lives with her spouse in a 2-shelbie home, bedroom is upstairs. She use a cane to get up and down. Prior to admission, she was a community ambulator, able to walk around to the stores and just needed some time to go slowly. ALLERGIES: NO KNOWN DRUG ALLERGIES. FAMILY HISTORY: Essentially mother and father of MIs at age 46. Mother had breast cancer. REVIEW OF SYSTEMS GENERAL: Weakness, failure to thrive. HEENT: No visual problems. PULMONARY: Easy fatigability. CARDIAC: No angina. GI: Poor appetite. HEMATOLOGY: No easy bruising. MUSCULOSKELETAL: She has had chronic back pain. LABORATORY DATA: White cell count of 9.4, hemoglobin 10.1, hematocrit 32.8, platelets of 249. Sodium is 139, potassium 4.4, BUN of 17, creatinine 1.07. She had a brain CT, which showed no acute intracranial findings. PHYSICAL EXAMINATION GENERAL: Patient is awake and alert, oriented x3, sitting up, eating, in no apparent distress. EYES: Gaze conjugate. Oral tongue is midline. NECK: Supple. HEART: Regular. LUNGS: Diminished breath sounds. ABDOMEN: Nontender, nondistended. EXTREMITIES: Functional range of motion in arms as well as legs. Sensory cruz, she has diminished sensation to the feet and lower legs. Manual muscle testing demonstrates essentially 4-/5 strength in the upper extremities and lower extremities bilaterally. Clonus is negative bilaterally. No increased tone on passive range of motion of arms or legs. She does use a cane to ambulate and I reviewed the therapy notes, which shows that patient indeed needs some assistance to gait. IMPRESSION 1. Debility secondary to sepsis. 2. Peripheral polyneuropathy. 3. History of breast cancer. 4. Dysarthria, mainly when she is associated with fevers and chills. PLAN: She looks good right now, but I think she could benefit from a multidisciplinary inpatient rehab program in order to try to optimize her functional level. We will work on insurance approval for transfer to rehab. Thank you once again for allowing me to participate in the care of this pleasant, but unfortunate patient. WILLIAM HERNANDEZ DO Job#: [id number] PKLuis
--- NOTE | 2018-02-14 13:32 | Diagnostic Imaging Report ---
EXAM: XR CHEST 2 VIEWS DATE: 02/14/2018 11:54 AM INDICATION: Pneumonia COMPARISON: 02/13/2018, no report available FINDINGS: Lines and Tubes: None Heart and Mediastinum: Sternotomy wires, left chest wall pacemaker, aortic calcification stable. Lungs and Pleura: Mild scattered airspace opacities, improved. Bones and Soft Tissues: No acute findings. IMPRESSION: 1. Improved edema. Signed by: Dr. Micha Jimenez MD on 02/14/2018 1:29 PM
[2018-02-14] MEDS: WARFARIN SOD 5 MG TAB PO SCH (17:07)
[2018-02-14] MEDS: HYDROCODONE/APAP 10MG-325MG TAB PO PRN (19:21)
[2018-02-14] MEDS: NORTRIPTYLINE HCL 25 MG CAP PO SCH (21:16)
[2018-02-14] MEDS: TEMAZEPAM 15 MG CAP PO PRN (21:30)
[2018-02-15] VITALS (8 sets, daily range): BP systolic 104–139; BP diastolic 51–63
[2018-02-15] MEDS ORDERED: TEMAZEPAM 15 MG CAP PO PRN (00:30)
[2018-02-15] MEDS: HYDROCODONE/APAP 10MG-325MG TAB PO PRN (03:08)
[2018-02-15] MEDS: FUROSEMIDE 40 MG TAB PO SCH ×2 (06:01→17:01)
[2018-02-15 06:15] LABS: INR 1.62; PROTHROMBIN TIME 20.6 seconds (11.9-14.5)
[2018-02-15 06:16] LABS: CALCIUM 10.5 mg/dL (8.4-10.2); CREATININE, SERUM 1.28 mg/dL (0.57-1.11)
[2018-02-15] MEDS: LOSARTAN POTASSIUM 100 MG TAB PO SCH (09:00)
[2018-02-15] MEDS: VITAMIN B-COMPLEX PO SCH (09:00)
[2018-02-15] MEDS: SPIRONOLACTONE 25 MG TAB PO SCH (09:00)
[2018-02-15] MEDS: HYDRALAZINE HCL 25 MG TAB PO SCH ×3 (09:00→21:05)
[2018-02-15] MEDS: VALACYCLOVIR HCL 500 MG TAB PO SCH ×2 (09:01→17:01)
[2018-02-15] MEDS: PRAMIPEXOLE DIHYDROCHLORIDE 1 MG TAB PO SCH ×2 (09:01→17:01)
[2018-02-15] MEDS: OMEGA 3 POLYUNSAT FATTY ACIDS 1000 MG SOFTGEL PO SCH (09:01)
[2018-02-15] MEDS: METOPROLOL TARTRATE 25 MG TAB PO SCH ×2 (09:01→17:01)
--- NOTE | 2018-02-15 12:12 | Consultation ---
DATE OF CONSULTATION: February 07, 2018 CONSULT TO: Dr. Harjit Wong. HISTORY OF PRESENT ILLNESS: Marcella Kay is a 77-year-old female who is very well known to me, referred to me for evaluation of anemia. No history of hematochezia, melena, hematuria, hematemesis, or hemoptysis. HISTORY OF PAST ILLNESSES: History of cancer of the breast, history of AV node ablation, history of pacemaker insertion, history of CABP, history of hypertension, history of diabetes, history of peripheral neuropathy, history of bronchopneumonia. SOCIAL HISTORY: Noncontributory. FAMILY HISTORY: Noncontributory. ALLERGIES: REPORTED NONE. MEDICATIONS: At this time, please review the EMAR. REVIEW OF SYSTEMS HEENT: Normal. CARDIAC: Hypertension, AV node ablation, pacemaker, CABP. RESPIRATORY: Bronchopneumonia at this time. GI: Normal. : Normal. MUSCULOSKELETAL: History of severe peripheral neuropathy, which was treated by neurologist with steroids. NEUROENDOCRINE: History of diabetes mellitus. PHYSICAL EXAMINATION GENERAL: A moderately built female, anemic. NECK: No palpable adenopathy. HEART: Within normal limits. LUNGS: Few crepitations. ABDOMEN: Soft. RECTAL AND VAGINAL: Deferred. CENTRAL NERVOUS SYSTEM: Essentially normal. EXTREMITIES: Essentially normal. BREASTS: The patient does have the breast surgery scar. LABORATORY DATA: Lab shows a sodium of 139, potassium 4.0, chloride 76, CO2 of 20, BUN 39, creatinine 1.23, blood sugar 111. Hemoglobin of 9.8, hematocrit 31.8, white count 11,200, and platelets 180,000. INR low at 1.34. SGOT high at 352, SGPT high at 279, alkaline phosphatase 97, and bilirubin 1.9. IMPRESSION 1. History of breast cancer. 2. Status post atrioventricular node fibrillation. 3. Status post pacemaker insertion. 4. Community-acquired bacterial pneumonia in 2017. 5. History of hypertension. 6. History of diabetes mellitus, [id number]. 7. History of peripheral neuropathy. 8. Bronchopneumonia. 9. Leukocytosis. 10. Anemia of chronic disease. 11. Pleural effusion by chest x-ray. 12. Cavitating nodule, left lower lobe by CAT scan. 13. High liver function test, nonfunctioning gallbladder. PLAN, COMMENTS, AND SUGGESTIONS: Continue aggressive antibiotic therapy. I will confine myself to hematology. I will adjust the Coumadin. The patient has been on multivitamin. I will take her off multivitamin. Job#: [id number] PKU cc:JAIRO CHILDRESS MD
[2018-02-15] MEDS: DICLOFENAC SOD 1% GEL 100 GM TUBE TP SCH ×3 (17:00→21:03)
[2018-02-15] MEDS: WARFARIN SOD 5 MG TAB PO SCH (17:01)
[2018-02-15] MEDS ORDERED: BISACODYL 5 MG TAB EC PO PRN (18:45)
[2018-02-15] MEDS: BISACODYL 5 MG TAB EC PO PRN (20:40)
[2018-02-15] MEDS: NORTRIPTYLINE HCL 25 MG CAP PO SCH (21:03)
[2018-02-16] VITALS: BP 112/53
[2018-02-16 04:00] VITALS: BP 113/53
[2018-02-16] MEDS: FUROSEMIDE 40 MG TAB PO SCH ×2 (05:45→17:17)
[2018-02-16 07:43] VITALS: BP 111/56
[2018-02-16] MEDS: VITAMIN B-COMPLEX PO SCH (09:00)
[2018-02-16] MEDS: SPIRONOLACTONE 25 MG TAB PO SCH (09:07)
[2018-02-16] MEDS: OMEGA 3 POLYUNSAT FATTY ACIDS 1000 MG SOFTGEL PO SCH (09:08)
[2018-02-16] MEDS: LOSARTAN POTASSIUM 100 MG TAB PO SCH (09:08)
[2018-02-16] MEDS: METOPROLOL TARTRATE 25 MG TAB PO SCH ×2 (09:08→17:17)
[2018-02-16] MEDS: VALACYCLOVIR HCL 500 MG TAB PO SCH ×2 (09:08→17:17)
[2018-02-16] MEDS: HYDRALAZINE HCL 25 MG TAB PO SCH ×3 (09:08→21:03)
[2018-02-16] MEDS: DICLOFENAC SOD 1% GEL 100 GM TUBE TP SCH ×4 (09:08→21:03)
[2018-02-16] MEDS: PRAMIPEXOLE DIHYDROCHLORIDE 1 MG TAB PO SCH ×2 (09:08→17:17)
[2018-02-16 09:42] LABS: INR 1.61; PROTHROMBIN TIME 20.5 seconds (11.9-14.5)
[2018-02-16 11:54] VITALS: BP 116/56
[2018-02-16 15:52] VITALS: BP 125/60
[2018-02-16] MEDS: WARFARIN SOD 5 MG TAB PO SCH (17:17)
[2018-02-16] MEDS: HYDROCODONE/APAP 10MG-325MG TAB PO PRN (19:35)
[2018-02-16 20:00] VITALS: BP 129/61
[2018-02-16] MEDS: NORTRIPTYLINE HCL 25 MG CAP PO SCH (21:03)
[2018-02-17] VITALS (7 sets, daily range): BP systolic 106–129; BP diastolic 52–59
[2018-02-17] MEDS: FUROSEMIDE 40 MG TAB PO SCH ×2 (05:34→17:09)
[2018-02-17 06:05] LABS: INR 1.63; PROTHROMBIN TIME 20.7 seconds (11.9-14.5)
[2018-02-17] MEDS: VALACYCLOVIR HCL 500 MG TAB PO SCH ×2 (08:52→16:25)
[2018-02-17] MEDS: HYDRALAZINE HCL 25 MG TAB PO SCH ×3 (08:52→21:28)
[2018-02-17] MEDS: DICLOFENAC SOD 1% GEL 100 GM TUBE TP SCH ×4 (08:52→21:28)
[2018-02-17] MEDS: METOPROLOL TARTRATE 25 MG TAB PO SCH ×2 (08:52→16:25)
[2018-02-17] MEDS: PRAMIPEXOLE DIHYDROCHLORIDE 1 MG TAB PO SCH ×2 (08:52→16:25)
[2018-02-17] MEDS: LOSARTAN POTASSIUM 100 MG TAB PO SCH (08:52)
[2018-02-17] MEDS: SPIRONOLACTONE 25 MG TAB PO SCH (08:52)
[2018-02-17] MEDS: OMEGA 3 POLYUNSAT FATTY ACIDS 1000 MG SOFTGEL PO SCH (08:52)
[2018-02-17] MEDS: VITAMIN B-COMPLEX PO SCH (09:00)
[2018-02-17] MEDS: BISACODYL 5 MG TAB EC PO PRN (11:10)
[2018-02-17] MEDS: WARFARIN SOD 5 MG TAB PO SCH (16:25)
[2018-02-17] MEDS ORDERED: WARFARIN SOD 2.5 MG TAB PO NR (18:00)
[2018-02-17] MEDS: NORTRIPTYLINE HCL 25 MG CAP PO SCH (21:28)
[2018-02-18] VITALS: BP 155/68
[2018-02-18] MEDS: HYDROCODONE/APAP 10MG-325MG TAB PO PRN (02:10)
[2018-02-18] MEDS: BISACODYL 5 MG TAB EC PO PRN (02:10)
[2018-02-18 04:00] VITALS: BP 130/58
[2018-02-18 05:27] LABS: INR 1.79; PROTHROMBIN TIME 22.2 seconds (11.9-14.5)
[2018-02-18] MEDS: FUROSEMIDE 40 MG TAB PO SCH (05:53)
[2018-02-18 06:33] LABS: ALBUMIN 3.1 g/dL (3.5-5.0); ALBUMIN/GLOBULIN RATIO 0.7 (0.8-2.0); ANION GAP 15.7 mmol/L (8-16); CREATININE, SERUM 1.51 mg/dL (0.57-1.11); POTASSIUM 3.7 mmol/L (3.5-5.1)
[2018-02-18 08:00] VITALS: BP 134/60
[2018-02-18] MEDS: VITAMIN B-COMPLEX PO SCH (09:00)
[2018-02-18 09:10] VITALS: BP 134/60
[2018-02-18] MEDS: SPIRONOLACTONE 25 MG TAB PO SCH (09:40)
[2018-02-18] MEDS: HYDRALAZINE HCL 25 MG TAB PO SCH (09:40)
[2018-02-18] MEDS: METOPROLOL TARTRATE 25 MG TAB PO SCH (09:41)
[2018-02-18] MEDS: OMEGA 3 POLYUNSAT FATTY ACIDS 1000 MG SOFTGEL PO SCH (09:41)
[2018-02-18] MEDS: DICLOFENAC SOD 1% GEL 100 GM TUBE TP SCH ×2 (09:41→13:58)
[2018-02-18] MEDS: LOSARTAN POTASSIUM 100 MG TAB PO SCH (09:41)
[2018-02-18] MEDS: PRAMIPEXOLE DIHYDROCHLORIDE 1 MG TAB PO SCH (09:41)
[2018-02-18] MEDS: VALACYCLOVIR HCL 500 MG TAB PO SCH (09:41)
[2018-02-18] MEDS ORDERED: DIPHENHYDRAMINE HCL INJ 25 MG in SODIUM CHLORIDE 0.9% 50ML 50 ML IV ONE ×2 (09:45→10:15)
[2018-02-18] MEDS ORDERED: IRON DEXTRAN INJ 500 MG in SODIUM CHLORIDE 0.9% 500ML 500 ML IV PRN (09:45)
[2018-02-18] MEDS ORDERED: WARFARIN SOD 5 MG TAB PO ONE (09:45)
[2018-02-18] MEDS ORDERED: IRON DEXTRAN INJ 50 MG in SODIUM CHLORIDE 0.9% 100 ML IV ONE (09:45)
[2018-02-18] MEDS ORDERED: FAMOTIDINE INJ 20 MG in SODIUM CHLORIDE 0.9% 50ML 50 ML IV ONE ×2 (09:45→10:15)
[2018-02-18] MEDS ORDERED: DEXAMETHASONE PHOS 10MG INJ 20 MG in SODIUM CHLORIDE 0.9% 50ML 50 ML IV ONE (09:45)
[2018-02-18 09:54] LABS: BASOPHILS # (AUTO) 0.1 (0.0-0.1); BASOPHILS % 0.9 % (0.0-1.0); EOSINOPHILS # (AUTO) 0.3 (0.0-0.4); EOSINOPHILS % 2.9 % (0.0-6.0); HEMATOCRIT 33.5 % (34.2-44.1); HEMOGLOBIN 10.4 g/dL (12.0-16.0); LYMPHOCYTES # (AUTO) 2.2 (1.0-3.2); MEAN CORPUSCULAR HEMOGLOBIN 25.9 pg (28-32); MEAN CORPUSCULAR VOLUME 83.3 fL (81-99); MONOCYTES # (AUTO) 1.3 (0.2-0.8); MONOCYTES % 14.2 % (4.4-11.3); NEUTROPHILS % 56.7 % (38.7-80.0); PLATELET COUNT 208 x10e3/uL (140-360); RED BLOOD COUNT 4.02 x10e6/uL (3.6-5.1); RED CELL DISTRIBUTION WIDTH 15.2 % (11.7-14.4)
[2018-02-18] MEDS ORDERED: SODIUM CHLORIDE 0.9% 50ML 50 ML ONE (11:59)
[2018-02-18 12:00] VITALS: BP 118/55
[2018-02-18] MEDS ORDERED: PNEUMOCOCCAL VACCINE POLYVALENT 23 MCG/0.5 ML VIAL IM ONE (13:00)
[2018-02-18] MEDS ORDERED: INFLUENZA VIRUS VAC SPLIT INJ 0.5 ML SYR IM ONE (13:00)
[2018-02-18 16:00] VITALS: BP 127/58
[2018-02-18] MEDS ORDERED: WARFARIN SOD 5 MG TAB PO SCH (17:00)
== END 2018-02-18 16:20 | disposition home health service (06) | DRG 871 ==
LOC: ER 09:42 → ERHOLD 11:45 → ICU 17:54 → MED/SURG3 02-06 10:22
PROVIDERS: ADMIT Internal Medicine; ATTEND Internal Medicine
PROC: 3E02340 Introduction of Influenza Vaccine into Muscle, Percutaneous Approach (ICD-10-PCS; principal; 2018-02-18)
PROC: 3E0234Z Introduction of Serum, Toxoid and Vaccine into Muscle, Percutaneous Approach (ICD-10-PCS; 2018-02-18)
DX: A41.9 Sepsis, unspecified organism (principal); J18.9 Pneumonia, unspecified organism; I50.33 Acute on chronic diastolic (congestive) heart failure; J96.01 Acute respiratory failure with hypoxia; N17.9 Acute kidney failure, unspecified; I13.0 Hypertensive heart and chronic kidney disease with heart failure and stage 1 through stage 4 chronic kidney disease, or unspecified chronic kidney disease; B17.9 Acute viral hepatitis, unspecified; E87.2 Acidosis; I48.2 Chronic atrial fibrillation; E11.22 Type 2 diabetes mellitus with diabetic chronic kidney disease; N18.3 Chronic kidney disease, stage 3 (moderate); I25.10 Atherosclerotic heart disease of native coronary artery without angina pectoris; E87.6 Hypokalemia; E11.42 Type 2 diabetes mellitus with diabetic polyneuropathy; E78.5 Hyperlipidemia, unspecified; R53.81 Other malaise; R47.1 Dysarthria and anarthria; R62.7 Adult failure to thrive; D63.8 Anemia in other chronic diseases classified elsewhere; R26.9 Unspecified abnormalities of gait and mobility; T36.95XA Adverse effect of unspecified systemic antibiotic, initial encounter; G89.29 Other chronic pain; K81.1 Chronic cholecystitis; Z95.1 Presence of aortocoronary bypass graft; Z85.3 Personal history of malignant neoplasm of breast; Z23 Encounter for immunization; Z79.01 Long term (current) use of anticoagulants; Z79.84 Long term (current) use of oral hypoglycemic drugs; Z88.8 Allergy status to other drugs, medicaments and biological substances; Z87.891 Personal history of nicotine dependence; Z95.0 Presence of cardiac pacemaker
CPT/HCPCS: 36415; 36600; 70450; 71045; 71046; 71260; 76700; 78227; 80048; 80053; 80061; 80202; 81001; 82150; 82550; 82553; 82805; 83605; 83690; 83735; 83880; 84443; 84484; 85025; 85610; 86644; 86645; 87040; 87086; 87400; 90732; 93005; 93306; 96376; 97139; 99285; A9537; J0456; J1100; J1200; J1650; J1750; J1940; J2405; J2543; J3370; J3480; J7030; J7040; J7050; Q9967

== ENCOUNTER → 2018-07-06 | Outpatient (CLI) | payer MEDICARE ==
[~2018-07-06] MED LIST changes: +BACLOFEN10 MG PO; +DICLOFENAC TOP; +FUROSEMIDE40 MG PO; +METFORMIN HCL500 MG PO; +METOLAZONE5 MG PO; +MEXILETINE HCL150 MG PO; +POTASSIUM CHLO20 ME1 PO
--- NOTE | 2018-07-06 18:13 | Diagnostic Imaging Report ---
EXAM: CHEST 2 VIEWS, PA and lateral DATE: 07/06/2018 Time stamp on exam: 3:19 PM INDICATION: COPD with shortness of breath COMPARISON: 02/13/2018 FINDINGS: LINES/TUBES: Sternotomy sutures and dual lead left cardiac device again noted. LUNGS: No consolidations or edema. PLEURA: No effusions or pneumothorax. HEART AND MEDIASTINUM: Normal size and contour. BONES AND SOFT TISSUES: Degenerative changes of the spine. IMPRESSION: No acute thoracic abnormality. Signed by: Dr. Guy Ortiz DO on 07/06/2018 6:10 PM
== END ==
LOC: RAD 14:54
PROVIDERS: ATTEND Internal Medicine Pulmonary Disease
DX: J44.9 Chronic obstructive pulmonary disease, unspecified (principal)
CPT/HCPCS: 71046

== ENCOUNTER 2019-02-17 09:07 | Inpatient (IN) | payer MEDICARE ==
[~2019-02-17] VITALS: Ht 170.2 cm; Wt 85.4 kg
[2019-02-17] MEDS ORDERED: ALBUTEROL SULF 0.083% NEB SOLN 3 ML NEB NEB STA (09:10)
[2019-02-17] MEDS ORDERED: HYDRALAZINE HCL 20 MG/ML VIAL IV STA (09:24)
[2019-02-17 09:34] LABS: BASOPHILS # (AUTO) 0.1 (0.0-0.1); BASOPHILS % 0.4 % (0.0-1.0); EOSINOPHILS # (AUTO) 0.1 (0.0-0.4); EOSINOPHILS % 0.4 % (0.0-6.0); HEMATOCRIT 36.3 % (34.2-44.1); HEMOGLOBIN 11.6 g/dL (12.0-16.0); LYMPHOCYTES # (AUTO) 1.7 (1.0-3.2); LYMPHOCYTES % 11.3 % (18.0-39.1); MEAN CORPUSCULAR HEMOGLOBIN 28.6 pg (28-32); MEAN CORPUSCULAR VOLUME 89.6 fL (81-99); MONOCYTES # (AUTO) 1.8 (0.2-0.8); MONOCYTES % 11.9 % (4.4-11.3); NEUTROPHILS # (AUTO) 11.7 (2.1-6.9); NEUTROPHILS % 75.4 % (38.7-80.0); PLATELET COUNT 170 x10e3/uL (140-360); RED BLOOD COUNT 4.05 x10e6/uL (3.6-5.1); RED CELL DISTRIBUTION WIDTH 13.9 % (11.7-14.4)
[2019-02-17 09:56] LABS: ALBUMIN 3.7 g/dL (3.5-5.0); ANION GAP 15.8 mmol/L (8-16); CALCIUM 9.7 mg/dL (8.4-10.2); CREATININE, SERUM 0.91 mg/dL (0.57-1.11); POTASSIUM 3.8 mmol/L (3.5-5.1)
--- NOTE | 2019-02-17 09:59 | Diagnostic Imaging Report ---
EXAM: CHEST 2 VIEWS DATE: 02/17/2019 9:10 AM INDICATION: Weakness COMPARISON: FINDINGS: Left-sided pacing device with 2 transvenous leads identified in stable position. Postsurgical changes from median sternotomy again noted. The trachea is midline. There are mildly increased bibasilar opacities suggestive of atelectasis. There is no evidence for large focal consolidation, pneumothorax, or significant pleural effusion. The cardiomediastinal silhouette is stable in appearance. Degenerative changes noted of the visualized spine. No acute osseous abnormalities are identified. IMPRESSION: No acute cardiopulmonary process identified. Signed by: Dr. Jonathon Gresham MD on 02/17/2019 9:56 AM
[2019-02-17] MEDS ORDERED: HYDRALAZINE HCL 20 MG/ML VIAL IV PRN (10:00)
[2019-02-17] MEDS ORDERED: FUROSEMIDE INJ 10 MG/ML 4 ML VIAL IV ONE (10:15)
[2019-02-17 10:19] LABS: CREATINE KINASE MB 1.8 ng/mL (0-5.0)
[2019-02-17] MEDS ORDERED: DEXTROSE 50% SYRINGE 50 ML IV PRN (10:30)
[2019-02-17] MEDS ORDERED: ONDANSETRON HCL INJ 2MG/ML 2ML 2 MG/ML VIAL IV PRN (10:30)
[2019-02-17 10:37] LABS: CLARITY,URINE CLEAR (CLEAR); COLOR,URINE YELLOW (YELLOW)
[2019-02-17 10:38] LABS: BILIRUBIN,URINE NEGATIVE (NEGATIVE); KETONES,URINE NEGATIVE (NEGATIVE); LEUKOCYTE ESTERASE ,URINE NEGATIVE (NEGATIVE); NITRITE,URINE NEGATIVE (NEGATIVE); PROTEIN,URINE DIPSTICK 2+ (NEGATIVE); URINE UROBILINOGEN 0.2 mg/dL (0.2 - 1)
[2019-02-17] MEDS ORDERED: LEVOFLOXACIN 750MG/D5W 150ML 150 ML IV SCH (10:45)
[2019-02-17 11:09] LABS: BACTERIA,URINE FEW /HPF; EPITHELIAL CELLS,URINE FEW /LPF; WBC,URINE (MAN) 0-5 /HPF (0-5)
[2019-02-17 11:36] LABS: ABG HCO3 25 mmol/L (23-28); ABG PCO2 32 mmHg (41-51); ABG PH 7.45 (7.31-7.41); ABG PO2 62 mmHg (80-105)
--- NOTE | 2019-02-17 11:37 | Diagnostic Imaging Report ---
CT of the chest, PE protocol, with contrast. History: Chest pain, shortness of breath Comparison: 02/06/2018. Technique: Multidetector thin collimation CT scanning of the chest was performed from the level of the apices to the upper abdomen during the pulmonary arterial phase, after intravenous administration of contrast. Coronal and sagittal MIP reformations were obtained. RADIATION DOSE: Total DLP: 533.45 mGy*cm Dose modulation, iterative reconstruction, and/or weight based adjustment of the mA/kV was utilized to reduce the radiation dose to as low as reasonably achievable. FINDINGS: There is adequate opacification of the pulmonary arteries to the level of the segmental arteries. The main pulmonary artery measures 3.1 cm in maximal diameter. The pulmonary arteries distribute normally without evidence of a filling defect to the level of the segmental arteries to suggest pulmonary thrombi embolism. Left-sided pacing device identified with 2 transvenous leads extending to the right atrium and ventricle. Watchman device identified within the left atrial appendage. The thoracic aorta is normal course and caliber with atherosclerotic calcifications. The heart is enlarged, similar to the prior examination. No abnormal pericardial fluid is present. There is no abnormal axillary, mediastinal, or hilar lymph node enlargement. The trachea and proximal airways are patent. There are trace bilateral pleural effusions with associated bibasilar atelectasis. Patchy groundglass opacities are identified bilaterally, more prominent within the upper lung zones. There is no evidence for consolidation or pneumothorax. The previously identified cavitary nodule within the left lower lobe now appears as a simple parenchymal cyst. A subcentimeter hypodensity is identified within the liver which is too small to definitively characterize but appears stable from the prior examination. The remaining visualized upper abdominal contents are unremarkable. Postsurgical changes from prior median sternotomy noted. The osseous structures demonstrate no evidence for acute fracture or destructive process. There is stable asymmetry of the petrous musculature, unchanged prior examinations. The remaining extrathoracic soft tissues are unremarkable. IMPRESSION: 1. No evidence of pulmonary thromboembolism the level of the segmental arteries. 2. Patchy groundglass opacities identified within the lungs which is nonspecific but can be seen in the setting of edema. An atypical infectious process could have a similar appearance. 3. Trace bilateral pleural effusions. 4. Stable cardiomegaly. Signed by: Dr. Jonathon Gresham MD on 02/17/2019 11:34 AM
[2019-02-17] MEDS: INSULIN REGULAR, HUMAN 100 UNIT/1 ML 3ML VIAL SQ SCH ×3 (13:21→20:25)
[2019-02-17] MEDS ORDERED: SODIUM CHLORIDE 0.9% 50ML 50 ML ONE (15:59)
[2019-02-17] MEDS ORDERED: IOPAMIDOL 370 MG/ML 200 ML INFUS..BTL INJ ONE (15:59)
[2019-02-17 16:30] VITALS: BP 122/46
--- NOTE | 2019-02-17 16:30 | NUR ---
Pt received from ER via stretcher. Alert and oriented x4. Pt with Oxygen at 4L. Oriented to staff and surroundings. Encouraged to press call abdullahi if help needed. Pt verbalized understanding of teaching. Emotional support given. Call abdullahi within reach. Will monitor
[2019-02-17] MEDS: APIXABAN 5 MG TABLET PO SCH (17:44)
--- NOTE | 2019-02-17 18:23 | NUR ---
Wound culture done. Meds given as ordered. Emotional support given. Will endorse to next shift
--- NOTE | 2019-02-17 19:00 | NUR ---
Received patient from day nurse, patient is alert and oriented x3. patient is currently on 2l nc. safety and fall precautions mantained as per hospital protocol: bed in lowest position and locked, needed items beside bed, call abdullahi placed close to patient, patient is currently stable will continue to monitor.
[2019-02-17 19:15] VITALS: BP 144/62
--- NOTE | 2019-02-17 19:15 | NUR ---
Wound culture done and sent to lab : left leg and right leg.
--- NOTE | 2019-02-17 19:34 | NUR ---
Pt with open wound to both lower legs. More to the left. Blanchable redness to sacrum noted. Will order wound care consult
[2019-02-17] MEDS: NORTRIPTYLINE HCL 25 MG CAP PO SCH (20:34)
[2019-02-17] MEDS: FUROSEMIDE INJ 10 MG/ML 4 ML VIAL IV SCH (20:34)
[2019-02-17] MEDS: IPRATROPIUM BROMIDE 0.02% 2.5 ML NEB NEB SCH (20:45)
--- NOTE | 2019-02-17 21:00 | NUR ---
patient received lasix and was made aware of the importance of purewick and patient agreed to have it, female nurse was called to place in the purewick.
[2019-02-17] MEDS: SILVER SULFADIAZINE 50GM CREAM TOP SCH (22:16)
[2019-02-18] VITALS: BP 140/72
[2019-02-18] MEDS: MORPHINE SULFATE INJ 4 MG/ML INJ 1ML IV PRN
[2019-02-18] MEDS: IPRATROPIUM BROMIDE 0.02% 2.5 ML NEB NEB SCH ×4 (00:45→20:00)
--- NOTE | 2019-02-18 02:15 | Consultation ---
DATE OF CONSULTATION: 02/17/2019 Cardiac Consultation REASON FOR THE CONSULTATION: Not feeling well. HISTORY OF PRESENT ILLNESS: An unfortunate 78 years old lady, who is now with longstanding history of hypertension, hypercholesteremia, coronary artery disease status post coronary artery bypass surgery in August 2016 for GONZÁLES to LAD and saphenous vein graft to OM. The patient is known with longstanding history of atrial fibrillation status post pacemaker implantation and AV kala ablation with subsequent pacemaker. Generator change. The patient's problem started last year with severe shortness of breath. She was managed medically. She had workup, which showed preserved left ventricular systolic function. Her CT scan showed ground-glass appearance. She was seen by Pulmonary. Subsequently, her main symptoms were shortness of breath. Subsequently, she developed severe peripheral neuropathy. She had some steroids and after that she had major lung infection and severe peripheral neuropathy. She was almost crippled and she was critically ill and she was almost not to make it. After prolonged hospitalization and care, the patient started recuperating and slowly started improving. She is followed by Dr. De La Rosa. She is having tendency to fall high risk for bleed despite aggressive arrangement of her anticoagulation. This was not successful. In fact, she needs to have frequent INR checked and it was very difficult to manage and her INR more than once at 1.1. Another problem is the patient does have chronic swelling of the lower extremities and evidence of skin scaling changes and cellulitis of the lower extremities. She is on chronic treatment with sulfadiazine. She does have very abnormal gait. Because of her high Micha vascular score as well as difficult to anticoagulation, tendency to fall, old illnesses, and tendency to bleed, we were consulted and she had successful placement on Watchman device on 02/15/2019. She was doing well. She was dismissed home. We elected to start her on Xarelto since patients with Coumadin will have problem and her INR in fact was either very high or very low. The patient yesterday at home, She took Xarelto 20 mg 1 hour after she started having shortness of breath, headache, and slowly she deteriorated. She was having very high blood pressures, fever, failure to thrive. She is seen her in the emergency room. Her BNP was 419. Her CT scan showed appropriate Watchman device in place, ground haziness in her chest. Her BNP was mildly elevated at 419. She was given antibiotics, breathing treatment, and Lasix with improvement of her condition, admitted for further management. PAST MEDICAL HISTORY: 1. Hypertension. 2. Severe peripheral neuropathy. 3. chronic cellulitis and swelling of the lower extremities and scaling of the skin. 4. Hypercholesterolemia. 5. Bypass surgery. 6. Atrial fibrillation, status post AV kala ablation and pacemaker generator change. 7. Bilateral mastectomy in 1982. 8. Bladder suspension surgery and oophorectomy in 1992. 9. Hysterectomy. 10. Back surgery. 11. Generator change of pacemaker in May 2018. 12. Tendency to fall. 13. Chronic swelling of the lower extremities, chronic cellulitis, and sipping of fluid from the lower extremities, mainly at the ankle and feet level and part of the foreleg. SOCIAL HISTORY: She is retired. She is nonsmoker and non-alcohol drinker. She is . FAMILY HISTORY: Mother at age 46 from heart attack and breast cancer. Father at age 86. He had bypass surgery and carotid endarterectomy. Several sisters with breast surgery and breast cancer. ALLERGIES: CLONIDINE, NORVASC, TOPROL, MOTRIN. HOME MEDICATIONS: 1. Xarelto 20 mg a day. 2. Lasix 40 mg twice a day. 3. Potassium chloride 20 mEq t.i.d. 4. Zaroxolyn 2.5 mg Friday, Friday, Friday. 5. Nortriptyline 50 mg a day. REVIEW OF SYSTEMS: GENERAL: Not feeling well, possible fever and chills. HEENT: Congestion. PULMONARY AND CARDIAC: As per history. GI: No hematemesis. No melena. HEMATOLOGY: Easy bruising and bleeding. INFECTIOUS DISEASE: Chronic changes in the lower extremities, both feet. ENDOCRINE: No diabetes. NEUROLOGIC: Tendency to fall, instability, headaches. PHYSICAL EXAMINATION: VITAL SIGNS: Height of 5 feet 7 inches, weight of 188 pounds, blood pressure 120/50, heart rate of 80, respiratory rate of 18, and temperature of 98 Fahrenheit HEENT: Pupils are reactive. NECK: No elevation of jugular venous pulsation. CHEST: Pacemaker in place. Decreased lung entry with crackles. HEART: PMI 5th left intercostal space. Normal first and second heart sounds. ABDOMEN: Soft. EXTREMITIES: Chronic skin changes of both legs just above the ankle to the feet with chronic scaling and drainage, which seems to be serous drainage and evidence of scratch cee. NEUROLOGIC: Awake, alert, oriented. Neck is supple. Gait was not examined. LABORATORY DATA: ABG showed pH of 7.45, pCO2 of 32, PO2 of 62. BNP of 419. Chest x-ray, CT scan as per report, BUN of 19, creatinine of 0.9. White blood cell count of 15.4, hemoglobin of 11.6, hematocrit 36%, and platelet count of 170,000. IMPRESSION AND PLAN: 1. Illness, characterized by shortness of breath, not feeling well, fevers and chills. Differential diagnosis is wide. We would recommend blood cultures, diuretics, bracing treatment, and continuation of home medication. We would recommend repeating lab in the morning. Continuation of anticoagulation, but we are going to change it to Eliquis because as per the patient and her , everything started after taking the Xarelto, so possible also allergic component. In summary, her problem can be summarized as follows. 1. Shortness of breath, multifactorial in a patient with chronic lung disease of many years' duration, chronic opacity in the lungs, possible there is element of volume overload, possible there is element of allergic reaction. The patient on diuretics, which basically we are going to resume. 2. Chronic lung disease, questionable etiology. 3. Chronic diastolic heart failure. 4. Chronic atrial fibrillation, status post Watchman device and AV kala ablation and pacemaker. 5. Hypertension. 6. Coronary artery disease, status post coronary artery bypass surgery. 7. Possible cellulitis of both feet, mainly the right leg. 8. Gait instability. Pending on her course and further investigation and further steps to be done. MD DELMER Bryson/CLAYL /[id number]
--- NOTE | 2019-02-18 02:30 | Consultation ---
DATE OF CONSULTATION: Pulmonary Consultation Patient of Dr. Tyler, Dr. Holman, and Dr. De La Rosa. 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 She underwent Watchman procedure on 02/16 without incident and became short of breath, had chills, fever, and headaches. She has a history of sick sinus syndrome with pacemaker, history of remote breast cancer treated surgically. ALLERGIES: CODEINE, CALAN, AND ADVERSE REACTION TO PREDNISONE CAUSING MUSCLE WEAKNESS. MEDICATIONS: Her usual medications include Apresoline, clonidine, Lasix, , nortriptyline, and pramipexole for restless legs. According to record, she also takes baclofen, Lasix, Vicodin, FAMILY HISTORY: Positive for coronary artery disease. PHYSICAL EXAMINATION: GENERAL: Well-developed and well-nourished, white female, anxious, but not in distress. She does have a history of smoking, but quit 30 years ago, history of bypass surgery 2012. VITAL SIGNS: Temperature 98, pulse 24, and blood pressure . HEAD: Normocephalic and atraumatic. EYES: Extraocular movements intact. LUNGS: Bibasilar rales. HEART: Regular rhythm. ABDOMEN: Nontender. EXTREMITIES: Moderate edema with erythema, which apparently is chronic. IMPRESSION: Possible community-acquired pneumonia Thank you for this kind referral. MD FREDDY Patterson/MODL /[id number]
[2019-02-18 03:40] VITALS: BP 138/74
--- NOTE | 2019-02-18 04:00 | NUR ---
Another nurse assumed care of patient.
[2019-02-18 05:41] LABS: BASOPHILS # (AUTO) 0.1 (0.0-0.1); BASOPHILS % 0.3 % (0.0-1.0); HEMATOCRIT 34.9 % (34.2-44.1); HEMOGLOBIN 11.2 g/dL (12.0-16.0); LYMPHOCYTES # (AUTO) 2.1 (1.0-3.2); LYMPHOCYTES % 9.9 % (18.0-39.1); MEAN CORPUSCULAR HGB CONC 32.1 g/dL (31-35); MEAN CORPUSCULAR VOLUME 90.4 fL (81-99); MONOCYTES # (AUTO) 2.6 (0.2-0.8); MONOCYTES % 12.3 % (4.4-11.3); NEUTROPHILS % 76.8 % (38.7-80.0); PLATELET COUNT 186 x10e3/uL (140-360); RED BLOOD COUNT 3.86 x10e6/uL (3.6-5.1); RED CELL DISTRIBUTION WIDTH 14.4 % (11.7-14.4)
[2019-02-18 06:18] LABS: ALBUMIN 3.2 g/dL (3.5-5.0); ALBUMIN/GLOBULIN RATIO 0.8 (0.8-2.0); ANION GAP 16.8 mmol/L (8-16); CALCIUM 9.9 mg/dL (8.4-10.2); CHOL/HDL RATIO 3.6 (3.0-3.6); CREATININE, SERUM 1.03 mg/dL (0.57-1.11); POTASSIUM 3.8 mmol/L (3.5-5.1)
[2019-02-18 06:38] LABS: THYROID STIMULATING HORMONE 0.417 uIU/mL (0.350-4.940)
--- NOTE | 2019-02-18 07:00 | NUR ---
Pt received resting in recliner. Oriented to staff and surroundings. Call abdullahi within reach. Will monitor
[2019-02-18] MEDS: INSULIN REGULAR, HUMAN 100 UNIT/1 ML 3ML VIAL SQ SCH ×4 (07:30→20:15)
[2019-02-18 08:00] VITALS: BP 144/43
[2019-02-18] MEDS ORDERED: ACETAMINOPHEN 325 MG TAB PO PRN (08:30)
--- NOTE | 2019-02-18 08:30 | Diagnostic Imaging Report ---
Chest, 1 view, 02/18/2019. History: Shortness of breath. Comparison: 02/17/2019. Findings: The cardiomediastinal silhouette and pulmonary vasculature are mildly prominent with hazy bilateral perihilar opacities. There is no focal consolidation. There is minimal blunting of the costophrenic sulci bilaterally consistent with small effusions. Left subclavian dual-lead pacer and median sternotomy wires are again noted. There are no acute osseous or soft tissue abnormalities. Impression: Findings suggestive of mild CHF. Signed by: Larry Goel on 02/18/2019 8:27 AM
[2019-02-18] MEDS: CLONIDINE HCL 0.1 MG TAB PO SCH ×2 (08:49→16:42)
[2019-02-18] MEDS: PRAMIPEXOLE DIHYDROCHLORIDE 1 MG TAB PO SCH ×2 (08:49→16:52)
[2019-02-18] MEDS: MULTIVITAMINS/MINERALS TAB PO SCH (08:49)
[2019-02-18] MEDS: APIXABAN 5 MG TABLET PO SCH ×2 (08:49→16:52)
[2019-02-18] MEDS: POTASSIUM CHLORIDE 20 MEQ TAB CR PO SCH ×2 (08:49→16:52)
[2019-02-18] MEDS: FUROSEMIDE INJ 10 MG/ML 4 ML VIAL IV SCH ×2 (08:49→20:36)
[2019-02-18] MEDS: SILVER SULFADIAZINE 50GM CREAM TOP SCH (09:00)
[2019-02-18] MEDS: ACETAMINOPHEN 325 MG TAB PO PRN ×2 (09:10→16:20)
[2019-02-18] MEDS ORDERED: AZITHROMYCIN 250 MG TAB PO ONE (09:15)
[2019-02-18] MEDS: AZITHROMYCIN 250 MG TAB PO SCH (09:48)
[2019-02-18] MEDS: CEFTRIAXONE SOD 1 GM/NS 50 ML 50 ML IV SCH (09:48)
[2019-02-18] MEDS: MEXILETINE HCL 150 MG PO SCH ×2 (10:00→16:41)
[2019-02-18 11:30] VITALS: BP 104/54
[2019-02-18] MEDS ORDERED: CARBAMAZEPINE200 MG PO (12:34)
[2019-02-18] MEDS ORDERED: BALSAM PERU/CASTOR OIL 60 GM OINT...G. TP SCH (13:00)
[2019-02-18] MEDS: OMEGA 3 POLYUNSAT FATTY ACIDS 1000 MG SOFTGEL PO SCH (14:00)
[2019-02-18] MEDS: CLINDAMYCIN PHOS 900MG/ 50ML 50 ML IV SCH ×2 (14:00→22:53)
--- NOTE | 2019-02-18 14:15 | NUR ---
Cleocin started. Educted pt regarding side effects of medication. Pt verbalized understanding of teaching. Will monitor
--- NOTE | 2019-02-18 15:17 | NUR ---
WOUND CARE CONSULT FOR 78 YO FEMALE HX OF CHF,PNEAUMONIA, HYPOXIA , LOWER EXTREMITY EDEMA AND CELLULITIS LARA 20 ON CONSERVATIVE PUP STATUS AND ALTERNATING PRESSURE SURFACE LABS : WBC- 20.83,HGB- 11.2, GLUCOSE - 142 WOUND CULTURE PENDING RT LOWER LEG SKIN ASSESSMENT COMPLETE PATIENT PRESENTS WITH BILATERAL GENERALIZED LOWER LEG CELLULITIS WITH SOME PARTIAL THICKNESS OPENINGS RECOMMENDATIONS :NURSING TO CONTINUE TO MAINTAIN CONSERVATIVE PUP STATUS AND ALTERNATING PRESSURE SURFACE NURSING TO CONTINUE TO ASSIST PATIENT OUT OF BED FOR MEALS AND MUCH TOLERATED NURSING TO APPLY DAILY VENELEX OINTMENT TO BILATERAL LOWER LEG CELLULITIC AREA WRAP WITH KERLIX Addendum: 02/18/19 at 1539 by Jorge Johns RN Amended: Links added.
--- NOTE | 2019-02-18 16:04 | History and Physical ---
CHIEF COMPLAINT: Fever, chills, cough started on Friday. HISTORY OF PRESENT ILLNESS: The patient is an 78-year-old female, patient of started on Friday. The patient had a Watchman procedure on February 16 without any incident. Afterwards, the patient was stable. She was at home and subsequently developed some increased shortness of breath, chills, and subsequently developed a fever. The patient came to the hospital. The patient has history of sick sinus syndrome where she had a permanent pacemaker. She has also had atrial fibrillation previously, on anticoagulant therapy. The patient is otherwise stable at this time. PAST MEDICAL HISTORY: Atrial fibrillation, anticoagulant therapy, hypertension, severe peripheral neuropathy, chronic lower extremity venous skin changes, history of dyslipidemia. PAST SURGICAL HISTORY: Hysterectomy, low back surgery, coronary artery bypass graft surgery, Watchman procedure, urinary bladder suspension, bilateral mastectomy in 1982, hysterectomy with oophorectomy in 1992. SOCIAL HISTORY: The patient does not smoke or use alcohol. No regular drugs. ALLERGIES: TO CODEINE, XARELTO, AND VERAPAMIL. HOME MEDICATIONS: List is reviewed. REVIEW OF SYSTEMS: Cough, fever, increasing shortness of breath. PHYSICAL EXAMINATION: VITAL SIGNS: Temperature is 102.1, blood pressure 144/43, pulse rate is 70, respirations 18. GENERAL: The patient is not in acute distress. She is awake. HEENT: Normocephalic, atraumatic. Anicteric. NECK: Supple grossly. PULMONARY: Diminished breath sounds bilaterally with coarses. CARDIOVASCULAR: Atrial fibrillation, rate controlled. ABDOMEN: Soft, nondistention. EXTREMITIES: Venous stasis skin changes. NEUROLOGIC: No focal deficit. LABORATORY DATA: WBC is 20.8, hemoglobin 11.2, hematocrit 35, and platelets are 186. Chemistry, sodium is 135, potassium 3.8, chloride 95, bicarb 27, BUN is 19, creatinine 1.0, glucose is 132. BNP is 402. Troponin negative. Imaging test, CT of the chest showed bilateral infiltrate. IMPRESSION: 1. Bilateral pneumonia. 2. High fever secondary to the above. 3. Baseline coronary artery disease, atrial fibrillation, anticoagulant therapy with possible reaction to Xarelto. PLAN: Continue with IV antibiotics. Check the patient's lab work. Adjust the patient's home medication. Dr. Back has seen the patient same with Dr. Julieta Holman, her programmable logic controller assembler. We will monitor the patient closely at this time. MD JUAN Samano/GABO /[id number]
[2019-02-18] MEDS: BALSAM PERU/CASTOR OIL 5 GM OINT...G. TP SCH (16:40)
--- NOTE | 2019-02-18 19:09 | NUR ---
Handoff given to oncoming shift. Emotional support given
[2019-02-18 20:16] VITALS: BP 135/55
[2019-02-18 20:18] VITALS: BP 135/55
[2019-02-18] MEDS: NORTRIPTYLINE HCL 25 MG CAP PO SCH (20:36)
[2019-02-19] VITALS (9 sets, daily range): BP systolic 112–149; BP diastolic 40–86
[2019-02-19] MEDS: HYDROCODONE/APAP 10MG-325MG TAB PO PRN ×2 (00:08→14:20)
[2019-02-19] MEDS: IPRATROPIUM BROMIDE 0.02% 2.5 ML NEB NEB SCH ×4 (01:00→19:45)
[2019-02-19 05:33] LABS: BASOPHILS # (AUTO) 0.1 (0.0-0.1); BASOPHILS % 0.4 % (0.0-1.0); EOSINOPHILS # (AUTO) 0.2 (0.0-0.4); EOSINOPHILS % 1.4 % (0.0-6.0); HEMATOCRIT 28.6 % (34.2-44.1); HEMOGLOBIN 9.2 g/dL (12.0-16.0); LYMPHOCYTES # (AUTO) 1.4 (1.0-3.2); LYMPHOCYTES % 11.9 % (18.0-39.1); MEAN CORPUSCULAR HEMOGLOBIN 29.1 pg (28-32); MEAN CORPUSCULAR HGB CONC 32.2 g/dL (31-35); MEAN CORPUSCULAR VOLUME 90.5 fL (81-99); MONOCYTES # (AUTO) 1.6 (0.2-0.8); MONOCYTES % 13.2 % (4.4-11.3); NEUTROPHILS # (AUTO) 8.6 (2.1-6.9); NEUTROPHILS % 72.7 % (38.7-80.0); PLATELET COUNT 149 x10e3/uL (140-360); RED BLOOD COUNT 3.16 x10e6/uL (3.6-5.1); RED CELL DISTRIBUTION WIDTH 13.9 % (11.7-14.4)
[2019-02-19] MEDS: CLINDAMYCIN PHOS 900MG/ 50ML 50 ML IV SCH ×3 (05:33→21:30)
[2019-02-19] MEDS: ACETAMINOPHEN 325 MG TAB PO PRN (05:36)
--- NOTE | 2019-02-19 05:42 | NUR ---
patient is awake, sitting on the recliner, knitting, no distress noted this morning, will continue to monitor.
[2019-02-19 05:59] LABS: ANION GAP 13.6 mmol/L (8-16); CALCIUM 9.2 mg/dL (8.4-10.2); CREATININE, SERUM 0.99 mg/dL (0.57-1.11); POTASSIUM 3.6 mmol/L (3.5-5.1)
[2019-02-19] MEDS: INSULIN REGULAR, HUMAN 100 UNIT/1 ML 3ML VIAL SQ SCH ×4 (06:49→21:00)
[2019-02-19] MEDS: MEXILETINE HCL 150 MG PO SCH ×2 (09:00→15:39)
[2019-02-19] MEDS: FUROSEMIDE INJ 10 MG/ML 4 ML VIAL IV SCH ×2 (09:07→21:30)
[2019-02-19] MEDS: CEFTRIAXONE SOD 1 GM/NS 50 ML 50 ML IV SCH (09:07)
[2019-02-19] MEDS: APIXABAN 5 MG TABLET PO SCH ×2 (09:08→16:46)
[2019-02-19] MEDS: OMEGA 3 POLYUNSAT FATTY ACIDS 1000 MG SOFTGEL PO SCH (09:08)
[2019-02-19] MEDS: CLONIDINE HCL 0.1 MG TAB PO SCH ×2 (09:08→16:46)
[2019-02-19] MEDS: MULTIVITAMINS/MINERALS TAB PO SCH (09:08)
[2019-02-19] MEDS: AZITHROMYCIN 250 MG TAB PO SCH (09:08)
[2019-02-19] MEDS: PRAMIPEXOLE DIHYDROCHLORIDE 1 MG TAB PO SCH ×2 (09:08→16:46)
[2019-02-19] MEDS: POTASSIUM CHLORIDE 20 MEQ TAB CR PO SCH ×2 (09:09→16:46)
[2019-02-19] MEDS: BALSAM PERU/CASTOR OIL 5 GM OINT...G. TP SCH (12:20)
[2019-02-19 13:15] LABS: EOSINOPHILS % (MANUAL) 1 % (0-7); LYMPHOCYTES % (MANUAL) 12 % (19-48); MONOCYTES % (MANUAL) 6 % (3.4-9.0); NEUTROPHILS % (MANUAL) 81 % (40-74)
[2019-02-19 13:16] LABS: PLATELET ESTIMATE ADEQUATE; PLATELET MORPHOLOGY COMMENT NORMAL; RBC MORPHOLOGY COMMENT NORMAL
[2019-02-19] MEDS: NORTRIPTYLINE HCL 25 MG CAP PO SCH (21:30)
[2019-02-20] VITALS (9 sets, daily range): BP systolic 121–148; BP diastolic 52–74
[2019-02-20] MEDS: HYDROCODONE/APAP 10MG-325MG TAB PO PRN ×2 (00:35→15:32)
[2019-02-20] MEDS: IPRATROPIUM BROMIDE 0.02% 2.5 ML NEB NEB SCH ×4 (01:00→19:25)
[2019-02-20] MEDS: CLINDAMYCIN PHOS 900MG/ 50ML 50 ML IV SCH ×3 (06:30→21:50)
[2019-02-20] MEDS: INSULIN REGULAR, HUMAN 100 UNIT/1 ML 3ML VIAL SQ SCH ×4 (07:30→21:00)
[2019-02-20] MEDS: MEXILETINE HCL 150 MG PO SCH ×2 (09:00→16:27)
[2019-02-20] MEDS: AZITHROMYCIN 250 MG TAB PO SCH (09:33)
[2019-02-20] MEDS: MULTIVITAMINS/MINERALS TAB PO SCH (09:33)
[2019-02-20] MEDS: OMEGA 3 POLYUNSAT FATTY ACIDS 1000 MG SOFTGEL PO SCH (09:33)
[2019-02-20] MEDS: PRAMIPEXOLE DIHYDROCHLORIDE 1 MG TAB PO SCH ×2 (09:33→18:02)
[2019-02-20] MEDS: CLONIDINE HCL 0.1 MG TAB PO SCH ×2 (09:33→18:02)
[2019-02-20] MEDS: APIXABAN 5 MG TABLET PO SCH ×2 (09:33→18:02)
[2019-02-20] MEDS: POTASSIUM CHLORIDE 20 MEQ TAB CR PO SCH ×2 (09:33→18:02)
[2019-02-20] MEDS: FUROSEMIDE INJ 10 MG/ML 4 ML VIAL IV SCH ×3 (09:33→21:49)
[2019-02-20] MEDS: CEFTRIAXONE SOD 1 GM/NS 50 ML 50 ML IV SCH (09:33)
[2019-02-20] MEDS: BALSAM PERU/CASTOR OIL 5 GM OINT...G. TP SCH (09:34)
[2019-02-20] MEDS: ACETAMINOPHEN 325 MG TAB PO PRN (13:56)
--- NOTE | 2019-02-20 17:48 | NUR ---
PATIENT RECEIVED FROM [facility] BY WHEEL CHAIR. ALERT AND VERBALLY RESPONSIVE, DENIED PAIN AT THIS TIME. TELEMETRY B[address] OUT OF BED TO CHAIR WITH CALL LIGHT AT REACH.
--- NOTE | 2019-02-20 19:00 | NUR ---
RECEIVED REPORT FROM PREVIOUS NURSE. CALL LIGHT WITHIN REACH. PATIENT IN RECLINER.
[2019-02-20] MEDS: NORTRIPTYLINE HCL 25 MG CAP PO SCH (21:49)
[2019-02-20] MEDS ORDERED: SODIUM CHLORIDE 0.9% 250ML 250 ML ONE (22:10)
[2019-02-21] VITALS (7 sets, daily range): BP systolic 129–143; BP diastolic 58–67
[2019-02-21] MEDS: IPRATROPIUM BROMIDE 0.02% 2.5 ML NEB NEB SCH ×4 (00:45→19:45)
[2019-02-21] MEDS: HYDROCODONE/APAP 10MG-325MG TAB PO PRN ×2 (01:55→23:16)
[2019-02-21] MEDS: CLINDAMYCIN PHOS 900MG/ 50ML 50 ML IV SCH ×3 (06:27→21:38)
--- NOTE | 2019-02-21 07:05 | NUR ---
PATIENT SITTING UP IN BED RECEIVING NEB TREATMENT, NO DISTRESS NOTED. TELEMETRY BOX IN PLACE. BED IN LOWER POSITION, CALL LIGHT AT REACH.
[2019-02-21] MEDS: INSULIN REGULAR, HUMAN 100 UNIT/1 ML 3ML VIAL SQ SCH ×4 (07:30→20:18)
--- NOTE | 2019-02-21 07:30 | NUR ---
Gave report to oncoming nurse. Call light within reach. Patient in bed.
[2019-02-21 08:55] LABS: ANION GAP 13.7 mmol/L (8-16); BASOPHILS # (AUTO) 0.1 (0.0-0.1); BASOPHILS % 0.7 % (0.0-1.0); BLOOD UREA NITROGEN 19 mg/dL (7-26); BUN/CREATININE RATIO 22 (6-25); CALCIUM 9.6 mg/dL (8.4-10.2); CARBON DIOXIDE 27 mmol/L (22-29); CHLORIDE 100 mmol/L (98-107); CREATININE, SERUM 0.86 mg/dL (0.57-1.11); EOSINOPHILS # (AUTO) 0.3 (0.0-0.4); EOSINOPHILS % 4.7 % (0.0-6.0); EST GLOMERULAR FILTRATION RATE > 60 ML/MIN (60-); GLUCOSE 111 mg/dL (74-118); HEMATOCRIT 27.9 % (34.2-44.1); HEMOGLOBIN 8.8 g/dL (12.0-16.0); LYMPHOCYTES # (AUTO) 1.4 (1.0-3.2); LYMPHOCYTES % 20.3 % (18.0-39.1); MEAN CORPUSCULAR HEMOGLOBIN 28.7 pg (28-32); MEAN CORPUSCULAR HGB CONC 31.5 g/dL (31-35); MEAN CORPUSCULAR VOLUME 90.9 fL (81-99); MONOCYTES % 14.2 % (4.4-11.3); NEUTROPHILS % 59.5 % (38.7-80.0); PLATELET COUNT 181 x10e3/uL (140-360); POTASSIUM 3.7 mmol/L (3.5-5.1); RED BLOOD COUNT 3.07 x10e6/uL (3.6-5.1); RED CELL DISTRIBUTION WIDTH 13.6 % (11.7-14.4); SODIUM 137 mmol/L (136-145)
[2019-02-21] MEDS: MEXILETINE HCL 150 MG PO SCH ×2 (09:00→17:00)
[2019-02-21] MEDS: AZITHROMYCIN 250 MG TAB PO SCH (09:46)
[2019-02-21] MEDS: MULTIVITAMINS/MINERALS TAB PO SCH (09:46)
[2019-02-21] MEDS: CEFTRIAXONE SOD 1 GM/NS 50 ML 50 ML IV SCH (09:46)
[2019-02-21] MEDS: APIXABAN 5 MG TABLET PO SCH ×2 (09:46→17:33)
[2019-02-21] MEDS: PRAMIPEXOLE DIHYDROCHLORIDE 1 MG TAB PO SCH ×2 (09:46→17:33)
[2019-02-21] MEDS: OMEGA 3 POLYUNSAT FATTY ACIDS 1000 MG SOFTGEL PO SCH (09:46)
[2019-02-21] MEDS: FUROSEMIDE INJ 10 MG/ML 4 ML VIAL IV SCH ×2 (09:46→20:20)
[2019-02-21] MEDS: CLONIDINE HCL 0.1 MG TAB PO SCH ×2 (09:47→17:33)
[2019-02-21] MEDS: POTASSIUM CHLORIDE 20 MEQ TAB CR PO SCH ×2 (09:47→17:33)
[2019-02-21] MEDS: BALSAM PERU/CASTOR OIL 5 GM OINT...G. TP SCH (10:35)
--- NOTE | 2019-02-21 11:06 | NUR ---
TREATMENT DONE TO LOWER EXTREMITIES ORDERED. PATIENT OUT OF BED TO RECLINING CHAIR WATCHING TV. CALL LIGHT AT REACH.
[2019-02-21] MEDS: ACETAMINOPHEN 325 MG TAB PO PRN (14:30)
--- NOTE | 2019-02-21 15:18 | NUR ---
MD IN TO SEE PATIENT, ORDER RECEIVED TO D/C TELEMETRY.
--- NOTE | 2019-02-21 20:21 | NUR ---
CALL AND TALKED TO DR. REYNOLDS ABOUT PATIENT WANTING TO NOT HAVE LASIX AT NIGHT AND TO LET THE DR KNOW SHE IS NOT DIABETIC SO SHE DOES NOT WANT TO BE STUCK TO GET HER SUGAR. DR. REYNOLDS SAID TO WRITE PATIENT REFUSED FOR THE LASIX AND FINGERSTICK.
[2019-02-21] MEDS: NORTRIPTYLINE HCL 25 MG CAP PO SCH (21:38)
--- NOTE | 2019-02-21 23:42 | NUR ---
RECEIVED REPORT FROM PREVIOUS NURSE. CALL LIGHT WITHIN REACH. PATIENT IN RECLINER. Addendum: 02/21/19 at 4062 by Mari Laird RN TIME WAS MEANT FOR [id number]
[2019-02-22] VITALS (8 sets, daily range): BP systolic 136–147; BP diastolic 61–67
[2019-02-22] MEDS: IPRATROPIUM BROMIDE 0.02% 2.5 ML NEB NEB SCH ×4 (00:15→19:00)
[2019-02-22 05:45] LABS: BASOPHILS % 0.4 % (0.0-1.0); EOSINOPHILS # (AUTO) 0.3 (0.0-0.4); EOSINOPHILS % 3.4 % (0.0-6.0); HEMOGLOBIN 9.2 g/dL (12.0-16.0); LYMPHOCYTES # (AUTO) 1.8 (1.0-3.2); LYMPHOCYTES % 19.8 % (18.0-39.1); MEAN CORPUSCULAR HGB CONC 31.7 g/dL (31-35); MEAN CORPUSCULAR VOLUME 91.5 fL (81-99); MONOCYTES # (AUTO) 1.5 (0.2-0.8); MONOCYTES % 15.9 % (4.4-11.3); NEUTROPHILS # (AUTO) 5.5 (2.1-6.9); NEUTROPHILS % 59.8 % (38.7-80.0); PLATELET COUNT 213 x10e3/uL (140-360); RED BLOOD COUNT 3.17 x10e6/uL (3.6-5.1); RED CELL DISTRIBUTION WIDTH 13.7 % (11.7-14.4)
[2019-02-22] MEDS: MORPHINE SULFATE INJ 4 MG/ML INJ 1ML IV PRN ×2 (06:02→23:36)
[2019-02-22] MEDS: CLINDAMYCIN PHOS 900MG/ 50ML 50 ML IV SCH ×3 (06:02→21:19)
[2019-02-22 06:10] LABS: ANION GAP 12.4 mmol/L (8-16); CALCIUM 10.1 mg/dL (8.4-10.2); CREATININE, SERUM 0.9 mg/dL (0.57-1.11); POTASSIUM 4.4 mmol/L (3.5-5.1)
--- NOTE | 2019-02-22 07:12 | NUR ---
Gave report to oncoming nurse. Call light within reach. Patient in recliner.
--- NOTE | 2019-02-22 07:13 | NUR ---
walking rounds completed, change of shift report received from tony shift RN, pt in stable condition, all safety measures in place.
[2019-02-22] MEDS: INSULIN REGULAR, HUMAN 100 UNIT/1 ML 3ML VIAL SQ SCH ×4 (07:30→21:00)
[2019-02-22] MEDS: MEXILETINE HCL 150 MG PO SCH ×2 (09:00→17:00)
[2019-02-22] MEDS: CLONIDINE HCL 0.1 MG TAB PO SCH ×2 (09:35→17:36)
[2019-02-22] MEDS: APIXABAN 5 MG TABLET PO SCH ×2 (09:38→17:36)
[2019-02-22] MEDS: PRAMIPEXOLE DIHYDROCHLORIDE 1 MG TAB PO SCH ×2 (09:39→17:38)
[2019-02-22] MEDS: POTASSIUM CHLORIDE 20 MEQ TAB CR PO SCH ×2 (09:39→17:37)
[2019-02-22] MEDS: AZITHROMYCIN 250 MG TAB PO SCH (09:40)
[2019-02-22] MEDS: FUROSEMIDE INJ 10 MG/ML 4 ML VIAL IV SCH ×2 (09:40→21:19)
[2019-02-22] MEDS: OMEGA 3 POLYUNSAT FATTY ACIDS 1000 MG SOFTGEL PO SCH (09:40)
[2019-02-22] MEDS: MULTIVITAMINS/MINERALS TAB PO SCH (09:40)
[2019-02-22] MEDS: CEFTRIAXONE SOD 1 GM/NS 50 ML 50 ML IV SCH (09:44)
[2019-02-22] MEDS: BALSAM PERU/CASTOR OIL 5 GM OINT...G. TP SCH (16:07)
--- NOTE | 2019-02-22 19:05 | NUR ---
received report from day nurse. patient is resting comfortably in bed. bed is in lowest position and call light is within reach. will continue to monitor patient.
--- NOTE | 2019-02-22 20:11 | NUR ---
Nutrition Screen Note RD Recommendation for Physician: -Continue cardiac diet Plan of Care: RD following, monitoring for tolerance and adequacy Nutrition reason for involvement: Diagnosis - CHF Primary Diagnose(s): CHF, pneumonia, hypoxia, hypertensive urgency PMH: Atrial fibrillation, anticoagulant therapy, hypertension, severe peripheral neuropathy, chronic lower extremity venous skin changes, dyslipidemia, coronary artery bypass graft surgery Ht: 67 in Wt:188 lb BMI: 29.5 kg/m2 IBW: [address] Assessment: (02/22/19) Chart reviewed. Labs and meds reviewed. Pt is an 78 year old female admitted with CHF, pneumonia, hypoxia, hypertensive urgency. Pt was not available at time of visit. Per documentation, pt has been eating 50-100% of meals during admission. Will continue to monitor. Current Diet: Cardiac Malnutrition Evaluation (02/22/19) The patient does not meet criteria for a specified degree of malnutrition at this time. Will re-evaluate at follow-up as appropriate. Diet Education Needs Assessment: RD is available for diet education as needed Nutrition Care Level: low Signed: Shy Peraza, KELIN, LD
[2019-02-22] MEDS: NORTRIPTYLINE HCL 25 MG CAP PO SCH (21:19)
[2019-02-22] MEDS: ONDANSETRON HCL 4 MG ORAL DISINTEGRATING TAB PO PRN (23:36)
[2019-02-23] VITALS: BP 186/77
[2019-02-23 04:00] VITALS: BP 121/56
[2019-02-23] MEDS: CLINDAMYCIN PHOS 900MG/ 50ML 50 ML IV SCH (05:21)
--- NOTE | 2019-02-23 06:40 | NUR ---
Patient is resting comfortably in the bed, bed is in lowest position and call abdullahi is within reach.
[2019-02-23] MEDS: IPRATROPIUM BROMIDE 0.02% 2.5 ML NEB NEB SCH ×2 (07:15)
[2019-02-23] MEDS: ONDANSETRON HCL 4 MG ORAL DISINTEGRATING TAB PO PRN (07:18)
[2019-02-23] MEDS: MORPHINE SULFATE INJ 4 MG/ML INJ 1ML IV PRN (07:18)
[2019-02-23] MEDS: INSULIN REGULAR, HUMAN 100 UNIT/1 ML 3ML VIAL SQ SCH (07:30)
[2019-02-23] MEDS ORDERED: SODIUM CHLORIDE 0.9% 250ML 250 ML ONE (07:38)
[2019-02-23 08:00] VITALS: BP 110/56
[2019-02-23 08:10] VITALS: BP 110/56
[2019-02-23] MEDS: PRAMIPEXOLE DIHYDROCHLORIDE 1 MG TAB PO SCH (08:32)
[2019-02-23] MEDS: POTASSIUM CHLORIDE 20 MEQ TAB CR PO SCH (08:32)
[2019-02-23] MEDS: APIXABAN 5 MG TABLET PO SCH (08:32)
[2019-02-23] MEDS: MULTIVITAMINS/MINERALS TAB PO SCH (08:33)
[2019-02-23] MEDS: CLONIDINE HCL 0.1 MG TAB PO SCH (08:33)
[2019-02-23] MEDS: MEXILETINE HCL 150 MG PO SCH (08:33)
[2019-02-23] MEDS: AZITHROMYCIN 250 MG TAB PO SCH (08:33)
[2019-02-23] MEDS: FUROSEMIDE INJ 10 MG/ML 4 ML VIAL IV SCH (08:33)
[2019-02-23] MEDS ORDERED: ELIQUIS5 M1 PO (09:37)
[2019-02-23] MEDS ORDERED: CLINDAMYCIN PO (09:38)
[2019-02-23] MEDS: OMEGA 3 POLYUNSAT FATTY ACIDS 1000 MG SOFTGEL PO SCH (09:50)
[2019-02-23] MEDS: CEFTRIAXONE SOD 1 GM/NS 50 ML 50 ML IV SCH (09:50)
[2019-02-23] MEDS: BALSAM PERU/CASTOR OIL 5 GM OINT...G. TP SCH (09:50)
--- NOTE | 2019-02-23 10:11 | Discharge Summary ---
PRIMARY CARE PHYSICIAN: Hawa Gamble M.D. CONSULTANTS: 1. Cuco Back M.D. 2. Julieta Holman M.D. FINAL DIAGNOSES: 1. Pneumonia associated with possible aspiration pneumonia. 2. Hnlky-vc-fgtfunt systolic dysfunction, congestive heart failure associated with pulmonary vascular congestion. 3. Status post respiratory insufficiency. 4. Atrial fibrillation with rapid ventricular rate response, controlled now. 5. Bilateral lower extremity cellulitis, improving. SUMMARY: The patient is an 78-year-old female, came to the hospital with respiratory insufficiency. The patient was admitted to [facility]. The patient was given significant diuretic. She did better. Bilaterally pneumonia with high fever. The patient also found to have paroxysmal atrial fibrillation. The patient was placed on treatment. Her lactic acid level was 1.6, which is normal. The patient's influenza type A and B was negative. When she presented to the hospital, her WBC was 20,800, now down to 9100. The patient is chronically anemic. She was dry when she came to the hospital. Hemoglobin and hematocrit now are 9.2 and 29. The patient is otherwise stable. Microbiologies, the Gram stain on the wound showed to be Staphylococcus aureus. Blood culture was negative. The patient is otherwise stable. She is comfortable. She is ambulatory. Her shortness of breath has significantly improved. The CT of the chest and repeat x-ray showed resolution in some of the findings. The patient is otherwise stable. She will go home today. She will upgrade her medication and follow. For home medications, she will discontinue the hydralazine. 1. She was started on Lasix instead of once a day, she will take twice a day. 2. Potassium, K-Dur 20 mEq twice a day instead of once a day. 3. Eliquis 5 mg twice a day. 4. Clindamycin 300 mg three times a day for 5 days. 5. The patient will continue with her wound care to lower extremity. DISCHARGE INSTRUCTIONS: She will follow up with Dr. Holman, her sonography technician in a week and with Dr. Jaramillo and her primary physician Dr. Gamble within a week as well. The patient is stable, discharged home today and follow up as instructed. MD JUAN Samano/CLAYL /[id number]
--- NOTE | 2019-02-23 11:08 | NUR ---
Left FA IV discontinued. No signs of infiltration noted. 2x2 gauze and tape placed. Taken via wheelchair by PCT to personal car. AAOX4 to time, person,place, situation. Respirations even and unlabored. Discharge instructions, rx, and all personal belongings taken with patient.
== END 2019-02-23 11:08 | disposition home or self-care (01) | DRG 177 ==
LOC: ER 09:07 → ERHOLD 10:21 → IMCU 17:31 → MED/SURG3 02-20 17:37
PROVIDERS: ADMIT Internal Medicine; ATTEND Internal Medicine
DX: J69.0 Pneumonitis due to inhalation of food and vomit (principal); I50.23 Acute on chronic systolic (congestive) heart failure; L03.116 Cellulitis of left lower limb; L03.115 Cellulitis of right lower limb; I11.0 Hypertensive heart disease with heart failure; I16.0 Hypertensive urgency; E78.5 Hyperlipidemia, unspecified; I25.10 Atherosclerotic heart disease of native coronary artery without angina pectoris; I48.0 Paroxysmal atrial fibrillation; G62.9 Polyneuropathy, unspecified; R06.89 Other abnormalities of breathing; R09.02 Hypoxemia; B95.61 Methicillin susceptible Staphylococcus aureus infection as the cause of diseases classified elsewhere; I49.5 Sick sinus syndrome; D64.9 Anemia, unspecified; R53.81 Other malaise; R26.9 Unspecified abnormalities of gait and mobility; Z91.81 History of falling; Z85.3 Personal history of malignant neoplasm of breast; Z95.0 Presence of cardiac pacemaker; Z79.01 Long term (current) use of anticoagulants; Z95.1 Presence of aortocoronary bypass graft; Z88.6 Allergy status to analgesic agent; Z88.8 Allergy status to other drugs, medicaments and biological substances
CPT/HCPCS: 36415; 36600; 71045; 71046; 71260; 80048; 80053; 80061; 81001; 82550; 82553; 82805; 82948; 83605; 83880; 84443; 84484; 85025; 85379; 87040; 87071; 87186; 87205; 87400; 93005; 94640; 94660; 99284; J0360; J0696; J1940; J2270; J7050; Q0162; Q9967

== ENCOUNTER 2019-11-14 15:21 | Emergency (ER) | payer MEDICARE ==
[~2019-11-14] VITALS: Ht 170.2 cm; Wt 85.3 kg
[~2019-11-14 15:21] MED LIST changes: +CARBAMAZEPINE200 MG PO; +CLINDAMYCIN PO; +ELIQUIS5 M1 PO
--- NOTE | 2019-11-14 15:25 | NUR ---
c-collar placed. point tenderness. pt states pain to neck. gcs 15, no neuro defeicts before or after c-collar placement. pt aaox4. strict c-spine precautions.
--- NOTE | 2019-11-14 16:00 | NUR ---
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
--- NOTE | 2019-11-14 17:14 | Diagnostic Imaging Report ---
Examination: CT head without contrast Clinical Indication: ^FALL.Left head injury Technique: Transaxial noncontrast images from the skull base through the vertex were obtained. Sagittal and coronal reformatted images were done. Dose modulation, iterative reconstruction, and/or weight based adjustment of the mA/kV was utilized to reduce the radiation dose to as low as reasonably achievable. Comparison: head CT dated 02/13/2018. Findings: Scalp: No abnormalities. Bones: Intact. No fractures. No blastic or lytic lesions. Brain sulci: Appropriate for patient's age. Ventricles: Normal in size and configuration. No hydrocephalus. . Extra-axial space: No abnormalities. Parenchyma: There are patchy areas of low-attenuation within subcortical and periventricular white matter, nonspecific, but could represent microvascular ischemic disease. No masses, hemorrhage, or acute or chronic cortical based vascular insults. Suprasellar region: No abnormalities. Craniocervical junction: The foramen magnum is patent. No Chiari one malformation. Incidental findings: Atherosclerotic calcification of the cavernous and supraclinoid internal carotid arteries. Impression: 1. No new or acute intracranial finding when compared to prior head CT dated 02/13/2018. 2. Unchanged chronic microvascular ischemic change. Signed by: Dr. Sofia Patterson M.D. on 11/14/2019 5:10 PM
--- NOTE | 2019-11-14 17:23 | Diagnostic Imaging Report ---
Examination: CT C-SPINE W/O - HOPD HISTORY:Neck pain and injury after fall. ^FALL. COMPARISON:None. TECHNIQUE: Multidetector helical axial images were obtained without contrast from the foramen magnum to T1. Coronal and sagittal reformatted images were done. Bone and soft tissue windows were evaluated. Dose modulation, iterative reconstruction, and/or weight based adjustment of the mA/kV was utilized to reduce the radiation dose to as low as reasonably achievable. FINDINGS: Alignment:Normal alignment and lordosis. Vertebrae: Normal height and density. No infection or neoplasm. Acute fracture of the dens with involvement of the body of C2 with the fracture extending to the C1-C2 joint space. There is no fracture of C1. Disc space heights: Normal height. Caliber of spinal canal: Developmentally normal. Posterior fossa and craniocervical junctio in n: Foramen magnum patent. No Chiari 1 malformation. Soft tissues: Heterogeneity of the thyroid gland. Degenerative changes: Bilateral facet arthropathy from C2-C7. Moderate bilateral neural foraminal narrowing at C3-C4 and C4-C5 due to disc osteophyte complexes and uncovertebral and facet arthropathy. Visualized lung apices: No abnormalities. IMPRESSION: 1. Type III dens fracture. 2. .Degenerative changes, as above. Dr. Sofia Patterson discussed acute findings with Dr. Harris on 11/14/2019 at 1718 hours. Signed by: Dr. Sofia Patterson M.D. on 11/14/2019 5:20 PM
--- OUTSIDE RECORDS SUMMARY | 2019-11-14 17:28 | XMS REPORT | Clinical Summary ---
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 Last Filed Vital Signs Not on file Plan of Treatment Health Maintenance Due Date Last Done Comments SHINGLES VACCINES (#1) 1988 65+ PNEUMOCOCCAL VACCINE 10/15/2003 (1 of 2 - PCV13) INFLUENZA VACCINE 12/09/2019 Implants Device Identifier Shelf Expiration Date Model / Serial / L ot Implanted Type Area Manufactur er 06/05/2018 [id number] / / [id number] Lead Pace Reji Mycrdl Unipol Tmpry Cardiovasc N/A: N/A [employer] Streamline - [id number] ular [place] - Implanted: Qty: 1 on 08/28/2016 by Implants Torsten Leavitt MD at [facility] 06/05/2018 [id number] / / [id number] Lead Pace Reji Mycrdl Unipol Tmpry Cardiovasc N/A: N/A [employer] Streamline - [id number] ular [place] - Implanted: Qty: 1 on 08/28/2016 by Implants Torsten Leavitt MD at [facility] [id number] / / Catheter Thor [place] 36fr 20in Str Surgical N/A: N/A COVIDIEN Pvc - [id number] Implants; LAINE Implanted: 08/28/2016 at [facility] (Quantity not on file) Extenders; Surgical Wires [id number] / / Patch Biosurg Selnt Fibrin Absrbl Surgical N/A: N/A BAILEY 9.5x4.8cm Tachosil - [id number] Implants; BIOSCIE NCE Implanted: 08/28/2016 at [facility] (Quantity not on file) Extenders; Surgical Wires 03/06/2021 [id number] / / [id number] [facility] Vasclr Ptfe 1.2x10cm Vascular N/A: N/A BARD 1.65mm - [id number] Graft PERIPHERAL Implanted: Qty: 1 on 08/28/2016 by VASCULAR Torsten Nino MD at [facility] Results Not on fileafter 11/13/2018 Insurance Type Payer Benefit Subscriber ID Effective Phone Address Plan / Dates Group HMO AETNA MEDICARE AETNA xxxxxxxx [id number] MEDICARE resent HMO/PPO [facility] Advance Directives For more information, please contact: [phone] 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
--- OUTSIDE RECORDS SUMMARY | 2019-11-14 17:28 | XMS REPORT | Continuity of Care Document ---
Author Author [facility] t Organization [facility] Address [address] [place] [address] Phone Unavailable Care Team Providers Care Service Desk Associate Name Role Phone Hawa Gamble MD PCP PANCHITO COREY Attphys Unavailable MARICARMEN REYNOLDS Attphys Unavailable CIDRAIZA Attphys Unavailable KANDI ESTRADA Attphys Unavailable LAURENCE FITZGERALD Attphys Unavailable RODOLFO, MARICARMEN Admphys Unavailable KANDI ESTRADA Admphys Unavailable Payers Payer Name Policy Type Policy Number Effective Date Expiration Date S ource Problems Condition Name Condition Details Condition Category Status Onset Date Resolution Date Last Treatment Date Treating Clinician Comments Source S/P CABG x 2 S/P CABG x 2 Disease Active 2016-08-28 00:00:00 Zion Jiménez Essential hypertension Essential hypertension Disease Active 2016-08-28 00:00:[address] Post-op pain Post-op pain Disease Active 2016-08-28 00:00:00 Zion Jiménez Respiratory insufficiency Respiratory insufficiency Disease Ac tive 2016-08-28 00:00:[address] Paroxysmal atrial fibrillation Paroxysmal atrial fibrillation Disea se Active 2016-08-28 00:00:00 Zion Jiménez 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 Disease Active 2016-08-27 00:00:00 Zion Jiménez Acute on chronic systolic congestive heart failure Acute on chronic systolic congestive heart failure Active Problem 10/06/2019 Julieta Childress Problem Active 2019-10-06 02:45:01 [facility] Angina of effort Taina na of effort Active Problem 10/06/2019 Julieta Childress Problem Active 2019-10-06 02:45:01 [facility] GONZÁLES (dyspnea on exertion) GONZÁLES (dyspnea on exertion) Active Problem 10/06/2019 Julieta Childress Problem Active 20 26-09-28 02:45:01 [facility] Atherosclerosis of [place] coronary artery of [place] he art with angina pectoris Atherosclerosis of [place] coronary artery of [place] heart with angina pectoris Active Problem 10/06/2019 Julieta Childress Problem A ctive 2019-10-06 02:45:01 [facility] Atherosclerosis of both carotid arteries Atherosclerosis of both carotid arteries Active Problem 10/06/2019 Julieta Childress Problem Active 2019-10-06 02:45:01 Abelor ial Shawn S/P CABG (coronary artery bypass graft) S/P CABG (coronary artery bypass graft) Active Problem 10/06/2019 Julieta Childress Problem Active 2019-10-06 02:45:01 [facility] Nonrheumatic tricuspid (valve) insufficiency Nonrheumatic tricuspid (valve) insufficiency Active Problem 10/06/2019 Julieta Childress Problem Active 2019-10-06 02:45:01 [facility] Patient unable to exercise Pat ient unable to exercise Active Problem 10/06/2019 Julieta Childress Problem Active 2019-10-06 02:45:01 [facility] LVH (left ventricular hypertrophy) due t o hypertensive disease, without heart failure LVH (left ventri cular hypertrophy) due to hypertensive disease, without heart failure Active Problem 10/06/2019 Julieta Childress Problem Active 2019-10-06 02:45:01 [facility] Non-rheumatic mitral regurgitation Non-rheumatic mitral regurgitation Active Problem 10/06/2019 Julieta Childress Problem Active 2019-10-06 02:45:01 [facility] S/P AV kala ablation S/P AV kala ablation Active Problem 10/06/2019 Julieta Childress Problem Active 2019-10-06 02:45:0 1 [facility] Hypercholesteremia Hype rcholesteremia Active Problem 10/06/2019 Mohamed O Jeroudi Problem Active 2019-10-06 02:45:01 [facility] FH: CAD (coronary artery disease) FH: CAD (coronary artery disease) Active Problem 10/06/2019 Julieta Childress Problem Active 2019-10-06 02:45:01 [facility] Cardiac pacemaker in situ Card iac pacemaker in situ Active Problem 10/06/2019 Julieta Childress Problem Active 26-09-28 02:45:01 [facility] Benign essential hypertension Benign essential hypertension Active Problem 10/06/2019 Julieta Childress Problem Active 2019-10-06 02:45:01 [facility] Atrial fibrillation Atri al fibrillation Active Problem 10/06/2019 Juileta Childress Problem Active 2019-10-06 02:45:01 [facility] Carotid art occ w/o infarc Car otid art occ w/o infarc Active Problem 10/06/2019 Julieta Childress Problem Active 2019-10-06 02:45:01 [facility] Shortness of breath Shor tness of breath Active Problem 10/06/2019 Julieta Childress Problem Active 2019-10-06 02:45:01 [facility] Coronary atherosclerosis of unspecified type of bypass graft Coronary atherosclerosis of unspecified type of bypass graft Active Problem 10/06/2019 Julieta Childress Problem Active 2019-10-06 02:45:01 [facility] Hypercholesteremia Hype rcholesteremia Active Problem 11/04/2015 Julieta Childress Problem Active 2015-11-04 02:48:56 [facility] Nonrheumatic mitral (valve) insufficiency Nonrheumatic mitral (valve) insufficiency Active Problem 11/04/2015 Julieta Childress Problem Active 2015-11-04 02:48:56 [facility] Nonrheumatic tricuspid valve disorder Nonrheumatic tricuspid valve disorder Active Problem 11/04/2015 Julieta Carmendi Problem Active 2015-11-04 02:48:56 [facility] Chronic atrial fibrillation, unspecified Chronic atrial fibrillation, unspecified Active Problem 10/06/2019 Julieta Carmendi Problem Active 2019-10-06 02:45:01 [facility] Pacemaker end of life Pace maker end of life Active Problem 10/06/2019 Julieta Childress Problem Active 2019-10-06 02:45:0 1 [facility] Presence of Watchman left atrial appendage closure dev ice Presence of Watchman left atrial appendage closure device Active Problem 10/06/2019 Julieta Childress Problem Active 2019-10-06 02:45:01 [facility] Complete AV block Comp lete AV block Active Problem 10/06/2019 Julieta Childress Problem Active 2019-10-06 02:45:01 [facility] Chronic diastolic heart failure Chronic diastolic heart failure Active Problem 10/06/2019 Julieta Childress Problem Active 2019-10-06 02:45:01 [facility] Allergies, Adverse Reactions, Alerts Allergy Name Allergy Type Status Severity Reaction(s) Onset Date Inacti ve Date Treating Clinician Comments Source Atorvastatin Calcium Atorvastatin Calcium Active myalgias 2019-04-06 00:00:00 [facility] verapamil DA Active U 2019-02-12 00:00:00 [facility] Toprol XL Toprol XL Active weakness) 2019-01-06 00:00:00 [facility] Norvasc Norvasc Active legs swelling 2019-01-06 00:00:00 [facility] Motrin Motrin Active rash 2019-01-06 00:00:00 [facility] Clonidine HCl Clonidine HCl Active sleep 2019-01-06 00:00:00 [facility] Codeine Propensity to adverse reactions to drug Active Itching 2016-08-27 00:00:00 Makes patient itch really bad Adriano Jiménez Atorvastatin Propensity to adverse reactions to drug Active Moder ate 2016-08-27 00:00:00 Aching joints, Arthralgia Adriano Jiménez Ibuprofen Propensity to adverse reactions to drug Active Rash 2016-08-20 00:00:00 Zion jon Amlodipine Propensity to adverse reactions to drug Active Swelling 2016-08-20 00:00:00 Leg swelling - Side effects Murali Jiménez codeine DA Active U 2016-08-08 00:00:00 [facility] ibuprofen DA Active U 2016-08-08 00:00:00 [facility] Family History Family Member Diagnosis Comments Start Date Stop Date Source Natural father Heart disease Zion Jiménez Natural mother Heart disease Zion Jiménez Natural sister Cancer [facility] thodi Social History Social Habit Start Date Stop Date Quantity Comments Source History of tobacco use Cigarette Smoker Zion Jiménez Sex Assigned At Uzma Jiménez Alcohol intake 2016-08-30 00:00:00 2016-08-30 00:00:00 Current non-drinker of alcohol (finding) [facility] Tobacco Comment 2016-08-20 00:00:00 2016-08-20 00:00:00 Quit in 1994 [place] [facility] Smoking 2015-06-06 00:00:00 2015-06-06 00:00:00 [facility] [place] Smoking Status Start Date Stop Date Source Former smoker 2016-08-30 00:00:00 2016-08-30 00:00:00 [facility] Medications Ordered Medication Name Filled Medication Name Start Date Stop Da te Current Medication? Ordering Clinician Indication Dosage Frequency Signature (SIG) Comments Components Source Fish Oil 2019-07-20 02:45:59 Yes Ahmad Jeroudi 1 capsule [facility] [place] Lasix 2019-07-20 02:45:59 Yes Ahmad Jeroudi 1 tab let [facility] Clonidine HCl 2019-07-20 02:45:59 Yes Ahmad Jeroudi 1 tablet [facility] Losartan Potassium 2019-07-20 02:45:59 Yes Ahmad Jeroudi 1 tablet [facility] Pramipexole Dihydrochloride 2019-07-20 02:45:59 Yes Ahma d Jeroudi 1 tablet [facility] Potassium Chloride Shawanda ER 2019-07-20 02:45:59 Yes Ahmad Jeroudi 1 tablet with food [facility] HydrALAZINE HCl 2019-07-20 02:45:59 Yes Ahmad Jeroudi 1 tablet [facility] Metolazone 2019-07-20 02:45:59 Yes Ahmad Jeroudi 1 tablet [facility] Irbesartan 2019-07-20 02:45:59 Yes Ahmad Jeroudi 1 tablet [facility] Nortriptyline HCl 2019-07-20 02:45:59 Yes Ahmad Jeroudi 1 capsule [facility] Hydrocodone-Acetaminophen 2019-07-20 02:45:59 Yes Ahmad Jeroudi 1 tablet as needed [facility] Coumadin 2019-07-20 02:45:59 Yes Ahmad Jeroudi 1 tablet [facility] Diclofenac Sodium & Benzalk Cl 2019-07-20 02:45:59 Yes A hmad Jeroudi as directed [facility] Tylenol 3 2019-07-20 02:45:56 Yes Mohamed Jeroudi not defined [facility] Xarelto 2019-07-20 02:45:56 Yes Julieta Berriosfabricedi 1 tablet with food [facility] Clopidogrel Bisulfate 2019-04-06 00:00:00 Yes Julieta molinamundo 1 tablet [facility] Aspirin Adult 2019-04-06 00:00:00 Yes Titadanyel Yashoudi 1 tablet [facility] Metoprolol Succinate 2017-07-12 02:47:00 Yes Julieta Berriosoudi 1 tablet [facility] Warfarin Sodium 2017-07-12 02:47:00 Yes Titaamed Jeroudi 1 tablet [facility] Gabapentin 2017-07-12 02:46:58 Yes Titaamed Jeroudi 1 capsule [facility] Calcium 2017-07-12 02:46:58 Yes Titaamed Jeroudi 1 tablet with meals [facility] Losartan Potassium 2016-11-09 02:46:21 Yes Ahmad Jeroudi 1 tablet [facility] Calcium 2016-11-09 02:46:21 Yes Ahmaosmin Berriosoudi 1 t ablet with meals [facility] Oxcarbazepine 2016-11-09 02:46:21 Yes Ahmad Jeroudi 1 tablet [facility] Clonidine HCl 2016-11-09 02:46:21 Yes Ahmad Jeroudi 1 tablet [facility] Lasix 2016-11-09 02:46:21 Yes Ahmad Jeroudi 1 tab let [facility] Fish Oil 2016-11-09 02:46:21 Yes Ahmad Jeroudi 1 capsule [facility] Pramipexole Dihydrochloride 2016-11-09 02:46:21 Yes Marco jimenez Jeroudi 1 tablet [facility] Warfarin Sodium 2016-11-09 02:46:21 Yes Shlomomad Jeroudi 1 tablet [facility] Potassium Chloride Shawanda ER 2016-11-09 02:46:21 Yes Ahmad Jeroudi 1 tablet with food [facility] HydrALAZINE HCl 2016-11-09 02:46:18 Yes Julieta Jeroudi 1 tablet [facility] pramipexole (MIRAPEX) 1 MG tablet 2016-09-04 14:09:20 Yes 1mg QD Take 1 mg by mouth nightly. Zion Jiménez warfarin (COUMADIN) 5 MG tablet 2016-09-04 14:09:20 Yes 5mg QD Take 5 mg by mouth daily. Take 1 tablet (5mg) by mouth daily for 30 days. Zion Jiménez metoprolol succinate XL (TOPROL-XL) 50 mg 24 hr tablet 2016-09-04 14:09:20 Yes 50mg QD Take 50 mg by mouth daily. Zion Jiménez losartan (COZAAR) 100 MG tablet 2016-09-04 14:09:20 Yes 100mg QD Take 100 mg by mouth daily. Zion Jiménez clonIDINE (CATAPRES) 0.1 MG tablet 2016-09-04 14:09:20 Yes .1mg Q.5D Take 0.1 mg by mouth 2 (two) times a day. Zion Jiménez OXcarbazepine (TRILEPTAL) 150 MG tablet 2016-09-04 14:09:20 Yes 150mg QD Take 150 mg by mouth every morning. Takes 1 tab morning Zion Jiménez OXcarbazepine (TRILEPTAL) 150 MG tablet 2016-09-04 14:09:20 Yes 150mg QD Take 150 mg by mouth nightly. Takes 2 tabs at bedtime Zion Jiménez Tramadol HCl 2015-11-04 02:48:56 Yes Titaamed Jeroudi 1 tablet as needed [facility] Nortriptyline HCl 2015-11-04 02:48:56 Yes Julieta Jeroudi 1 capsule [facility] Metoprolol Succinate 2015-11-04 02:48:56 Yes Julieta Jeroudi 1 tablet [facility] Vital Signs Vital Name Observation Time Observation Value Comments Source Weight 2019-04-06 20:00:00 [facility] Height 2019-04-06 20:00:00 [facility] Temperature Oral (F) 2019-04-06 20:00:00 96.2 F [facility] Heart Rate 2019-04-06 20:00:00 [facility] Diastolic (mm Hg) 2019-04-06 20:00:00 [facility] [place] Systolic (mm Hg) 2019-04-06 20:00:00 [facility] n[facility] Weight 2019-01-25 19:30:00 [facility] Height 2019-01-25 19:30:00 [facility] Temperature Oral (F) 2019-01-25 19:30:00 95.2 F [facility] Heart Rate 2019-01-25 19:30:00 [facility] Diastolic (mm Hg) 2019-01-25 19:30:00 [facility] Systolic (mm Hg) 2019-01-25 19:30:00 [facility] Weight 2019-01-06 17:30:00 [facility] [place] Height 2019-01-06 17:30:00 [facility] Temperature Oral (F) 2019-01-06 17:30:00 95.0 F [facility] [place] Heart Rate 2019-01-06 17:30:00 [facility] [place] Diastolic (mm Hg) 2019-01-06 17:30:00 [facility] [place] Systolic (mm Hg) 2019-01-06 17:30:00 [facility] [place] Weight 2017-03-27 19:00:00 [facility] Height 2017-03-27 19:00:00 [facility] Temperature Oral (F) 2017-03-27 19:00:00 96.7 F [facility] Heart Rate 2017-03-27 19:00:00 [facility] Diastolic (mm Hg) 2017-03-27 19:00:00 [facility] [place] Systolic (mm Hg) 2017-03-27 19:00:00 [facility] Weight 2016-12-03 18:00:00 [facility] Height 2016-12-03 18:00:00 [facility] Temperature Oral (F) 2016-12-03 18:00:00 98.3 F [facility] Heart Rate 2016-12-03 18:00:00 [facility] [place] Diastolic (mm Hg) 2016-12-03 18:00:00 [facility] Systolic (mm Hg) 2016-12-03 18:00:00 [facility] [place] Weight 2016-10-16 20:00:00 [facility] [place] Height 2016-10-16 20:00:00 [facility] Temperature Oral (F) 2016-10-16 20:00:00 96.0 F [facility] [place] Heart Rate 2016-10-16 20:00:00 [facility] Diastolic (mm Hg) 2016-10-16 20:00:00 [facility] [place] Systolic (mm Hg) 2016-10-16 20:00:00 [facility] [place] Weight 2016-09-12 19:00:00 [facility] Height 2016-09-12 19:00:00 [facility] [place] Temperature Oral (F) 2016-09-12 19:00:00 97.2 F [facility] [place] Heart Rate 2016-09-12 19:00:00 [facility] Diastolic (mm Hg) 2016-09-12 19:00:00 [facility] Systolic (mm Hg) 2016-09-12 19:00:00 Matthew [facility] Weight 2016-08-15 18:30:00 [facility] [place] Height 2016-08-15 18:30:00 [facility] Temperature Oral (F) 2016-08-15 18:30:00 97.6 F [facility] [place] Heart Rate 2016-08-15 18:30:00 [facility] [place] Diastolic (mm Hg) 2016-08-15 18:30:00 [facility] Systolic (mm Hg) 2016-08-15 18:30:00 Matthew [facility] [place] Weight 2016-07-31 18:00:00 [facility] Height 2016-07-31 18:00:00 [facility] [place] Temperature Oral (F) 2016-07-31 18:00:00 98.3 F [facility] [place] Heart Rate 2016-07-31 18:00:00 [facility] [place] Diastolic (mm Hg) 2016-07-31 18:00:00 [facility] [place] Systolic (mm Hg) 2016-07-31 18:00:00 Matthew [facility] [place] Weight 2016-07-23 19:00:00 [facility] [place] Height 2016-07-23 19:00:00 [facility] [place] Temperature Oral (F) 2016-07-23 19:00:00 97.0 F [facility] [place] Heart Rate 2016-07-23 19:00:00 [facility] [place] Diastolic (mm Hg) 2016-07-23 19:00:00 [facility] Systolic (mm Hg) 2016-07-23 19:00:00 [facility] Weight 2015-06-06 19:00:00 [facility] Height 2015-06-06 19:00:00 [facility] Temperature Oral (F) 2015-06-06 19:00:00 96.5 F [facility] [place] Heart Rate 2015-06-06 19:00:00 [facility] [place] Diastolic (mm Hg) 2015-06-06 19:00:00 [facility] Systolic (mm Hg) 2015-06-06 19:00:00 Matthew [facility] [place] Weight 2015-05-24 18:00:00 [facility] [place] Height 2015-05-24 18:00:00 [facility] [place] Temperature Oral (F) 2015-05-24 18:00:00 96.7 F [facility] [place] Heart Rate 2015-05-24 18:00:00 [facility] [place] Diastolic (mm Hg) 2015-05-24 18:00:00 [facility] Systolic (mm Hg) 2015-05-24 18:00:00 [facility] [place] Procedures This patient has no known procedures. Plan of Care Planned Activity Planned Date Details Comments Source Future Scheduled Test 2019-12-09 00:00:00 INFLUENZA VACCINE [code = INFLUENZA VACCINE] [facility] Future Scheduled Test 2003-10-15 00:00:00 65+ PNEUMOCOCCAL V ACCINE (1 of 2 - PCV13) [code = 65+ PNEUMOCOCCAL VACCINE (1 of 2 - PCV13)] [facility] Future Scheduled Test 1988 00:00:00 SHINGLES VACCINES (#1) [code = SHINGLES VACCINES (#1)] [facility] Encounters Start Date/Time End Date/Time Encounter Type Admission Type [facility] Care Department Encounter ID Source 2019-10-05 15:08:00 2019-10-05 15:08:00 Outpatient Julieta Childress MD [place] [id number] [employer] 2019-04-06 15:00:00 2019-04-06 15:00:00 Outpatient Julieta Childress MD [place] [id number] [employer] 2019-01-25 14:30:00 2019-01-25 14:30:00 Outpatient Julieta Childress MD [place] [id number] [employer] 2019-01-06 12:30:00 2019-01-06 12:30:00 Outpatient Juleita Childress MD [place] [id number] [employer] 2018-02-11 11:40:00 2018-02-11 11:40:00 Outpatient Julieta Childress MD [place] [id number] [employer] 2017-03-27 14:00:00 2017-03-27 14:00:00 Outpatient Julieta Childress MD PA [id number] [employer] 2016-12-03 13:00:00 2016-12-03 13:00:00 Outpatient Julieta Childress MD PA [id number] [employer] 2016-10-16 15:00:00 2016-10-16 15:00:00 Outpatient Julieta Childress MD [place] [id number] [employer] 2016-09-12 14:00:00 2016-09-12 14:00:00 Outpatient Julieta Childress MD PA [id number] [employer] 2016-09-06 16:00:00 2016-09-06 16:00:00 Outpatient Julieta Childress MD PA [id number] [employer] 2016-08-15 13:30:00 2016-08-15 13:30:00 Outpatient Julieta Childress MD PA [id number] [employer] 2016-07-31 13:00:00 2016-07-31 13:00:00 Outpatient Julieta Childress MD [place] [id number] [employer] 2016-07-23 14:00:00 2016-07-23 14:00:00 Outpatient Julieta Childress MD PA [id number] [employer] 2015-06-06 14:00:00 2015-06-06 14:00:00 Outpatient MD EMILY Guidry MD [place] [id number] [employer] 2015-05-24 13:00:00 2015-05-24 13:00:00 Outpatient [place] [id number] [employer] Results Test Description Test Time Test Comments Results Result Comments Source CT C-SPINE W/O - HOPD 2019-11-14 17:10:00 [place] [address] Patient Name: FITO MCCONNELL I MR #: [id number] : 1940 Age/Sex: 79/F Req #: [id number] Adm Physician: Ordered by: PANCHITO COREY MD Report #: [id number] Location: [facility] Room/Bed: Procedure: [id number] HOPD/CT C-SPINE W/O - HOPD Exam Date: Exam Time: REPORT STATUS: Signed Examination: CT C-SPINE W/O - HOPD HISTORY:Neck pain and injury after fall. FALL. COMPARISON:None. TECHNIQUE: Multidetector helical axial images were obtained without contrast from the foramen magnum to T1. Coronal and sagittal reformatted images were done. Bone and soft tissue windows were evaluated. Dose modulation, iterative reconstruction, and/or weight based adjustment of the mA/kV was utilized to reduce the radiation dose to as low as reasonably achievable. FINDINGS: Alignment:Normal alignment and lordosis. Vertebrae: Normal height and density. No infection or neoplasm. Acute fracture of the dens with involvement of the body of C2 with the fracture extending to the C1-C2 joint space. There is no fracture of C1. Disc space heights: Normal height. Caliber of spinal canal: Developmentally normal. Posterior fossa and craniocervical junctio in n: Foramen magnum patent. No Chiari 1 malformation. Soft tissues: Heterogeneity of the thyroid gland. Degenerative changes: Bilateral facet arthropathy from C2-C7. Moderate bilateral neural foraminal narrowing at C3- C4 and C4-C5 due to disc osteophyte complexes and uncovertebral and facet arthropathy. Visualized lung apices: No abnormalities. IMPRESSION: 1. Type III dens fracture. 2. .Degenerative changes, as above. Dr. Sofia Patterson discussed acute findings with Dr. Corey on 11/14/2019 at 1718 hours. Signed by: Dr. Sofia Patterson M.D. on 11/14/2019 5:20 PM Dictated By: SOFIA YATES MD [id number] Transcribed By: SHAUNNA on 11/14/191719 COPY TO: PANCHITO COREY MD CT BRAIN WO-HOPD 2019-11-14 17:00:00 [facility] [address] [address] Patient Name: FITO MCCONNELL I MR #: [id number] : 1940 Age/Sex: 79/F Req #: [id number] Adm Physician: Ordered by: PANCHITO COREY MD Report #: [id number] Location: [facility] Room/Bed: Procedure: [id number] [facility] Exam Date: Exam Time: REPORT STATUS: Signed Examination: CT head without contrast Clinical Indication: FALL.Left head injury Technique: Transaxial noncontrast images from the skull base through the vertex were obtained. Sagittal and coronal reformatted images were done. Dose modulation, iterative reconstruction, and/or weight based adjustment of the mA/kV was utilized to reduce the radiation dose to as low as reasonably achievable. Comparison: head CT dated 02/13/2018. Findings: Scalp: No abnormalities. Bones: Intact. No fractures. No blastic or lytic lesions. Brain sulci: Appropriate for patient's age. Ventricles: Normal in size and configuration. No hydrocephalus. . Extra-axial space: No abnormalities. Parenchyma: There are patchy areas of low-attenuation within subcortical and periventricular white matter, nonspecific, but could represent microvascular ischemic disease. No masses, hemorrhage, or acute or chronic cortical based vascular insults. Suprasellar region: No abnormalities. Craniocervical junction: The foramen magnum is patent. No Chiari one malformation. Incidental findings: Atherosclerotic calcification of the cavernous and supraclinoid internal carotid arteries. Impression: 1. No new or acute intracranial finding when compared to prior head CT dated 02/13/2018. 2. Unchanged chronic microvascular ischemic change. Signed by: Dr. Sofia Patterson M.D. on 11/14/2019 5:10 PM Dictated By: SOFIA PATTERSON MD 09 Transcribed By: SHAUNNA on 11/14/191709 COPY TO: PANCHITO COREY MD COMPREHENSIVE METABOLIC PANEL 2019-04-09 15:42:00 Test Item SODIUM (test code = NA) 140 mmol/L 136-145 N POTASSIUM (test code = K) 2.9 mmol/L 3.5-5.1 L Re sults called to [id number] by [email or web address] 04/09/19 [id number] results verified and read back by Nurse? Y CHLORIDE (test code = CL) 99.0 mmol/L 98-107 N CARBON DIOXIDE (test code = CO2) 34.0 mmol/L 21-32 H ANION GAP (test code = GAP) 9.9 10-20 L GLUCOSE (test code = GLU) 118 mg/dL 74-106 H BLOOD UREA NITROGEN (test code = BUN) 39 mg/dL 7-18 H GLOMERULAR FILTRATION RATE (test code = GFR) 33 mL/min >=60 Estimated GFR by using Modified MDRD formula.Chronic kidney disease is defined as either kidney damageor GFR <60 mL/min/1.73 m2 for >3 months. CREATININE (test code = CREAT) 1.50 mg/dL 0.55-1.02 H Note change in reference range due to change in reagent. BUN/CREATININE RATIO (test code = BUN/CREA) 26.0 10-20 H TOTAL PROTEIN (test code = PROT) 8.0 gram/dL 6.4-8.2 N ALBUMIN (test code = ALB) 3.7 g/dL 3.4-5.0 N GLOBULIN (test code = GLOB) 4.3 gram/dL 2.7-4.2 H ALBUMIN/GLOBULIN RATIO (test code = A/G) 0.9 0.75-1.50 N CALCIUM (test code = CA) 10.1 mg/dL 8.5-10.1 N BILIRUBIN TOTAL (test code = BILT) 0.40 mg/dL 0.0-1.0 N SGOT/AST (test code = AST) 30 IUnit/L 15-37 N SGPT/ALT (test code = ALT) 36 IUnit/L 12-78 N ALKALINE PHOSPHATASE TOTAL (test code = ALKP) 92 IUnit/L 45-117 N Note change in reference range due to change in reagent. CBC W/AUTO [id number] 13:16:00* Test Item Value Reference Range Interpretation Comments WHITE BLOOD CELL (test code = WBC) 7.5 K/mm3 4.5-12.5 N RED BLOOD CELL (test code = RBC) 4.20 mill/mm3 3.7-5.2 N HEMOGLOBIN (test code = HGB) 11.9 gram/dL 11.5-15.5 N HEMATOCRIT (test code = HCT) 36.7 % 36.0-46.0 N MEAN CELL VOLUME (test code = MCV) 87.4 fL 80-98 N MEAN CELL HGB (test code = MCH) 28.3 picogram 27.0-33.0 N MEAN CELL HGB CONCETRATION (test code = MCHC) 32.4 gram/dL 33.0-36. 0 L RED CELL DISTRIBUTION WIDTH (test code = RDW) 13.7 % 11.6-16. 2 N RED CELL DISTRIBUTION WIDTH SD (test code = RDW-SD) 43.5 fL 37 .0-51.0 N PLATELET COUNT (test code = PLT) 213 K/mm3 150-450 N MEAN PLATELET VOLUME (test code = MPV) 11.2 fL 6.7-11.0 H NEUTROPHIL % (test code = NT%) 61.7 % 39.0-69.0 N IMMATURE GRANULOCYTE % (test code = IG%) 0.5 % 0.0-5.0 N LYMPHOCYTE % (test code = LY%) 24.1 % 25.0-55.0 L MONOCYTE % (test code = MO%) 10.9 % 0.0-10.0 H EOSINOPHIL % (test code = EO%) 2.1 % 0.0-5.0 N BASOPHIL % (test code = BA%) 0.7 % 0.0-1.0 N NUCLEATED RBC % (test code = NRBC%) 0.0 % 0-0 N NEUTROPHIL # (test code = NT#) 4.63 K/mm3 1.8-7.7 N IMMATURE GRANULOCYTE # (test code = IG#) 0.04 x10 3/uL 0-0.03 H LYMPHOCYTE # (test code = LY#) 1.81 K/mm3 1.0-5.0 N MONOCYTE # (test code = MO#) 0.82 K/mm3 0-0.8 H EOSINOPHIL # (test code = EO#) 0.16 K/mm3 0.0-0.5 N BASOPHIL # (test code = BA#) 0.05 K/mm3 0.0-0.2 N NUCLEATED RBC # (test code = NRBC#) 0.00 K/mm3 0.0-0.1 N MANUAL DIFF REQUIRED (test code = MDIFF) NO - XR CHEST 2 [id number] 13:25:00 [place]: O St: REG Name: BEKA KINGSLEY [facility] : 10/14/18 39 Age/S: 78/F [address] [facility] Unit #: [id number] Loc: [place] [address] Phys: Hawa Solomon MD Acct: [id number] Dis Date: Status: REG CLI PHONE #: [phone] Exam Date: 03/18/2019 1231 FAX #: [phone] Reason: J20.9 EXAMS: CPT CODE: [id number] XR CHEST 2 V [id number] REASON FOR EXAM: J20.9 Exam Order Date: 03/18/2019 12:15 PM Ordering M.D.: Hawa Nieto MD PROCEDURE: - XR CHEST 2 V COMPARISON: 2 view chest x-ray February 12, 2019 FINDINGS: The lungs are clear. There is no pleural effusion or pneumothorax. Pulmonary vasc ularity is within normal limits. Cardiomediastinal silhouette is m ildly prominent but stable in size. Postsurgical changes of CABG are redem onstrated. Left subclavian dual-lead pacemaker is present with leads in th e right atrium and right ventricle, similar to prior exam. T here are degenerative changes in the spine and acromioclavicular joints. T he visualized upper abdomen is within normal limits. IMP RESSION: No acute cardiopulmonary process. Location: [facility] at 1325 Reported and signed by: Tulio Carrion MD CC: Technologist: Ward Lopez RT(R) Trnscrd Date/Time/By: 03/18/2019 (6445) : By: [email or web address] Orig Print D/T: S: 03/18/2019 (0680) PAGE 1 Signed Report CHEST SINGLE (PORTABLE)2019-02-18 08:24:00 [place] [address] Patient Name: FITO MCCONNELL I MR #: [id number] : 1940 Age/Sex: 78/F Req #: [id number] Adm Physician: MARICARMEN REYNOLDS MD Ordered by: LAURENCE CLEVELAND MD Report #: [id number] Location: [facility] Room/Bed: [place] [address] Procedure: [id number] DX/C HEST SINGLE (PORTABLE) Exam Date: 02/18/19 Exam Time : 0530 REPORT STATUS: Signed [facility], 1 view, 02/18/2019. History: Shortness of breath. Comparis on: 02/17/2019. Findings: The cardiomediastinal silhouette and pulmonary va sculature are mildly prominent with hazy bilateral perihilar opacities. There is no focal consolidation. There is minimal blunting of the costophrenic sulci bilaterally consistent with small effusions. Left subclavian dual-lead pacer and median sternotomy wires are again noted. There are no acute osseous or sof t tissue abnormalities. Impression: Findings suggestive of mild CHF. Signed by: Larry Vela on 02/18/2019 8:27 AM Dictated By: LARRY VELA MD 6 Transcrib ed By: SHAUNNA on 02/18/19826 COPY TO: LAURENCE CLEVELAND MD CT CHEST [id number] 11:17:00 [place] [address] Patient Name: FITO MCCONNELL I MR #: [id number] : 1940 Age/Sex: 78/F Req #: [id number] Adm Physician: MARICARMEN REYNOLDS MD Ordered by: LARRY REYNOLDS DO Report #: [id number] Location: [facility] Room/Bed: [place] [address] Procedure: [id number] CT/ CT CHEST W Exam Date: 02/17/19 Exam Time: 1050 REPORT STATUS: Signed CT of the chest, PE protocol, with contrast. History: Chest pain, shortness of jessica ath Comparison: 02/06/2018. Technique: Multidetector thin collimatio n CT scanning of the chest was performed from the level of the apices to the u pper abdomen during the pulmonary arterial phase, after intravenous administra tion of contrast. Coronal and sagittal MIP reformations were obtained. R ADIATION DOSE: Total DLP: 533.45 mGy*cm Dose modulation, iterative reconstruction, and/or weight based adjustment of the mA/kV was utilized to r educe the radiation dose to as low as reasonably achievable. FINDINGS: There is adequate opacification of the pulmonary arteries to the level of the segmental arteries. The main pulmonary artery measures 3.1 cm in maximal diam eter. The pulmonary arteries distribute normally without evidence of a filling defect to the level of the segmental arteries to suggest pulmonary thrombi em bolism. Left-sided pacing device identified with 2 transvenous leads extend ing to the right atrium and ventricle. Watchman device identified within the l eft atrial appendage. The thoracic aorta is normal course and caliber with ath erosclerotic calcifications. The heart is enlarged, similar to the [facility] [place]. No abnormal pericardial fluid is present. There is no abnormal ax illary, mediastinal, or hilar lymph node enlargement. The trachea and proxi mal airways are patent. There are trace bilateral pleural effusions with assoc iated bibasilar atelectasis. Patchy groundglass opacities are identified bilat erally, more prominent within the upper lung zones. There is no evidence for c onsolidation or pneumothorax. The previously identified cavitary nodule within the left lower lobe now appears as a simple parenchymal cyst. A subcenti meter hypodensity is identified within the liver which is too small to definit ively characterize but appears stable from the prior examination. The remainin g visualized upper abdominal contents are unremarkable. Postsurgical change s from prior median sternotomy noted. The osseous structures demonstrate no ev idence for acute fracture or destructive process. There is stable asymmetry of the petrous musculature, unchanged prior examinations. The remaining extratho racic soft tissues are unremarkable. IMPRESSION: 1. No evidence of pulmonary thromboembolism the level of the segmental arteries. 2. Patchy groundglass opacities identified within the lungs which is nonspecific but can be seen in the setting of edema. An atypical infectious process could have a similar appearance. 3. Trace bilateral pleural effusions. 4. Stable ca rdiomegaly. Signed by: Dr. Jonathon Gresham MD on 02/17/2019 11:34 AM D ictated By: JONATHON GRESHAM MD 7256 COPY TO: LARRY REYNOLDS DO CHEST 2 [id number] 09:55:00 [facility] [place] [address] Patient Name: FITO MCCONNELL I MR #: [id number] : 1940 Age/Sex: 78/F Req #: [id number] Adm Physician: Ordered by: LARRY REYNOLDS DO Report #: [id number] Location: ER Room/Bed: Procedure: [id number] DX/ CHEST 2 VIEWS Exam Date: 02/17/19 Exam Time: 919 REPORT STATUS: Signed EXAM: CHEST 2 VIEWS DATE: 02/17/2019 9:10 AM INDICATION: Weakness COMPAR DAVIDSON: FINDINGS: Left-sided pacing device with 2 transvenous leads identified in stable position. Postsurgical changes from median sternotomy aga in noted. The trachea is midline. There are mildly increased bibasilar opac ities suggestive of atelectasis. There is no evidence for large focal consolid ation, pneumothorax, or significant pleural effusion. The cardiomediastin al silhouette is stable in appearance. Degenerative changes noted of the visua lized spine. No acute osseous abnormalities are identified. IMPRESSION: No acute cardiopulmonary process identified. Signed by: Dr. Jonathon waldrop MD on 02/17/2019 9:56 AM Dictated By: JONATHON GRESHAM MD 5 Transcribed By: SHAUNNA on 02/17/19955 COPY TO: LARRY REYNOLDS DO COMPREHENSIVE METABOLIC PANEL 2019-02-16 06:31:00* Test Item Value Reference Range Interpretation Comments SODIUM (test code = NA) 143 mmol/L 136-145 N POTASSIUM (test code = K) 3.4 mmol/L 3.5-5.1 L CHLORIDE (test code = CL) 106.0 mmol/L 98-107 N CARBON DIOXIDE (test code = CO2) 32.0 mmol/L 21-32 N ANION GAP (test code = GAP) 8.4 10-20 L GLUCOSE (test code = GLU) 146 mg/dL 74-106 H BLOOD UREA NITROGEN (test code = BUN) 18 mg/dL 7-18 N GLOMERULAR FILTRATION RATE (test code = GFR) 60 mL/min >=60 Estimated GFR by using Modified MDRD formula.Chronic kidney disease is defined as either kidney damageor GFR <60 mL/min/1.73 m2 for >3 months. CREATININE (test code = CREAT) 0.90 mg/dL 0.55-1.02 N Note change in reference range due to change in reagent. BUN/CREATININE RATIO (test code = BUN/CREA) 20.9 10-20 H TOTAL PROTEIN (test code = PROT) 6.2 gram/dL 6.4-8.2 L ALBUMIN (test code = ALB) 2.9 g/dL 3.4-5.0 L GLOBULIN (test code = GLOB) 3.3 gram/dL 2.7-4.2 N ALBUMIN/GLOBULIN RATIO (test code = A/G) 0.9 0.75-1.50 N CALCIUM (test code = CA) 8.5 mg/dL 8.5-10.1 N BILIRUBIN TOTAL (test code = BILT) 0.20 mg/dL 0.0-1.0 N SGOT/AST (test code = AST) 29 IUnit/L 15-37 N SGPT/ALT (test code = ALT) 33 IUnit/L 12-78 N ALKALINE PHOSPHATASE TOTAL (test code = ALKP) 87 IUnit/L 45-117 N Note change in reference range due to change in reagent. CBC W/AUTO [id number] 06:23:00* Test Item Value Reference Range Interpretation Comments WHITE BLOOD CELL (test code = WBC) 7.8 K/mm3 4.5-12.5 N RED BLOOD CELL (test code = RBC) 3.76 mill/mm3 3.7-5.2 N HEMOGLOBIN (test code = HGB) 10.8 gram/dL 11.5-15.5 L HEMATOCRIT (test code = HCT) 33.6 % 36.0-46.0 L MEAN CELL VOLUME (test code = MCV) 89.4 fL 80-98 N MEAN CELL HGB (test code = MCH) 28.7 picogram 27.0-33.0 N MEAN CELL HGB CONCETRATION (test code = MCHC) 32.1 gram/dL 33.0-36. 0 L RED CELL DISTRIBUTION WIDTH (test code = RDW) 13.8 % 11.6-16. 2 N RED CELL DISTRIBUTION WIDTH SD (test code = RDW-SD) 45.1 fL 37 .0-51.0 N PLATELET COUNT (test code = PLT) 153 K/mm3 150-450 N MEAN PLATELET VOLUME (test code = MPV) 11.9 fL 6.7-11.0 H NEUTROPHIL % (test code = NT%) 65.7 % 39.0-69.0 N IMMATURE GRANULOCYTE % (test code = IG%) 0.4 % 0.0-5.0 N LYMPHOCYTE % (test code = LY%) 18.1 % 25.0-55.0 L MONOCYTE % (test code = MO%) 13.0 % 0.0-10.0 H EOSINOPHIL % (test code = EO%) 2.2 % 0.0-5.0 N BASOPHIL % (test code = BA%) 0.6 % 0.0-1.0 N NUCLEATED RBC % (test code = NRBC%) 0.0 % 0-0 N NEUTROPHIL # (test code = NT#) 5.09 K/mm3 1.8-7.7 N IMMATURE GRANULOCYTE # (test code = IG#) 0.03 x10 3/uL 0-0.03 N LYMPHOCYTE # (test code = LY#) 1.40 K/mm3 1.0-5.0 N MONOCYTE # (test code = MO#) 1.01 K/mm3 0-0.8 H EOSINOPHIL # (test code = EO#) 0.17 K/mm3 0.0-0.5 N BASOPHIL # (test code = BA#) 0.05 K/mm3 0.0-0.2 N NUCLEATED RBC # (test code = NRBC#) 0.00 K/mm3 0.0-0.1 N MANUAL DIFF REQUIRED (test code = MDIFF) NO COMPREHENSIVE METABOLIC [id number] 06:20:00* Test Item Value Reference Range Interpretation Comments SODIUM (test code = NA) 143 mmol/L 136-145 N POTASSIUM (test code = K) 3.4 mmol/L 3.5-5.1 L CHLORIDE (test code = CL) 106.0 mmol/L 98-107 N CARBON DIOXIDE (test code = CO2) mmol/L 21-32 ANION GAP (test code = GAP) 10-20 GLUCOSE (test code = GLU) mg/dL 74-106 BLOOD UREA NITROGEN (test code = BUN) mg/dL 7-18 GLOMERULAR FILTRATION RATE (test code = GFR) mL/min >=60 CREATININE (test code = CREAT) mg/dL 0.55-1.02 BUN/CREATININE RATIO (test code = BUN/CREA) 10-20 TOTAL PROTEIN (test code = PROT) gram/dL 6.4-8.2 ALBUMIN (test code = ALB) g/dL 3.4-5.0 GLOBULIN (test code = GLOB) gram/dL 2.7-4.2 ALBUMIN/GLOBULIN RATIO (test code = A/G) 0.75-1.50 CALCIUM (test code = CA) mg/dL 8.5-10.1 BILIRUBIN TOTAL (test code = BILT) mg/dL 0.0-1.0 SGOT/AST (test code = AST) IUnit/L 15-37 SGPT/ALT (test code = ALT) IUnit/L 12-78 ALKALINE PHOSPHATASE TOTAL (test code = ALKP) IUnit/L 45-117 COAGULATION TIME [id number] 10:30:00* Test Item Value Reference Range Interpretation Comments COAGULATION TIME ACTIVATED (test code = ACT) 243 seconds 62.8-88.0 H PROTHROMBIN [id number] 09:27:00* Test Item Value Reference Range Interpretation Comments PROTHROMBIN TIME PATIENT (test code = PTP) 17.7 seconds 9.0-14.0 H INTERNATIONAL NORMAL RATIO (test code = INR) 1.5 0.8-1.2 H The therapeutic range for oral anticoagulant therapy formost indications is an international normalized ratio (INR)of between 2.0 and 3.0. The recommended therapeutic INRrange for various clinical situations is listed below: Clinical Situation INR range Pulmonary e mbolism treatment (2.0-3.0)Venous thrombosis treatmentVenous thrombosis prophylaxis (high risk surgery)Prevention of systemic embolism from: Acute myocardial infarction Valvular heart disease Atrial fibrillation Mechanical prosthetic heart valves (2.5-3.5) IS PATIENT ON ANTICOAGULANTS? YLIST ANTICOAGULANTS COUMADINTHROMBOPLASTIN TIME [id number] 09:27:00* Test Item Value Reference Range Interpretation Comments THROMBOPLASTIN TIME PARTIAL (test code = PTT) 42.1 seconds 25.0-36. 5 H IS PATIENT ON ANTICOAGULANTS? YLIST ANTICOAGULANTS COUMADINCOMPREHENSIVE METABOLIC [id number] 12:19:00* Test Item Value Reference Range Interpretation Comments SODIUM (test code = NA) 143 mmol/L 136-145 N POTASSIUM (test code = K) 3.1 mmol/L 3.5-5.1 L CHLORIDE (test code = CL) 104.0 mmol/L 98-107 N CARBON DIOXIDE (test code = CO2) 32.0 mmol/L 21-32 N ANION GAP (test code = GAP) 10.1 10-20 N GLUCOSE (test code = GLU) 118 mg/dL 74-106 H BLOOD UREA NITROGEN (test code = BUN) 28 mg/dL 7-18 H GLOMERULAR FILTRATION RATE (test code = GFR) 48 mL/min >=60 Estimated GFR by using Modified MDRD formula.Chronic kidney disease is defined as either kidney damageor GFR <60 mL/min/1.73 m2 for >3 months. CREATININE (test code = CREAT) 1.10 mg/dL 0.55-1.02 H Note change in reference range due to change in reagent. BUN/CREATININE RATIO (test code = BUN/CREA) 24.6 10-20 H TOTAL PROTEIN (test code = PROT) 7.6 gram/dL 6.4-8.2 N ALBUMIN (test code = ALB) 3.6 g/dL 3.4-5.0 N GLOBULIN (test code = GLOB) 4.0 gram/dL 2.7-4.2 N ALBUMIN/GLOBULIN RATIO (test code = A/G) 0.9 0.75-1.50 N CALCIUM (test code = CA) 9.2 mg/dL 8.5-10.1 N BILIRUBIN TOTAL (test code = BILT) 0.30 mg/dL 0.0-1.0 N SGOT/AST (test code = AST) 34 IUnit/L 15-37 N SGPT/ALT (test code = ALT) 45 IUnit/L 12-78 N ALKALINE PHOSPHATASE TOTAL (test code = ALKP) 111 IUnit/L 45-117 N Note change in reference range due to change in reagent. LIPID PROFILE (CORONARY RISK)2019-02-12 12:19:00* Test Item Value Reference Range Interpretation Comments TRIGLYCERIDES (test code = TRIG) 149 mg/dL 20-150 N CHOLESTEROL (test code = CHOL) 210 mg/dL 0-200 H CHOLESTEROL/HDL RATIO (test code = CHOLHDL) 3.0 RATIO 0-4.9 N RISK ASSOCIATED WITH CHOL/HDL RATIOS: Risk Male Female1/2 AVERAGE 3.43 3.27AVERAGE 4.97 4.442X AVERAGE 9.55 7.053X AVERAGE 23.39 11.04 REFERENCE VALUE IS RELATED TO RISK LEVELS ASRECOMMENDED BY THE MARCELLUS. HEART, LUNG, AND BLOOD INST. HDL CHOLESTEROL (test code = HDL) 60 mg/dL 40-60 N LIPOPROTEIN LDL (test code = LDL) 128 mg/dL 100-129 N RN PERSONNEL, CONTACT PHYSICIAN IMMEDIATELY IF THIS IS A STROKE, AMI OR CAROTID STENOSIS PATIENT WHEN THE LDL >100 (1ST OCCURENCE, THIS ADMISSION) Reference Interval: mg/dL mmol/L Optimal <100 <2.6Near/above optimal 100-129 2.6- 3.3Borderline High 130-159 3.4-4.1High 160-189 4.1-4.9Very High >=190 >=4.9========= This LDL result is a direct measurement.========= THYROID STIMULATING [id number] 12:19:00* Test Item Value Reference Range Interpretation Comments THYROID STIMULATING HORMONE (test code = TSH) 2.370 uIU/mL 0.36-3.7 4 N TSH REFERENCE RANGES: EUTHYROID: 0.35 - 4.3 mIU/mL HYPO : > 5.5 mIU/mL HYPER : < 0.35 mIU/mL COMPREHENSIVE METABOLIC [id number] 11:49:00* Test Item Value Reference Range Interpretation Comments SODIUM (test code = NA) 143 mmol/L 136-145 N POTASSIUM (test code = K) 3.1 mmol/L 3.5-5.1 L CHLORIDE (test code = CL) 104.0 mmol/L 98-107 N CARBON DIOXIDE (test code = CO2) mmol/L 21-32 ANION GAP (test code = GAP) 10-20 GLUCOSE (test code = GLU) mg/dL 74-106 BLOOD UREA NITROGEN (test code = BUN) mg/dL 7-18 GLOMERULAR FILTRATION RATE (test code = GFR) mL/min >=60 CREATININE (test code = CREAT) mg/dL 0.55-1.02 BUN/CREATININE RATIO (test code = BUN/CREA) 10-20 TOTAL PROTEIN (test code = PROT) gram/dL 6.4-8.2 ALBUMIN (test code = ALB) g/dL 3.4-5.0 GLOBULIN (test code = GLOB) gram/dL 2.7-4.2 ALBUMIN/GLOBULIN RATIO (test code = A/G) 0.75-1.50 CALCIUM (test code = CA) mg/dL 8.5-10.1 BILIRUBIN TOTAL (test code = BILT) mg/dL 0.0-1.0 SGOT/AST (test code = AST) IUnit/L 15-37 SGPT/ALT (test code = ALT) IUnit/L 12-78 ALKALINE PHOSPHATASE TOTAL (test code = ALKP) IUnit/L 45-117 LIPID PROFILE (CORONARY RISK)2019-02-12 11:49:00* Test Item Value Reference Range Interpretation Comments TRIGLYCERIDES (test code = TRIG) mg/dL 20-150 CHOLESTEROL (test code = CHOL) mg/dL 0-200 CHOLESTEROL/HDL RATIO (test code = CHOLHDL) RATIO 0-4.9 HDL CHOLESTEROL (test code = HDL) mg/dL 40-60 LIPOPROTEIN LDL (test code = LDL) mg/dL 100-129 THYROID STIMULATING [id number] 11:49:00* Test Item Value Reference Range Interpretation Comments THYROID STIMULATING HORMONE (test code = TSH) uIU/mL 0.36-3.7 4 PROTHROMBIN [id number] 11:22:00* Test Item Value Reference Range Interpretation Comments PROTHROMBIN TIME PATIENT (test code = PTP) 11.9 seconds 9.0-14.0 N INTERNATIONAL NORMAL RATIO (test code = INR) 1.0 0.8-1.2 N The therapeutic range for oral anticoagulant therapy formost indications is an international normalized ratio (INR)of between 2.0 and 3.0. The recommended therapeutic INRrange for various clinical situations is listed below: Clinical Situation INR range Pulmonary e mbolism treatment (2.0-3.0)Venous thrombosis treatmentVenous thrombosis prophylaxis (high risk surgery)Prevention of systemic embolism from: Acute myocardial infarction Valvular heart disease Atrial fibrillation Mechanical prosthetic heart valves (2.5-3.5) THROMBOPLASTIN TIME [id number] 11:22:00* Test Item Value Reference Range Interpretation Comments THROMBOPLASTIN TIME PARTIAL (test code = PTT) 35.8 seconds 25.0-36. 5 N CBC W/AUTO [id number] 11:19:00* Test Item Value Reference Range Interpretation Comments WHITE BLOOD CELL (test code = WBC) 6.6 K/mm3 4.5-12.5 N RED BLOOD CELL (test code = RBC) 4.33 mill/mm3 3.7-5.2 N HEMOGLOBIN (test code = HGB) 12.4 gram/dL 11.5-15.5 N HEMATOCRIT (test code = HCT) 39.6 % 36.0-46.0 N MEAN CELL VOLUME (test code = MCV) 91.5 fL 80-98 N MEAN CELL HGB (test code = MCH) 28.6 picogram 27.0-33.0 N MEAN CELL HGB CONCETRATION (test code = MCHC) 31.3 gram/dL 33.0-36. 0 L RED CELL DISTRIBUTION WIDTH (test code = RDW) 13.6 % 11.6-16. 2 N RED CELL DISTRIBUTION WIDTH SD (test code = RDW-SD) 45.9 fL 37 .0-51.0 N PLATELET COUNT (test code = PLT) 169 K/mm3 150-450 N MEAN PLATELET VOLUME (test code = MPV) 11.6 fL 6.7-11.0 H NEUTROPHIL % (test code = NT%) 58.2 % 39.0-69.0 N IMMATURE GRANULOCYTE % (test code = IG%) 0.3 % 0.0-5.0 N LYMPHOCYTE % (test code = LY%) 24.2 % 25.0-55.0 L MONOCYTE % (test code = MO%) 13.5 % 0.0-10.0 H EOSINOPHIL % (test code = EO%) 3.2 % 0.0-5.0 N BASOPHIL % (test code = BA%) 0.6 % 0.0-1.0 N NUCLEATED RBC % (test code = NRBC%) 0.0 % 0-0 N NEUTROPHIL # (test code = NT#) 3.82 K/mm3 1.8-7.7 N IMMATURE GRANULOCYTE # (test code = IG#) 0.02 x10 3/uL 0-0.03 N LYMPHOCYTE # (test code = LY#) 1.59 K/mm3 1.0-5.0 N MONOCYTE # (test code = MO#) 0.89 K/mm3 0-0.8 H EOSINOPHIL # (test code = EO#) 0.21 K/mm3 0.0-0.5 N BASOPHIL # (test code = BA#) 0.04 K/mm3 0.0-0.2 N NUCLEATED RBC # (test code = NRBC#) 0.00 K/mm3 0.0-0.1 N MANUAL DIFF REQUIRED (test code = MDIFF) NO CBC W/AUTO [id number] 11:07:00* Test Item Value Reference Range Interpretation Comments WHITE BLOOD CELL (test code = WBC) K/mm3 4.5-12.5 RED BLOOD CELL (test code = RBC) mill/mm3 3.7-5.2 HEMOGLOBIN (test code = HGB) 12.4 gram/dL 11.5-15.5 N HEMATOCRIT (test code = HCT) 39.6 % 36.0-46.0 N MEAN CELL VOLUME (test code = MCV) fL 80-98 MEAN CELL HGB (test code = MCH) picogram 27.0-33.0 MEAN CELL HGB CONCETRATION (test code = MCHC) gram/dL 33.0-36. 0 RED CELL DISTRIBUTION WIDTH (test code = RDW) % 11.6-16. 2 RED CELL DISTRIBUTION WIDTH SD (test code = RDW-SD) fL 37 .0-51.0 PLATELET COUNT (test code = PLT) K/mm3 150-450 MEAN PLATELET VOLUME (test code = MPV) fL 6.7-11.0 NEUTROPHIL % (test code = NT%) % 39.0-69.0 IMMATURE GRANULOCYTE % (test code = IG%) % 0.0-5.0 LYMPHOCYTE % (test code = LY%) % 25.0-55.0 MONOCYTE % (test code = MO%) % 0.0-10.0 EOSINOPHIL % (test code = EO%) % 0.0-5.0 BASOPHIL % (test code = BA%) % 0.0-1.0 NEUTROPHIL # (test code = NT#) K/mm3 1.8-7.7 LYMPHOCYTE # (test code = LY#) K/mm3 1.0-5.0 MONOCYTE # (test code = MO#) K/mm3 0-0.8 EOSINOPHIL # (test code = EO#) K/mm3 0.0-0.5 BASOPHIL # (test code = BA#) K/mm3 0.0-0.2 - XR CHEST 2 [id number] 09:34:00 FAX: Tee Martinez MD [phone] [place]: O St: PRE Name: BEKA KINGSLEY [facility] : [birth year] Age/S: 78/F Baldemar Marcos yumiko Unit #: [id number] Loc: [place] [address] Phys: Tee Childress MD Acct: [id number] Dis Date: Status: PRE SDC PHONE #: [phone] Exam Date: 02/12/2019919 FAX #: [phone] Reason: PRE OP EXAMS: CPT CODE: [id number] XR CHEST 2 V [id number] REASON FOR EXAM: PRE OP Exam Order Date: 02/12/2019 8:58 AM Ordering M.D.: Tee Childress MD PROCEDURE: - XR CHEST 2 V COMPARISON: 2 view chest x-ray January 07, 2019 FINDINGS: The lungs are clear. There is no pleural effusion or pneumothorax. Pulmonary vascu larity is within normal limits. Cardiomediastinal silhouette is no rmal in size for technique. Postsurgical changes of CABG are noted. Left s ubclavian dual-lead pacemaker is unchanged in position. Ther e are degenerative changes throughout the spine and in the acromioclavicul ar joints. Sternotomy wires are unchanged. The visualized upper ab domen is within normal limits. IMPRESSION: No ac [place] tribe cardiopulmonary process or change from prior exam. Locatio n: [facility] at 0934 Reported and signed by: Tulio Carrion MD CC: Tee Mcneil MD Technologist: Nayana Morrison Trnscrd Date/Time/By: 02/12/2019 (933) : By: [email or web address] Orig Print D/T: S: 02/12/2019 (8792) PAGE 1 Signed Report COMPREHENSIVE METABOLIC [id number] 14:39:00* Test Item Value Reference Range Interpretation Comments SODIUM (test code = NA) 142 mmol/L 136-145 N POTASSIUM (test code = K) 3.4 mmol/L 3.5-5.1 L CHLORIDE (test code = CL) 102.0 mmol/L 98-107 N CARBON DIOXIDE (test code = CO2) 32.0 mmol/L 21-32 N ANION GAP (test code = GAP) 11.4 10-20 N GLUCOSE (test code = GLU) 146 mg/dL 74-106 H BLOOD UREA NITROGEN (test code = BUN) 31 mg/dL 7-18 H GLOMERULAR FILTRATION RATE (test code = GFR) 48 mL/min >=60 Estimated GFR by using Modified MDRD formula.Chronic kidney disease is defined as either kidney damageor GFR <60 mL/min/1.73 m2 for >3 months. CREATININE (test code = CREAT) 1.10 mg/dL 0.55-1.02 H Note change in reference range due to change in reagent. BUN/CREATININE RATIO (test code = BUN/CREA) 28.2 10-20 H TOTAL PROTEIN (test code = PROT) 7.8 gram/dL 6.4-8.2 N ALBUMIN (test code = ALB) 3.8 g/dL 3.4-5.0 N GLOBULIN (test code = GLOB) 4.0 gram/dL 2.7-4.2 N ALBUMIN/GLOBULIN RATIO (test code = A/G) 1.0 0.75-1.50 N CALCIUM (test code = CA) 10.2 mg/dL 8.5-10.1 H BILIRUBIN TOTAL (test code = BILT) 0.40 mg/dL 0.0-1.0 N SGOT/AST (test code = AST) 27 IUnit/L 15-37 N SGPT/ALT (test code = ALT) 39 IUnit/L 12-78 N ALKALINE PHOSPHATASE TOTAL (test code = ALKP) 109 IUnit/L 45-117 N Note change in reference range due to change in reagent. LIPID PROFILE (CORONARY RISK)2019-01-07 14:39:00* Test Item Value Reference Range Interpretation Comments TRIGLYCERIDES (test code = TRIG) 314 mg/dL 20-150 H CHOLESTEROL (test code = CHOL) 216 mg/dL 0-200 H CHOLESTEROL/HDL RATIO (test code = CHOLHDL) 3.0 RATIO 0-4.9 N RISK ASSOCIATED WITH CHOL/HDL RATIOS: Risk Male Female1/2 AVERAGE 3.43 3.27AVERAGE 4.97 4.442X AVERAGE 9.55 7.053X AVERAGE 23.39 11.04 REFERENCE VALUE IS RELATED TO RISK LEVELS ASRECOMMENDED BY THE MARCELLUS. HEART, LUNG, AND BLOOD INST. HDL CHOLESTEROL (test code = HDL) 60 mg/dL 40-60 N LIPOPROTEIN LDL (test code = LDL) 120 mg/dL 100-129 N RN PERSONNEL, CONTACT PHYSICIAN IMMEDIATELY IF THIS IS A STROKE, AMI OR CAROTID STENOSIS PATIENT WHEN THE LDL >100 (1ST OCCURENCE, THIS ADMISSION) Reference Interval: mg/dL mmol/L Optimal <100 <2.6Near/above optimal 100-129 2.6- 3.3Borderline High 130-159 3.4-4.1High 160-189 4.1-4.9Very High >=190 >=4.9========= This LDL result is a direct measurement.========= THYROID STIMULATING [id number] 14:39:00* Test Item Value Reference Range Interpretation Comments THYROID STIMULATING HORMONE (test code = TSH) 2.110 uIU/mL 0.36-3.7 4 N TSH REFERENCE RANGES: EUTHYROID: 0.35 - 4.3 mIU/mL HYPO : > 5.5 mIU/mL HYPER : < 0.35 mIU/mL - XR CHEST 2 [id number] 14:27:00 FAX: Julieta Martinez [phone] [place]: O St: PRE Name: FITO KINGSLEY [facility] : 10/14/18 39 Age/S: 78/F [address] Unit #: [id number] Loc: [place] [address] Phys: Julieta Childress MD Acct: [id number] Dis Date: Status: PRE SDC PHONE #: [phone] Exam Date: 01/07/2019 1409 FAX #: [phone] Reason: PRE OP EXAMS: CPT CODE: [id number] XR CHEST 2 V [id number] HISTORY: Preop. COMP ARISON: November 11, 2018. Location: [facility]. AP and lat eral view of the chest: No acute infiltrates, effusion or congesti on. Lung scarring. Left ICD is unchanged. Cardiac silhouette is mildly enl arged. Apical pleural thickening. IMPRESSION: No acute infiltrates, effusion or congestion. Electronically S igned by Barby Ortez on 01/07/2019 at 1427 Reporte d and signed by: Jay Ortez M.D. CC: Julieta Childress MD Technologist: RT Enid(R) Trnscrd Date/Time/By: 01/07/2019 (1426) : By: Rose MontoyaTH4 Orig Print D/T: S: 01/07/2019 (6572) PAGE 1 Signed Report COMPREHENSIVE METABOLIC [id number] 14:24:00* Test Item Value Reference Range Interpretation Comments SODIUM (test code = NA) 142 mmol/L 136-145 N POTASSIUM (test code = K) 3.4 mmol/L 3.5-5.1 L CHLORIDE (test code = CL) 102.0 mmol/L 98-107 N CARBON DIOXIDE (test code = CO2) mmol/L 21-32 ANION GAP (test code = GAP) 10-20 GLUCOSE (test code = GLU) mg/dL 74-106 BLOOD UREA NITROGEN (test code = BUN) mg/dL 7-18 GLOMERULAR FILTRATION RATE (test code = GFR) mL/min >=60 CREATININE (test code = CREAT) mg/dL 0.55-1.02 BUN/CREATININE RATIO (test code = BUN/CREA) 10-20 TOTAL PROTEIN (test code = PROT) gram/dL 6.4-8.2 ALBUMIN (test code = ALB) g/dL 3.4-5.0 GLOBULIN (test code = GLOB) gram/dL 2.7-4.2 ALBUMIN/GLOBULIN RATIO (test code = A/G) 0.75-1.50 CALCIUM (test code = CA) mg/dL 8.5-10.1 BILIRUBIN TOTAL (test code = BILT) mg/dL 0.0-1.0 SGOT/AST (test code = AST) IUnit/L 15-37 SGPT/ALT (test code = ALT) IUnit/L 12-78 ALKALINE PHOSPHATASE TOTAL (test code = ALKP) IUnit/L 45-117 LIPID PROFILE (CORONARY RISK)2019-01-07 14:24:00* Test Item Value Reference Range Interpretation Comments TRIGLYCERIDES (test code = TRIG) mg/dL 20-150 CHOLESTEROL (test code = CHOL) mg/dL 0-200 CHOLESTEROL/HDL RATIO (test code = CHOLHDL) RATIO 0-4.9 HDL CHOLESTEROL (test code = HDL) mg/dL 40-60 LIPOPROTEIN LDL (test code = LDL) mg/dL 100-129 THYROID STIMULATING [id number] 14:24:00* Test Item Value Reference Range Interpretation Comments THYROID STIMULATING HORMONE (test code = TSH) uIU/mL 0.36-3.7 4 PROTHROMBIN [id number] 13:52:00* Test Item Value Reference Range Interpretation Comments PROTHROMBIN TIME PATIENT (test code = PTP) 14.3 seconds 9.0-14.0 H INTERNATIONAL NORMAL RATIO (test code = INR) 1.2 0.8-1.2 N The therapeutic range for oral anticoagulant therapy formost indications is an international normalized ratio (INR)of between 2.0 and 3.0. The recommended therapeutic INRrange for various clinical situations is listed below: Clinical Situation INR range Pulmonary e mbolism treatment (2.0-3.0)Venous thrombosis treatmentVenous thrombosis prophylaxis (high risk surgery)Prevention of systemic embolism from: Acute myocardial infarction Valvular heart disease Atrial fibrillation Mechanical prosthetic heart valves (2.5-3.5) THROMBOPLASTIN TIME [id number] 13:52:00* Test Item Value Reference Range Interpretation Comments THROMBOPLASTIN TIME PARTIAL (test code = PTT) 39.7 seconds 25.0-36. 5 H CBC W/AUTO [id number] 13:46:00* Test Item Value Reference Range Interpretation Comments WHITE BLOOD CELL (test code = WBC) 8.7 K/mm3 4.5-12.5 N RED BLOOD CELL (test code = RBC) 4.35 mill/mm3 3.7-5.2 N HEMOGLOBIN (test code = HGB) 12.6 gram/dL 11.5-15.5 N HEMATOCRIT (test code = HCT) 39.6 % 36.0-46.0 N MEAN CELL VOLUME (test code = MCV) 91.0 fL 80-98 N MEAN CELL HGB (test code = MCH) 29.0 picogram 27.0-33.0 N MEAN CELL HGB CONCETRATION (test code = MCHC) 31.8 gram/dL 33.0-36. 0 L RED CELL DISTRIBUTION WIDTH (test code = RDW) 13.6 % 11.6-16. 2 N RED CELL DISTRIBUTION WIDTH SD (test code = RDW-SD) 45.4 fL 37 .0-51.0 N PLATELET COUNT (test code = PLT) 196 K/mm3 150-450 N MEAN PLATELET VOLUME (test code = MPV) 10.9 fL 6.7-11.0 N NEUTROPHIL % (test code = NT%) 62.3 % 39.0-69.0 N IMMATURE GRANULOCYTE % (test code = IG%) 0.3 % 0.0-5.0 N LYMPHOCYTE % (test code = LY%) 21.6 % 25.0-55.0 L MONOCYTE % (test code = MO%) 11.6 % 0.0-10.0 H EOSINOPHIL % (test code = EO%) 3.4 % 0.0-5.0 N BASOPHIL % (test code = BA%) 0.8 % 0.0-1.0 N NUCLEATED RBC % (test code = NRBC%) 0.0 % 0-0 N NEUTROPHIL # (test code = NT#) 5.44 K/mm3 1.8-7.7 N IMMATURE GRANULOCYTE # (test code = IG#) 0.03 x10 3/uL 0-0.03 N LYMPHOCYTE # (test code = LY#) 1.89 K/mm3 1.0-5.0 N MONOCYTE # (test code = MO#) 1.01 K/mm3 0-0.8 H EOSINOPHIL # (test code = EO#) 0.30 K/mm3 0.0-0.5 N BASOPHIL # (test code = BA#) 0.07 K/mm3 0.0-0.2 N NUCLEATED RBC # (test code = NRBC#) 0.00 K/mm3 0.0-0.1 N MANUAL DIFF REQUIRED (test code = MDIFF) NO B-TYPE NATRIURETIC [id number] 15:41:00* Test Item Value Reference Range Interpretation Comments B-TYPE NATRIURETIC PEPTIDE (test code = BNP) 191.90 pgram/mL 0-100 H COMPREHENSIVE METABOLIC [id number] 15:37:00* Test Item Value Reference Range Interpretation Comments SODIUM (test code = NA) 144 mmol/L 136-145 N POTASSIUM (test code = K) 3.6 mmol/L 3.5-5.1 N CHLORIDE (test code = CL) 107.0 mmol/L 98-107 N CARBON DIOXIDE (test code = CO2) 31.0 mmol/L 21-32 N ANION GAP (test code = GAP) 9.6 10-20 L GLUCOSE (test code = GLU) 121 mg/dL 74-106 H BLOOD UREA NITROGEN (test code = BUN) 15 mg/dL 7-18 N GLOMERULAR FILTRATION RATE (test code = GFR) 53 mL/min >=60 Estimated GFR by using Modified MDRD formula.Chronic kidney disease is defined as either kidney damageor GFR <60 mL/min/1.73 m2 for >3 months. CREATININE (test code = CREAT) 1.00 mg/dL 0.55-1.02 N Note change in reference range due to change in reagent. BUN/CREATININE RATIO (test code = BUN/CREA) 15.0 10-20 N TOTAL PROTEIN (test code = PROT) 7.5 gram/dL 6.4-8.2 N ALBUMIN (test code = ALB) 3.6 g/dL 3.4-5.0 N GLOBULIN (test code = GLOB) 3.9 gram/dL 2.7-4.2 N ALBUMIN/GLOBULIN RATIO (test code = A/G) 0.9 0.75-1.50 N CALCIUM (test code = CA) 9.7 mg/dL 8.5-10.1 N BILIRUBIN TOTAL (test code = BILT) 0.40 mg/dL 0.0-1.0 N SGOT/AST (test code = AST) 41 IUnit/L 15-37 H SGPT/ALT (test code = ALT) 50 IUnit/L 12-78 N ALKALINE PHOSPHATASE TOTAL (test code = ALKP) 129 IUnit/L 45-117 H Note change in reference range due to change in reagent. COMPREHENSIVE METABOLIC [id number] 15:27:00* Test Item Value Reference Range Interpretation Comments SODIUM (test code = NA) 144 mmol/L 136-145 N POTASSIUM (test code = K) 3.6 mmol/L 3.5-5.1 N CHLORIDE (test code = CL) 107.0 mmol/L 98-107 N CARBON DIOXIDE (test code = CO2) mmol/L 21-32 ANION GAP (test code = GAP) 10-20 GLUCOSE (test code = GLU) mg/dL 74-106 BLOOD UREA NITROGEN (test code = BUN) mg/dL 7-18 GLOMERULAR FILTRATION RATE (test code = GFR) mL/min >=60 CREATININE (test code = CREAT) mg/dL 0.55-1.02 BUN/CREATININE RATIO (test code = BUN/CREA) 10-20 TOTAL PROTEIN (test code = PROT) gram/dL 6.4-8.2 ALBUMIN (test code = ALB) g/dL 3.4-5.0 GLOBULIN (test code = GLOB) gram/dL 2.7-4.2 ALBUMIN/GLOBULIN RATIO (test code = A/G) 0.75-1.50 CALCIUM (test code = CA) mg/dL 8.5-10.1 BILIRUBIN TOTAL (test code = BILT) mg/dL 0.0-1.0 SGOT/AST (test code = AST) IUnit/L 15-37 SGPT/ALT (test code = ALT) IUnit/L 12-78 ALKALINE PHOSPHATASE TOTAL (test code = ALKP) IUnit/L 45-117 PROTHROMBIN [id number] 15:25:00* Test Item Value Reference Range Interpretation Comments PROTHROMBIN TIME PATIENT (test code = PTP) 20.5 seconds 9.0-14.0 H INTERNATIONAL NORMAL RATIO (test code = INR) 1.7 0.8-1.2 H The therapeutic range for oral anticoagulant therapy formost indications is an international normalized ratio (INR)of between 2.0 and 3.0. The recommended therapeutic INRrange for various clinical situations is listed below: Clinical Situation INR range Pulmonary e mbolism treatment (2.0-3.0)Venous thrombosis treatmentVenous thrombosis prophylaxis (high risk surgery)Prevention of systemic embolism from: Acute myocardial infarction Valvular heart disease Atrial fibrillation Mechanical prosthetic heart valves (2.5-3.5) CBC W/AUTO [id number] 15:13:00* Test Item Value Reference Range Interpretation Comments WHITE BLOOD CELL (test code = WBC) 9.0 K/mm3 4.5-12.5 N RED BLOOD CELL (test code = RBC) 4.08 mill/mm3 3.7-5.2 N HEMOGLOBIN (test code = HGB) 11.7 gram/dL 11.5-15.5 N HEMATOCRIT (test code = HCT) 36.9 % 36.0-46.0 N MEAN CELL VOLUME (test code = MCV) 90.4 fL 80-98 N MEAN CELL HGB (test code = MCH) 28.7 picogram 27.0-33.0 N MEAN CELL HGB CONCETRATION (test code = MCHC) 31.7 gram/dL 33.0-36. 0 L RED CELL DISTRIBUTION WIDTH (test code = RDW) 14.6 % 11.6-16. 2 N RED CELL DISTRIBUTION WIDTH SD (test code = RDW-SD) 48.1 fL 37 .0-51.0 N PLATELET COUNT (test code = PLT) 182 K/mm3 150-450 N MEAN PLATELET VOLUME (test code = MPV) 11.7 fL 6.7-11.0 H NEUTROPHIL % (test code = NT%) 69.7 % 39.0-69.0 H IMMATURE GRANULOCYTE % (test code = IG%) 0.6 % 0.0-5.0 N LYMPHOCYTE % (test code = LY%) 17.0 % 25.0-55.0 L MONOCYTE % (test code = MO%) 10.6 % 0.0-10.0 H EOSINOPHIL % (test code = EO%) 1.5 % 0.0-5.0 N BASOPHIL % (test code = BA%) 0.6 % 0.0-1.0 N NUCLEATED RBC % (test code = NRBC%) 0.0 % 0-0 N NEUTROPHIL # (test code = NT#) 6.25 K/mm3 1.8-7.7 N IMMATURE GRANULOCYTE # (test code = IG#) 0.05 x10 3/uL 0-0.03 H LYMPHOCYTE # (test code = LY#) 1.52 K/mm3 1.0-5.0 N MONOCYTE # (test code = MO#) 0.95 K/mm3 0-0.8 H EOSINOPHIL # (test code = EO#) 0.13 K/mm3 0.0-0.5 N BASOPHIL # (test code = BA#) 0.05 K/mm3 0.0-0.2 N NUCLEATED RBC # (test code = NRBC#) 0.00 K/mm3 0.0-0.1 N MANUAL DIFF REQUIRED (test code = MDIFF) NO CBC W/AUTO [id number] 15:11:00* Test Item Value Reference Range Interpretation Comments WHITE BLOOD CELL (test code = WBC) K/mm3 4.5-12.5 RED BLOOD CELL (test code = RBC) mill/mm3 3.7-5.2 HEMOGLOBIN (test code = HGB) 11.7 gram/dL 11.5-15.5 N HEMATOCRIT (test code = HCT) 36.9 % 36.0-46.0 N MEAN CELL VOLUME (test code = MCV) fL 80-98 MEAN CELL HGB (test code = MCH) picogram 27.0-33.0 MEAN CELL HGB CONCETRATION (test code = MCHC) gram/dL 33.0-36. 0 RED CELL DISTRIBUTION WIDTH (test code = RDW) % 11.6-16. 2 RED CELL DISTRIBUTION WIDTH SD (test code = RDW-SD) fL 37 .0-51.0 PLATELET COUNT (test code = PLT) K/mm3 150-450 MEAN PLATELET VOLUME (test code = MPV) fL 6.7-11.0 NEUTROPHIL % (test code = NT%) % 39.0-69.0 IMMATURE GRANULOCYTE % (test code = IG%) % 0.0-5.0 LYMPHOCYTE % (test code = LY%) % 25.0-55.0 MONOCYTE % (test code = MO%) % 0.0-10.0 EOSINOPHIL % (test code = EO%) % 0.0-5.0 BASOPHIL % (test code = BA%) % 0.0-1.0 NEUTROPHIL # (test code = NT#) K/mm3 1.8-7.7 LYMPHOCYTE # (test code = LY#) K/mm3 1.0-5.0 MONOCYTE # (test code = MO#) K/mm3 0-0.8 EOSINOPHIL # (test code = EO#) K/mm3 0.0-0.5 BASOPHIL # (test code = BA#) K/mm3 0.0-0.2 - XR CHEST 2 [id number] 14:20:00 [place]: [address]: REG Name: BEKA KINGSLEY [facility] : 10/14/18 39 Age/S: 78/F [address] Unit #: [id number] Loc: [place] [address] Phys: Hawa Solomon MD Acct: [id number] Dis Date: Status: REG CLI PHONE #: [phone] Exam Date: 11/11/2018 1349 FAX #: [phone] Reason: I50.9 EXAMS: CPT CODE: [id number] XR CHEST 2 V 15535 REASON FOR EXAM: I50.9 Exam Order Date: 11/11/2018 1:30 PM Ordering M.D.: Hawa Nieto MD PROCEDURE: - XR CHEST 2 V COMPARISON: 2 view chest x-ray May 29, 2018 FINDINGS: The lungs are clear. There is no pleural effusion or pneumothorax. Pulmonary vascula rity is within normal limits. Post surgical changes. Left subclavi an dual-lead pacemaker is unchanged with leads in the right atrium and rig ht ventricle. Degenerative changes are present in the spine and ac romioclavicular joints. The visualized upper abdomen is with in normal limits. IMPRESSION: No acute cardiopul monary process. Electronically Signed by Tulio Carrion MD on 9 at 1420 Reported and signed by: Tulio Carrion MD CC: Technologist: RT Enid(Arelis) Trnscrd Date/Time/By: 06/2018 (0997) : By: [email or web address] Orig Print D/T: S: 11/11/2018 (5532) PAGE 1 Signed Report CHEST 2 [id number] 18:08:00 [place] [address] Patient Name: FITO MCCONNELL I MR #: [id number] : 1940 Age/Sex: 77/F Req #: [id number] Adm Physician: Ordered by: RAIZA CID MD Report #: [id number] Location: [facility] Room/Bed: Procedure: [id number] DX /CHEST 2 VIEWS Exam Date: 07/06/18 Exam Time: 1519 REPORT STATUS: Signed EXAM: CHEST 2 VIEWS, PA and lateral DATE: 07/06/2018 Time stamp on exam: 3:19 PM INDICA TION: COPD with shortness of breath COMPARISON: 02/13/2018 FINDINGS: FLAVIO ES/TUBES: Sternotomy sutures and dual lead left cardiac device again noted. LUNGS: No consolidations or edema. PLEURA: No effusions or pneumothorax. HEART AND MEDIASTINUM: Normal size and contour. BONES AND SOFT TISSUES: Degenerative changes of the spine. IMPRESSION: No acute thoracic abnor mality. Signed by: Dr. Michael Chahal DO on 07/06/2018 6:10 PM Dictated By: MICHAEL CHAHAL DO 09 Transcribed By: SHAUNNA on 07/06/181809 COPY TO: RAIZA ROY MD COMPREHENSIVE METABOLIC [id number] 12:25:00* Test Item Value Reference Range Interpretation Comments SODIUM (test code = NA) 139 mmol/L 136-145 N POTASSIUM (test code = K) 3.4 mmol/L 3.5-5.1 L CHLORIDE (test code = CL) 100.0 mmol/L 98-107 N CARBON DIOXIDE (test code = CO2) 31.0 mmol/L 21-32 N ANION GAP (test code = GAP) 11.4 10-20 N GLUCOSE (test code = GLU) 147 mg/dL 74-106 H BLOOD UREA NITROGEN (test code = BUN) 33 mg/dL 7-18 H GLOMERULAR FILTRATION RATE (test code = GFR) 36 mL/min >=60 Estimated GFR by using Modified MDRD formula.Chronic kidney disease is defined as either kidney damageor GFR <60 mL/min/1.73 m2 for >3 months. CREATININE (test code = CREAT) 1.40 mg/dL 0.55-1.02 H Note change in reference range due to change in reagent. BUN/CREATININE RATIO (test code = BUN/CREA) 23.6 10-20 H TOTAL PROTEIN (test code = PROT) 7.6 gram/dL 6.4-8.2 N ALBUMIN (test code = ALB) 3.7 g/dL 3.4-5.0 N GLOBULIN (test code = GLOB) 3.9 gram/dL 2.7-4.2 N ALBUMIN/GLOBULIN RATIO (test code = A/G) 1.0 0.75-1.50 N CALCIUM (test code = CA) 10.2 mg/dL 8.5-10.1 H BILIRUBIN TOTAL (test code = BILT) 0.30 mg/dL 0.0-1.0 N SGOT/AST (test code = AST) 33 IUnit/L 15-37 N SGPT/ALT (test code = ALT) 29 IUnit/L 12-78 N ALKALINE PHOSPHATASE TOTAL (test code = ALKP) 125 IUnit/L 45-117 H Note change in reference range due to change in reagent. LIPID PROFILE (CORONARY RISK)2018-05-29 12:25:00* Test Item Value Reference Range Interpretation Comments TRIGLYCERIDES (test code = TRIG) 514 mg/dL 20-150 H CHOLESTEROL (test code = CHOL) 220 mg/dL 0-200 H CHOLESTEROL/HDL RATIO (test code = CHOLHDL) 4.0 RATIO 0-4.9 N RISK ASSOCIATED WITH CHOL/HDL RATIOS: Risk Male Female1/2 AVERAGE 3.43 3.27AVERAGE 4.97 4.442X AVERAGE 9.55 7.053X AVERAGE 23.39 11.04 REFERENCE VALUE IS RELATED TO RISK LEVELS ASRECOMMENDED BY THE MARCELLUS. HEART, LUNG, AND BLOOD INST. HDL CHOLESTEROL (test code = HDL) 52 mg/dL 40-60 N LIPOPROTEIN LDL (test code = LDL) 88 mg/dL 100-129 L Reference Interval: mg/dL mmol/L Optimal <100 <2.6Near/above optimal 100-129 2.6- 3.3Borderline High 130-159 3.4-4.1High 160-189 4.1-4.9Very High >=190 >=4.9========= This LDL result is a direct measurement.========= THYROID STIMULATING [id number] 12:25:00* Test Item Value Reference Range Interpretation Comments THYROID STIMULATING HORMONE (test code = TSH) 1.810 uIU/mL 0.36-3.7 4 N TSH REFERENCE RANGES: EUTHYROID: 0.35 - 4.3 mIU/mL HYPO : > 5.5 mIU/mL HYPER : < 0.35 mIU/mL COMPREHENSIVE METABOLIC [id number] 12:12:00* Test Item Value Reference Range Interpretation Comments SODIUM (test code = NA) 139 mmol/L 136-145 N POTASSIUM (test code = K) 3.4 mmol/L 3.5-5.1 L CHLORIDE (test code = CL) 100.0 mmol/L 98-107 N CARBON DIOXIDE (test code = CO2) mmol/L 21-32 ANION GAP (test code = GAP) 10-20 GLUCOSE (test code = GLU) mg/dL 74-106 BLOOD UREA NITROGEN (test code = BUN) mg/dL 7-18 GLOMERULAR FILTRATION RATE (test code = GFR) mL/min >=60 CREATININE (test code = CREAT) mg/dL 0.55-1.02 BUN/CREATININE RATIO (test code = BUN/CREA) 10-20 TOTAL PROTEIN (test code = PROT) gram/dL 6.4-8.2 ALBUMIN (test code = ALB) g/dL 3.4-5.0 GLOBULIN (test code = GLOB) gram/dL 2.7-4.2 ALBUMIN/GLOBULIN RATIO (test code = A/G) 0.75-1.50 CALCIUM (test code = CA) mg/dL 8.5-10.1 BILIRUBIN TOTAL (test code = BILT) mg/dL 0.0-1.0 SGOT/AST (test code = AST) IUnit/L 15-37 SGPT/ALT (test code = ALT) IUnit/L 12-78 ALKALINE PHOSPHATASE TOTAL (test code = ALKP) IUnit/L 45-117 LIPID PROFILE (CORONARY RISK)2018-05-29 12:12:00* Test Item Value Reference Range Interpretation Comments TRIGLYCERIDES (test code = TRIG) mg/dL 20-150 CHOLESTEROL (test code = CHOL) mg/dL 0-200 CHOLESTEROL/HDL RATIO (test code = CHOLHDL) RATIO 0-4.9 HDL CHOLESTEROL (test code = HDL) mg/dL 40-60 LIPOPROTEIN LDL (test code = LDL) mg/dL 100-129 THYROID STIMULATING [id number] 12:12:00* Test Item Value Reference Range Interpretation Comments THYROID STIMULATING HORMONE (test code = TSH) uIU/mL 0.36-3.7 4 PROTHROMBIN [id number] 10:14:00* Test Item Value Reference Range Interpretation Comments PROTHROMBIN TIME PATIENT (test code = PTP) 11.4 seconds 9.0-14.0 N INTERNATIONAL NORMAL RATIO (test code = INR) 1.0 0.8-1.2 N The therapeutic range for oral anticoagulant therapy formost indications is an international normalized ratio (INR)of between 2.0 and 3.0. The recommended therapeutic INRrange for various clinical situations is listed below: Clinical Situation INR range Pulmonary e mbolism treatment (2.0-3.0)Venous thrombosis treatmentVenous thrombosis prophylaxis (high risk surgery)Prevention of systemic embolism from: Acute myocardial infarction Valvular heart disease Atrial fibrillation Mechanical prosthetic heart valves (2.5-3.5) THROMBOPLASTIN TIME [id number] 10:14:00* Test Item Value Reference Range Interpretation Comments THROMBOPLASTIN TIME PARTIAL (test code = PTT) 35.0 seconds 25.0-36. 5 N CBC W/AUTO [id number] 10:05:00* Test Item Value Reference Range Interpretation Comments WHITE BLOOD CELL (test code = WBC) 8.0 K/mm3 4.5-12.5 N RED BLOOD CELL (test code = RBC) 4.46 mill/mm3 3.7-5.2 N HEMOGLOBIN (test code = HGB) 11.9 gram/dL 11.5-15.5 N HEMATOCRIT (test code = HCT) 39.0 % 36.0-46.0 N MEAN CELL VOLUME (test code = MCV) 87.4 fL 80-98 N MEAN CELL HGB (test code = MCH) 26.7 picogram 27.0-33.0 L MEAN CELL HGB CONCETRATION (test code = MCHC) 30.5 gram/dL 33.0-36. 0 L RED CELL DISTRIBUTION WIDTH (test code = RDW) 16.4 % 11.6-16. 2 H RED CELL DISTRIBUTION WIDTH SD (test code = RDW-SD) 52.5 fL 37 .0-51.0 H PLATELET COUNT (test code = PLT) 210 K/mm3 150-450 N MEAN PLATELET VOLUME (test code = MPV) 11.4 fL 6.7-11.0 H NEUTROPHIL % (test code = NT%) 57.7 % 39.0-69.0 N IMMATURE GRANULOCYTE % (test code = IG%) 0.4 % 0.0-5.0 N LYMPHOCYTE % (test code = LY%) 27.9 % 25.0-55.0 N MONOCYTE % (test code = MO%) 10.9 % 0.0-10.0 H EOSINOPHIL % (test code = EO%) 2.3 % 0.0-5.0 N BASOPHIL % (test code = BA%) 0.8 % 0.0-1.0 N NUCLEATED RBC % (test code = NRBC%) 0.0 % 0-0 N NEUTROPHIL # (test code = NT#) 4.63 K/mm3 1.8-7.7 N IMMATURE GRANULOCYTE # (test code = IG#) 0.03 x10 3/uL 0-0.03 N LYMPHOCYTE # (test code = LY#) 2.23 K/mm3 1.0-5.0 N MONOCYTE # (test code = MO#) 0.87 K/mm3 0-0.8 H EOSINOPHIL # (test code = EO#) 0.18 K/mm3 0.0-0.5 N BASOPHIL # (test code = BA#) 0.06 K/mm3 0.0-0.2 N NUCLEATED RBC # (test code = NRBC#) 0.00 K/mm3 0.0-0.1 N MANUAL DIFF REQUIRED (test code = MDIFF) NO CBC W/AUTO [id number] 10:02:00* Test Item Value Reference Range Interpretation Comments WHITE BLOOD CELL (test code = WBC) K/mm3 4.5-12.5 RED BLOOD CELL (test code = RBC) mill/mm3 3.7-5.2 HEMOGLOBIN (test code = HGB) 11.9 gram/dL 11.5-15.5 N HEMATOCRIT (test code = HCT) 39.0 % 36.0-46.0 N MEAN CELL VOLUME (test code = MCV) fL 80-98 MEAN CELL HGB (test code = MCH) picogram 27.0-33.0 MEAN CELL HGB CONCETRATION (test code = MCHC) gram/dL 33.0-36. 0 RED CELL DISTRIBUTION WIDTH (test code = RDW) % 11.6-16. 2 RED CELL DISTRIBUTION WIDTH SD (test code = RDW-SD) fL 37 .0-51.0 PLATELET COUNT (test code = PLT) K/mm3 150-450 MEAN PLATELET VOLUME (test code = MPV) fL 6.7-11.0 NEUTROPHIL % (test code = NT%) % 39.0-69.0 IMMATURE GRANULOCYTE % (test code = IG%) % 0.0-5.0 LYMPHOCYTE % (test code = LY%) % 25.0-55.0 MONOCYTE % (test code = MO%) % 0.0-10.0 EOSINOPHIL % (test code = EO%) % 0.0-5.0 BASOPHIL % (test code = BA%) % 0.0-1.0 NEUTROPHIL # (test code = NT#) K/mm3 1.8-7.7 LYMPHOCYTE # (test code = LY#) K/mm3 1.0-5.0 MONOCYTE # (test code = MO#) K/mm3 0-0.8 EOSINOPHIL # (test code = EO#) K/mm3 0.0-0.5 BASOPHIL # (test code = BA#) K/mm3 0.0-0.2 - XR CHEST 2 [id number] 10:02:00 FAX: Julieta Martinez [phone] [place]: O St: PRE Name: Neville BEKA CARVAJAL [facility] : [birth year] Age/S: 77/F [address] Unit #: [id number] Loc: [place] [address] Phys: Julieta Childress MD Acct: [id number] Dis Date: Status: PRE IN PHONE #: [phone] Exam Date: 05/29/2018 0947 FAX #: [phone] Reason: PRE OP EXAMS: CPT CODE: [id number] XR CHEST 2 V 60570 HISTORY: Preop. COMP ARISON: September 30, 2016. AP and lateral view of the chest: No acute infiltrates, effusion or congestion. Scarring. Left ICD is u nchanged. Cardiac silhouette is mildly enlarged. DJD of the dorsal spine. IMPRESSION: No acute infiltrates, effusion or congestion. at 1002 Reported and signed by: Jay Otrez M.D. CC: Julieta Childress MD Technologist: Stefan OLVERA(R) Trnscrd Osmin ate/Time/By: 05/29/2018 (1002) : By: [email or web address] Orig Print D/T: S: 05/09 (1000) PAGE 1 Signed Repor dontrell CHEST 2 [id number] 13:28:00 [place] [address] Patient Name: FITO MCCONNELL I MR #: [id number] : 1940 Age/Sex: 77/F Req #: [id number] Adm Physician: KANDI ESTRADA MD Ordered by: FLOYD ANDERSON MD Report #: [id number] Location: MED/SURG3 Room/Bed: [facility] Procedure: [id number] DX/CHEST 2 VIEWS Exam Date: 02/14/18 Exam Time: 11 00 REPORT STATUS: Signed EXAM: X R CHEST 2 VIEWS DATE: 02/14/2018 11:54 AM INDICATION: Pneumonia CO MPARISON: 02/13/2018, no report available FINDINGS: Lines and Tubes: No ne Heart and Mediastinum: Sternotomy wires, left chest wall pacemaker, aort ic calcification stable. Lungs and Pleura: Mild scattered airspace opacit ies, improved. Bones and Soft Tissues: No acute findings. IMPRESSION: 1. Improved edema. Signed by: Dr. Heidi Jimenez MD on 02/14/2018 1:29 PM Dictated By: HEIDI JIMENEZ MD 1329 Transcribed By: SHAUNNA on 02/14/18 1329 COPY TO: FLOYD ANDERSON MD CT BRAIN [id number] 17:01:00 [place] [address] Patient Name: FITO MCCONNELL I MR #: [id number] : 1940 Age/Sex: 77/F Req #: [id number] Adm Physician: KANDI ESTRADA MD Ordered by: GRACE CAGLE M.D. Report #: [id number] Location: MED/SURG3 Room/Bed: 287 Procedure: [id number] CT/CT BRAIN WO Exam Date: 02/13/18 Exam Time: 1 634 REPORT STATUS: Signed Examin ation: CT head without contrast Clinical Indication: Slurred speech. Techniq ue: Transaxial noncontrast images from the skull base through the vertex were obtained. Sagittal and coronal reformatted images were done. Dose modulation, iterative reconstruction, and/or weight based adjustment of the mA/kV was util ized to reduce the radiation dose to as low as reasonably achievable. Carl rison: None. Findings: Scalp: No abnormalities. Bones: Intact. No fr actures. No blastic or lytic lesions. Brain sulci: Appropriate for patien t's age. Ventricles: Normal in size and configuration. No hydrocephalus. . Extra-axial space: No abnormalities. Parenchyma: There are patchy areas of low-attenuation within subcortical and periventricular white matter, nonspecific, but could represent microvascular ischemic disease. No masses, hemorrhage, or acute or chronic cortical based vascular insults. Suprasell ar region: No abnormalities. Craniocervical junction: The foramen magnum is pa tent. No Chiari one malformation. Incidental findings: Atheroscleroti c calcification of the cavernous and supraclinoid internal carotid arteries. Impression: 1. No acute intracranial finding. 2. Mild chronic mi crovascular ischemic change. Signed by: Dr. Sofia Patterson M.D. on 2017 5:03 PM Dictated By: SOFIA YATES MD Electronically Sig jovon By: SOFIA YATES MD on 02/13/181702 Transcribed By: SHAUNNA on 02/13/181702 COPY TO: GRACE CAGLE MD CHEST 2 VIEWS 2018-02-13 11:42:[address], [place], [place] [address] Patient Name: FITO MCCONNELL I MR #: [id number] : 1940 Age/Sex: 77/F Req #: [id number] Adm Physician: KANDI ESTRADA MD Ordered by: KANDI ESTRADA MD Report #: [id number] Location: MED/SURG3 Room/Bed: [facility] Procedure: [id number] DX/ CHEST 2 VIEWS Exam Date: Exam Time: REPORT STATUS: Signed EXAMINATION: CHEST 2 EWS INDICATION: SOB COMPARISON: CT Chest 02/06/2018. FI NDINGS: TUBES and LINES: Left sided pacemaker with leads in unchanged positio n. LUNGS: Multifocal bilateral patchy and interstitial opacities are agai n noted. Left lower lobe nodule on CT from 02/06/2018 is not well seen by radi ograph. PLEURA: Trace bilateral pleural effusions. No evidence of pneumot horax. HEART AND MEDIASTINUM: The cardiomediastinal silhouette is unchang ed. BONES AND SOFT TISSUES: No acute osseous lesion. Soft tissues are u nremarkable. Status post median sternotomy. UPPER ABDOMEN: No free air und er the diaphragm. IMPRESSION: Multifocal patchy and interstitial pulmon kimberlee opacities, in a similar distribution to CT on 02/06/2018 which could repre sent pulmonary edema and/or atypical pneumonia. A left lower lobe nodule on CT from 02/06/2018 is not well seen by radiograph and a 3 month follow-up chest CT was suggested on the prior report to assess for resolution. Sig jovon by: Dr. Dom Tejada MD on 02/13/2018 11:47 AM Dictated By: DOM TEJADA MD 1147 Transcribed By: LEOPOLDO GARCIAS on 02/13/18 1147 COPY TO: KANDI ESTRADA MD HEPTOBILIARY W [id number] 17:11:00 [place] [address] Patient Name: FITO MCCONNELL I MR #: [id number] : 1940 Age/Sex: 77/F Req #: [id number] Adm Physician: KANDI ESTRADA MD Ordered by: MIKAYLA SHEA MD Report #: [id number] Location: MED/SURG3 Room/Bed: [facility] Procedure: [id number] N M/HEPTOBILIARY W PHARM Exam Date: 02/09/18 Exam Time : 1330 REPORT STATUS: Signed Hep atobiliary Scan with Gallbladder Ejection Fraction Clinical information: 77 F with sepsis and RUQ abdominal pain. Technique: Following intravenous adm inistration of 6.6 millicuries of Tc-99m mebrofenin, dynamic images of the abd omen in the anterior projection were obtained through 32 minutes. Sincalide ( CCK analog) 1.6 micrograms was administered intravenously over 30 minutes with additional imaging for determination of gallbladder ejection fraction. D iscussion: Perfusion of the liver is normal. Extraction of tracer by the live r parenchyma is normal. Tracer appears promptly within the biliary tract. Th e gallbladder begins to fill at 6 minutes post injection of tracer and fills a dequately. Tracer is seen in the small bowel during the sincalide infusion. There is no contractile response by the gallbladder to the pharmacologic dose of sincalide. No emptying of the gallbladder occurs during the 30 minute infu jared. Impression: 1. Filling of the gallbladder excludes acute cys tic duct obstruction/acute cholecystitis. 2. The gallbladder ejection fr action is undefined as there is no emptying of the gallbladder during the infu jared of sincalide. This absence of a contractile response to sincalide suppor ts the clinical diagnosis of chronic cholecystitis/gallbladder dyskinesia. Signed by: Dr. Megan Malhotra M.D. on 02/09/2018 5:13 PM Dictated By: MEGAN MALHOTRA MD 12 Transcribed By: SHAUNNA on 02/09/181712 COPY TO: MIKAYLA SHEA MD US ABDOMEN [id number] 17:52:00 [place] [address] Patient Name: FITO MCCONNELL I MR #: [id number] : 1940 Age/Sex: 77/F Req #: [id number] Adm Physician: KANDI ESTRADA MD Ordered by: TEE CHILDRESS MD Report #: [id number] Location: MED/SURG3 Room/Bed: [facility] Procedure: [id number] US/US ABDOMEN COMPLETE Exam Date: 02/08/18 Exam Time : 1426 REPORT STATUS: Signed EXA M: Complete Abdominal Ultrasound INDICATION: Right-sided abdominal pain. Nivia vated LFTs. COMPARISON: None. Correlation with CT chest dated 02/06/2018. TE EVELYNE: Transverse and longitudinal images of the upper abdomen were obtained . FINDINGS: Liver: Size: 15.6 cm in the right midclavicular line, borderline enlarged. Appearance: Mildly coarsened echotexture diffusely with mild nodular contour. contour Mass: No focal masses Spleen: Size: 10 .2 cm in length, normal Echogenicity: Normal Mass: No focal masses Ga llbladder: Stones/Sludge: Heterogeneous material within the gallbladder lumen suggestive of sludge and possibly gravel stones. Wall: 0.5 cm, thickened and heterogeneous. Appearance: No wall thickening, pericholecystic fluid or hydro ps. Sonographic Milton's Sign: Negative Bile Ducts: Intrahepatic Duct s: No dilatation Extrahepatic Ducts: Common bile duct measures 0.5 cm, no dila tation Pancreas: Visualized portions of the pancreatic head, neck and pro ximal body are normal. Kidneys: Length: Right 10.6 cm L eft 12.0 cm Echogenicity: Normal Collecting System: No hydronephrosis Stone: None Cyst/Mass: None Vessels: Aorta: Visualized portions are no rmal Inferior Vena Cava: Visualized portions are normal Main Portal Vein: 0. 5 cm, normal size with hepatopetal flow. Free Fluid: No ascites or pleura l effusion IMPRESSION: 1. Gallbladder sludge with possible gravel ston es. Diffuse gallbladder wall thickening with a negative Milton's sign (presumi ng no premedication administered prior to the exam). This findings could refle ct hepatocellular disease, hypoalbuminemia, however, acute cholecystitis is wi thin the differential diagnosis in the proper clinical setting. 2. Mild c oarsened echotexture and increased echogenicity of hepatic parenchyma with a s light nodular contour. Recommend MRI of abdomen without and with contrast with MRCP for further evaluation of this findings. Signed by: Dr. Gomez Trinidad M.D. on 02/08/2018 5:57 PM Dictated By: BE TRINIDAD MD, MD Nivia ctronically Signed By: BE TRINIDAD MD, MD on 02/08/181756 Transcribed By: LEOPOLDO GARCIAS on 02/08/181756 COPY TO: TEE CHILDRESS MD CT CHEST W 2018-02-06 14:50:00 [place] [address] Patient Name: FITO MCCONNELL I MR #: [id number] : 1940 Age/Sex: 77/F Req #: [id number] Adm Physician: KANDI ESTRADA MD Ordered by: LAURENCE PRIETO MCAT TUTOR Report #: [id number] Location: MED/SURG3 Room/Bed: [facility] Procedure: [id number] CT /CT CHEST W Exam Date: 02/06/18 Exam Time: 1412 REPORT STATUS: Signed EXAMINATION: CT of the chest with contrast, PE protocol. TECHNIQUE: Spiral CT images of the chest were performed from the lung apices through the level of the adrenal glands after the IV administration of 100 cc of Isovue-370. Thin section rec onstructions were obtained with special concentration on the pulmonary arterie s. COMPARISON: CT chest without contrast 12/10/2016 CLINICAL HISTORY:Sh ortness of breath, concern for pulmonary embolus DISCUSSION: Left subclavian approach implantable cardiac device body lies in the soft tissues of the left chest wall. Leads terminate in the right atrium and right ventricl e. Vasculature: The main pulmonary artery, right and left pulmonary arterie s, and their visualized lobar and segmental branches are patent, without filli ng defect. Pulmonary outflow tract is of normal caliber. There is no ectasia o r aneurysmal dilatation of the thoracic aorta. Lungs: Perihilar predomin ant groundglass opacities and interlobular septal thickening. 1.3 cm cavitary nodule with direct bronchial communication in the superior segment of the left lower lobe seen on series 3 image 50. Associated peribronchovascular nodules most notably in the right upper lobe. Airways: Trachea, mainstem bronchi, and central lobar and segmental bronchi are patent. Pleura: Small right and trace left pleural effusion. No pneumothorax. Heart and mediastinum: C ardiomegaly with prominent epicardial fat. No right ventricular dilatation or septal bowing. No pericardial effusion. Postsurgical changes of coronary arter y bypass with multiple median sternotomy wires. Visualized portions of the thy roid gland are unremarkable. Great vessel origins are normal in caliber and co nfiguration. Mediastinal and hilar lymph nodes are increased in number though not enlarged by CT criteria and overall unchanged relative to December 27, 2016 . Abdomen: Probable subcapsular vascular shunt in hepatic segment 8. Sub centimeter hypoattenuating lesion in segment 7 is too small to further charact erize but unchanged relative to 12/10/2016. Visualized portions of the spleen a re unremarkable. Bones and soft tissues: Asymmetry of the pectoralis muscu lature is unchanged compared to 12/10/2016. Otherwise no focal soft tissue abno rmalities. No osseous destructive lesions. IMPRESSION: No pulmonary embolus to the level of the segmental branch pulmonary arteries. Central predominant groundglass opacities and smooth interlobular septal thickening likely reflects pulmonary edema in the setting of associated small right and t race left pleural effusions, though the differential diagnosis includes atypic al infection. Small cavitary nodule in the superior segment of the left low er lobe is likely the result of endobronchial infection, given apparent commun ication with a subsegmental bronchus. Follow-up CT scan of the chest in 3 aleena hs is suggested to document stability or resolution. Cardiomegaly with po stsurgical changes of the mediastinum as above. Signed by: Dr. Sher You M.D. on 02/06/2018 3:05 PM Dictated By: LAURENCE YOU MD Nivia ctronically Signed By: LAURENCE YOU MD on 02/06/18 1505 Transcribed By: YANET Kennedy on 02/06/18 1505 COPY TO: LAURENCE PRIETO [employer] T[employer]OR CHEST SINGLE (PORTABLE)2018-02-05 12:08:00 [place] [address] Patient Name: FITO MCCONNELL I MR #: [id number] : 1940 Age/Sex: 77/F Req #: [id number] Adm Physician: Ordered by: EULALIO HOOD MD Report #: [id number] Location: ER Room/Bed: Procedure: [id number] DX/CHEST SINGLE (PORTABLE) Exam Date: 02/05/18 Exam Time: 1020 REPORT STATUS: Signed PROCEDURE: A single AP view of the chest. COMPARISON: CT Chest 12/11/19 and chest radiograph 11/14/16. INDICATIONS: CHEST PAIN, CONFUSION FINDINGS: Lines/tubes: Left sided pacemaker with leads terminating at the expected position of the right atrium and right ventricle. Lungs: The lungs are well inflated. Moderate interstitial and perihilar opacities. Pa tchy opacities at the lung bases. Pleura: Small bilateral pleural effusio ns. No evidence of pneumothorax. Heart and mediastinum: Mild enlarge ment of the cardiomediastinal silhouette. Bones: No acute bony abnor mality. IMPRESSION: Cardiomegaly with moderate interstitial edema a nd small bilateral pleural effusions. Patchy opacities at the lung bases like ly atelectasis, although superimposed pneumonia is possible in the appropr iate clinical setting. Dictated by: DOM TEJADA M.D. on 02/05/2018 a t 12:08 Electronically approved by: DOM TEJADA M.D. on 02/05/2018 at 12 :08 Dictated By: DOM TEJADA MD 120 Transcribed By: TEETEE on 02/05/18 120 COPY TO: EULALIO HOOD MD DIAPHRAGMATIC FLUOR-SNIFF TEST [place] [address] Patient Name: FITO MCCONNELL I MR #: [id number] : 1940 Age/Sex: 76/F Req #: [id number] Adm Physician: Ordered by: RAIZA CID MD Report #: [id number] Location: DX Room/Bed: Procedure: [id number] DX/DIAPHRAGMATIC FLUOR-SNIFF TEST Exam Date: 02/11/17 Exam Time: 1320 REPOR T STATUS: Signed PROCEDURE: DIAPHRAGMATIC FLUOROSCOPY (SNIFF TEST) IND ICATION: Shortness of breath COMPARISON: Patients [facility], CT, CT C HEST WO, 12/10/2016, 12:04. FINDINGS: AP and lateral full inspiration a nd expiration fluoroscopic views of the chest were performed. Multiple fluoro scopic images were also obtained while the patient performed rapid inspiratio n in AP and lateral planes. Examination shows normal excursion of both hemidiaphragms during full inspiration and expiration as well as rapid inspir ation. No paradoxical motion is identified. CONCLUSION: 1. Unremarkabl e sniff test Terry Villasenor M.D. Dictated by: Andre Villasenor M.D. on 02/11/2017 at 14:28 Electronically approved by: Terry Villasenor M.D. on 02/11/2017 at 14:28 Dictated By: GEORGI VILLASENOR MD 1428 T ranscribed By: TEETEE on 02/11/17 1428 COPY TO: RAIZA CID MD CT CHEST WO [place] [address] Patient Name: FITO MCCONNELL I MR #: [id number] : 1940 Age/Sex: 76/F Req #: [id number] Adm Physician: Ordered by: RAIZA CID MD Report #: [id number] Location: CT Room/Bed: Procedure: [id number] CT/CT CHEST WO Exam Date: Exam Time: 1210 REPORT STATUS: Signed PROCEDURE: CT CHEST WITHOUT CONTRAST CT scan of the chest WITHOUT intravenous contrast, using ILD protocol. TECHNIQUE: The chest was scanned utilizing a multidetector helical scanner from the apex to the level of the adrenal g lands. No IV contrast was administered because of referring physician reques t. Coronal and sagittal multiplanar reformations were obtained. Prone imaging , as well as expiratory phase imaging was performed. COMPARISON: CT alina st 09/20/2013. INDICATIONS: CHRONIC OBSTRUCTIVE PULMONARY DISEASE FINDINGS: Lines/tubes: None. Lungs and Airways: Interval near-comple te resolution of confluent ground glass opacities and consolidations relative to 09/20/2013. Small residual juxtapleural groundglass opacity seen on series 3 image 34. 1 cm groundglass nodule within the right middle lobe is unchange d. Bilateral lower lobe groundglass opacities and consolidations have reso lved. Small air filled cyst or pneumatocele medially within the left lower lo be is unchanged. No new consolidation. No honeycombing or bronchiectasis. No conspicuous emphysematous changes. Pleura: The pleural spaces are clear. Heart and mediastinum: Visualized portions of the thyroid gland are norm al. Mildly prominent mediastinal lymph nodes measure up to 1 cm short axis an d are unchanged compared to the prior examination. No axillary or hilar lymph adenopathy. Postsurgical changes of the mediastinum related to coronary arter y bypass graft. No ectasia or aneurysmal dilatation of the thoracic aorta. Th e pulmonary outflow tract is of normal caliber. Atherosclerotic calcification of the [place] coronary arteries. Implantable cardiac device leads lie within the right atrium and right ventricle. No pericardial effusion. Soft ti ssues: No focal soft tissue abnormalities. Implanted cardiac device body lies within the subcutaneous fat of the left pre-pectoral region. Abdomen: The subcentimeter hypoattenuating lesions in the left hepatic lobe are unchan ged and remain too small to further characterize. Visualized portions of the spleen, adrenals, and stomach are unremarkable. Bones: No osseous destr uctive lesions. Multilevel degenerative disc changes of the lower cervical an d thoracic spine. Multiple intact median sternotomy wires. IMPRESSION: Interval near-complete resolution of groundglass opacities and consoli dations predominantly within the lower lobes. Persistent 1 cm groundglass nodule in the right middle lobe should be assessed for stability by an additi onal CT scan of the chest in 2 years, at which 5 years of stability will have been documented (index scan 09/20/2013), per Fleischner Society 2017 guidelin es for sub-solid pulmonary nodule greater than 6 mm in diameter. Athero sclerotic vascular disease with postsurgical changes of coronary artery bypas s graft and implantable cardiac device placement. Dictated by: Laurence nava M.D. on 12/11/2016 at 8:46 Electronically approved by: Laurence Ren on 12/11/2016 at 8:46 Dictated By: LAURENCE OYU MD [facility] Signed By: LAURENCE YOU MD on 12/11/16845 Transcribed By: TEETEE on 06/24 COPY TO: RAIZA CID MD MAMMOGRAPHY DIGITAL DX UNI RT [place] [address] Patient Name: FITO MCCONNELL I MR #: [id number] : 1940 Age/Sex: 76/F Req #: [id number] [facility] Physician: Ordered by: LAURENCE FITZGERALD MD Report #: [id number] [facility]: Procedure: MG/MAMMOGRAPHY DIGITAL DX U NI RT Exam Date: 11/26/16 Exam Time: 0935 REPO RT STATUS: Signed #[id number] - [id number] #UNILATERAL RIGHT DIGITAL DIAG NOSTIC MAMMOGRAM WITH CAD: 11/26/2016 Comparison is made to exam dated: 2010 mammogram - [facility]. Current study contains 5 films. The tissue of the right breast is predominantly fatty. Current study was also evaluated with a Computer Aided Detection (CAD) system. Posto perative deformity of the right breast, and benign calcifications, are stable fr om prior examination. No significant masses, calcifications, or other fin dings are seen in the breast. IMPRESSION: BENIGN There is no mammograph ic evidence of malignancy. A 1 year screening mammogram is recommended. The patient will be notified by letter of the results. Dr. Carlos thomas/diana:11/26/2016 16:29:24 Plant Floor Automation Manager: Megan Villarreal RT(R)(M), [facility] letter sent: Compared to Anjelica guadarrama B9 Mammogram BI-RADS: 2 Benign Dictated By: CARLOS BELTRÁN MD Elect ronically Signed By: CARLOS BELTRÁN MD on 11/26/161628 Transcribed By: DIANA kennedy 11/26/161628 COPY TO: LAURENCE FITZGERALD MD CHEST 2 VIEWS [place] [address] Patient Name: FITO MCCONNELL I MR #: [id number] : 1940 Age/Sex: 76/F Req #: [id number] [facility] Physician: Ordered by: RAIZA CID MD Report #: [id number] Location: [facility] Room/B ed: Procedure: [id number] DX/CHEST 2 VIEWS Exam Date: 11/14/16 Exam Time: 1250 REPORT STATUS: Signed PROCEDURE: Frontal and lateral views of the chest. COMPARISON: Chest x-ray 02/15/2015. INDICATIONS: SHORTNESS OF BREATH, FLUID ON LUNGS FINDINGS: Lines/tubes: A left-sided pacemaker with 2 intact wires. Median sternotomy wires are intact. Lungs: Lungs are well-inflated. Increasing perihilar interstitial opacities. Pleura: Likely tiny left pleural ef fusion. Heart and mediastinum: Increase in mild cardiomegaly. Atherosclero tic calcifications in the aorta. Bones: No acute bony abnormality. IMPRESSION: Increasing mild to moderate cardiomegaly with early inters titial edema consistent with fluid overload. Likely tiny left pleural effusio n. Dictated by: Lj Muniz M.D. on 11/14/2016 at 13:30 Electronically approved by: Lj Muniz M.D. on 11/14/2016 at 13:30 Dictated By: Chao MUNIZ MD 1330 Transcribed By : TEETEE on 11/14/16 1330 COPY TO: RAIZA CID MD
--- OUTSIDE RECORDS SUMMARY | 2019-11-14 17:28 | XMS REPORT | Continuity of Care Document ---
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 Active Problem 10/06/2019 Julieta Holman Atherosclerosis of both carotid arteries Active Problem 10/06/2019 Julieta Holman S/P CABG (coronary artery bypass graft) Active Problem 10/06/2019 Julieta Holman Nonrheumatic tricuspid (valve) insufficiency Active Problem 10/06/2019 Julieta Holman Patient unable to exercise Act juventino Problem Julieta Holman LVH (left ventricular hypertrophy) due t o hypertensive disease, without heart failure Active Problem 10/06/2019 Julieta Holman Non-rheumatic mitral regurgitation Active Problem Julieta Holman S/P AV kala ablation Active Problem 10/06/2019 Julieta Holman Hypercholesteremia Active Problem 10/06/2019 Julieta Holman FH: CAD (coronary artery disease) Active Problem Julieta Holman Cardiac pacemaker in situ Acti ve Problem Julieta Holman Benign essential hypertension Active Problem Julieta Holman Atrial fibrillation Active Problem 10/06/2019 Julieta Holman Atrioventricular block, complete Active Problem 02/2018 Julieta Holman Carotid art occ w/o infarc Act juventino Problem Julieta Holman Shortness of breath Active Problem 10/06/2019 Julieta Holman Coronary atherosclerosis of unspecified type of bypass graft Active Prob guy 10/06/2019 Julieta Holman Hypercholesteremia Active Problem 11/04/2015 Julieta Holman Nonrheumatic mitral (valve) insufficiency Active Problem 11/04/2015 Julieta Holman Nonrheumatic tricuspid valve disorder Active Problem Julieta Holman Chronic atrial fibrillation, unspecified Active Problem 10/06/2019 Julieta Holman Pacemaker end of life Active Problem 10/06/2019 Julieta Holman Presence of Watchman left atrial appenda ge closure device Active Prob guy 10/06/2019 Julieta Holman Complete AV block Active Problem 10/06/2019 Julieta Holman Chronic diastolic heart failure Active Problem Julieta Holman Medications Medication Details Route Status Patient Instructions Ordering Provider Order Date Source Clopidogrel Bisulfate 1 tablet Orally Active 75 MG Orally Once a day [place] 04/06/2019 Julieta Holman Aspirin Adult 1 tablet Orally Active 81 MG Orally Once a day [place] 04/06/2019 Julieta Holman HydrALAZINE HCl 1 tablet Orally Active 50 mg Orally TID River Holman Losartan Potassium 1 tablet Orally Active 100 MG Orally Once a day [place] Holman Calcium 1 tablet with meals Orally Active 1200 MG Orally Once a day River Holman Oxcarbazepine 1 tablet PO Active 150 MG PO three times a day (tid) River Holman Clonidine HCl 1 tablet Orally Active 0.1 MG Orally twice a d ay (bid) River Holman Metoprolol Succinate 1 tablet PO Active 50 mg PO once a day River Holman Lasix 1 tablet Orally Active 40 MG Orally twice a da y (bid) River Holman Fish Oil 1 capsule Orally Active 300 MG Orally Once a da y [place] Holman Pramipexole Dihydrochloride 1 tablet Orally Active 1 MG Orally Three times a day River Holman Warfarin Sodium 1 tablet Orally Active 5 MG Orally Once a day River Holman Potassium Chloride Shawanda ER 1 t ablet with food Orally Active 20 MEQ Orally Once a day [place] Carmendi Fish Oil 1 capsule Orally Active 300 MG Orally Once a da y [place] danyel Kayla Holman Warfarin Sodium 1 tablet Orally Active 5 MG Orally Once a day Yashmundo Holman Lasix 1 tablet Orally Active 40 MG Orally twice a da y (bid) Yashmundo Holman Clonidine HCl 1 tablet Orally Active 0.1 MG Orally twice a d ay (bid) Yashmundo Holman Losartan Potassium 1 tablet Orally Active 100 MG Orally Once a day Yashmundo Rivers Kayla Berriosmundo Pramipexole Dihydrochloride 1 tablet Orally Active 1 MG Orally twice a day (bid) Yashmundo Holman Potassium Chloride Shawanda ER 1 t ablet with food Orally Active 20 MEQ Orally Once a day Yashmundo Holman Tramadol HCl 1 tablet as needed Orally Active 50 MG Orally every 6 hrs [facility] Julieta Berriosmundo Nortriptyline HCl 1 capsule Orally Active 50 MG Orally Once a day [facility] Julieta Holman Metoprolol Succinate 1 tablet PO Active 50 mg PO once a day Yashmundo Holman Gabapentin 1 capsule Orally Active 300 MG Orally Three leatha es a day [facility] Julieta Holman Calcium 1 tablet with meals Orally Active 1200 MG Orally Once a day [facility] Julieta Holman Tylenol 3 not defined NA Active Uri toled[facility] Julieta Holman Xarelto 1 tablet with food Orally Active 20 MG Orally Once a day Yashmundo Holman HydrALAZINE HCl 1 tablet Orally Active 50 mg Orally Three time s a day [facility] Julieta Berriosmundo Metolazone 1 tablet Orally Active 2.5 MG Orally M,W,F [facility] Tita danyel Kyala Berriosmundo Irbesartan 1 tablet Orally Active 150 MG Orally Once a da y Yashmundo Berriosmundo Nortriptyline HCl 1 capsule Orally Active 50 MG Orally Once a day Yashmundo Homlan Hydrocodone-Acetaminophen 1 ta blet as needed Orally Active 10-325 MG Orally every 6 hrs [facility] Julieta Berriosmundo Coumadin 1 tablet Orally Active 10 MG Orally daily [facility] danyel Kayla Berriosmundo Diclofenac Sodium & Benzalk Cl as directed Combination Active 1 & 0.13 % Combination Jeroudi Mohamed O Jeroudi Allergies, Adverse Reactions, Alerts Substance Category Reaction Severity Reaction type Status Date Reported Comments Source Toprol XL Adverse Reaction weakness) Adverse Reaction Active 01/06/2019 Mohamed O Jeroudi Norvasc Adverse Reaction legs swelling Adverse Reaction Active 01/06/2019 Mohamed O Jeroudi Motrin Adverse Reaction rash Adverse Reaction Active 01/06/2019 Mohamed O Jeroudi Clonidine HCl Adverse Reaction sleep Adverse Reaction Active 01/06/2019 Mohamed O Jeroudi Atorvastatin Calcium Adverse R eaction myalgias Ad verse Reaction Active 04/06/2019 Mohamed O Jeroudi Immunizations No Data Provided for This Section Results No Data Provided for This Section Pathology Reports No Data Provided for This Section Diagnostic Reports No Data Provided for This Section Consultation Notes No Data Provided for This Section Discharge Summaries No Data Provided for This Section History and Physicals No Data Provided for This Section Vital Signs Vital Sign Value Date Comments Source Weight 180 04/06/2019 Mohamed O Jeroudi Height 67 0 04/06/2019 Mohamed O Jeroudi Temperature Oral (F) 96.2 F 04/06/2019 Mohamed O Jeroudi Heart Rate 60 04/06/2019 Mohamed O Jeroudi Diastolic (mm Hg) 80 04/06/2019 Mohamed O Jeroudi Systolic (mm Hg) 130 04/06/2019 Mohamed O Jeroudi Weight 184 01/25/2019 Mohamed O Jeroudi Height 67 1 03/27/2018 Mohamed O Jeroudi Temperature Oral (F) 95.2 F 01/25/2019 Mohamed O Jeroudi Heart Rate 61 01/25/2019 Mohamed O Jeroudi Diastolic (mm Hg) 60 01/25/2019 Mohamed O Jeroudi Systolic (mm Hg) 130 01/25/2019 Mohamed O Jeroudi Weight 182 01/06/2019 Mohamed O Jeroudi Height 67 1 Mohamed O Jeroudi Temperature Oral (F) 95.0 F 01/06/2019 Mohamed O Jeroudi Heart Rate 69 01/06/2019 Mohamed O Jeroudi Diastolic (mm Hg) 78 01/06/2019 Mohamed O Jeroudi Systolic (mm Hg) 112 01/06/2019 Mohamed O Jeroudi Weight 188 03/27/2017 Mohamed O Jeroudi Height 67 0 03/27/2017 Mohamed O Jeroudi Temperature Oral (F) 96.7 F 03/27/2017 Mohamed O Jeroudi Heart Rate 60 03/27/2017 Mohamed O Jeroudi Diastolic (mm Hg) 70 03/27/2017 Mohamed O Jeroudi Systolic (mm Hg) 118 03/27/2017 Mohamed O Jeroudi Weight 192 12/03/2016 Mohamed O Jeroudi Height 67 0 12/03/2016 Mohamed O Jeroudi Temperature Oral (F) 98.3 F 12/03/2016 Mohamed O Jeroudi Heart Rate 60 12/03/2016 Mohamed O Jeroudi Diastolic (mm Hg) 72 12/03/2016 Mohamed O Jeroudi Systolic (mm Hg) 132 12/03/2016 Mohamed O Jeroudi Weight 196 10/16/2016 Mohamed O Jeroudi Height 67 0 10/16/2016 Mohamed O Jeroudi Temperature Oral (F) 96.0 F 10/16/2016 Mohamed O Jeroudi Heart Rate 60 10/16/2016 Mohamed O Jeroudi Diastolic (mm Hg) 70 10/16/2016 Mohamed O Jeroudi Systolic (mm Hg) 126 10/16/2016 Mohamed O Jeroudi Weight 198 09/12/2016 Mohamed O Jeroudi Height 67 0 09/12/2016 Mohamed O Jeroudi Temperature Oral (F) 97.2 F 09/12/2016 Mohamed O Jeroudi Heart Rate 60 09/12/2016 Mohamed O Jeroudi Diastolic (mm Hg) 70 09/12/2016 Mohamed O Jeroudi Systolic (mm Hg) 126 09/12/2016 Mohamed O Jeroudi Weight 199 08/15/2016 Mohamed O Jeroudi Height 67 0 08/15/2016 Mohamed O Jeroudi Temperature Oral (F) 97.6 F 08/15/2016 Mohamed O Jeroudi Heart Rate 60 08/15/2016 Mohamed O Jeroudi Diastolic (mm Hg) 64 08/15/2016 Mohamed O Jeroudi Systolic (mm Hg) 124 08/15/2016 Mohamed O Jeroudi Weight 198 07/31/2016 Mohamed O Jeroudi Height 67 0 07/31/2016 Mohamed O Jeroudi Temperature Oral (F) 98.3 F 07/31/2016 Mohamed O Jeroudi Heart Rate 60 07/31/2016 Mohamed O Jeroudi Diastolic (mm Hg) 60 07/31/2016 Mohamed O Jeroudi Systolic (mm Hg) 138 07/31/2016 Mohamed O Jeroudi Weight 198 07/23/2016 Mohamed O Jeroudi Height 67 0 07/23/2016 Mohamed O Jeroudi Temperature Oral (F) 97.0 F 07/23/2016 Mohamed O Jeroudi Heart Rate 60 07/23/2016 Mohamed O Jeroudi Diastolic (mm Hg) 72 07/23/2016 Mohamed O Jeroudi Systolic (mm Hg) 140 07/23/2016 Mohamed O Jeroudi Weight 188 06/06/2015 Mohamed O Jeroudi Height 67 0 06/06/2015 Mohamed O Jeroudi Temperature Oral (F) 96.5 F 06/06/2015 Mohamed O Jeroudi Heart Rate 60 06/06/2015 Mohamed O Jeroudi Diastolic (mm Hg) 70 06/06/2015 Mohamed O Jeroudi Systolic (mm Hg) 138 06/06/2015 Mohamed O Jeroudi Weight 188 05/24/2015 Mohamed O Jeroudi Height 67 0 05/24/2015 Mohamed O Jeroudi Temperature Oral (F) 96.7 F 05/24/2015 Mohamed O Jeroudi Heart Rate 60 05/24/2015 Mohamed O Jeroudi Diastolic (mm Hg) 68 05/24/2015 Mohamed O Jeroudi Systolic (mm Hg) 150 05/24/2015 Mohamed O Jeroudi Encounters Location Location Details Encounter Type Encounter Number Reason For Visit Attending Provider ADM Date DC Date Status Source Julieta Holman MD PA Unknown [id number] 05/24/19 16 05/24/2015 Julieta Holman MD PA Unknown [id number] 05/24/19 16 05/24/2015 Julieta Holman MD PA RESULTS [id number] 06/06/19 16 06/06/2015 Julieta Holman MD PA RESULTS [id number] 06/06/19 16 06/06/2015 Julieta Holman Procedures No Data Provided for This Section Assessment and Plan No Data Provided for This Section Plan of Care No Data Provided for This Section Social History Social History Date Source Social History ElementQualifiersDate Rep orted Smoking . Status Former Smoker Quit in 1994June 06, 2015 Alcohol Use No. June 06, 2015 Alcohol Screening: No. June 06, 2015 Marital Status: . June 06, 2015 Do you drink alcohol? No. 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
[2019-11-14] MEDS ORDERED: ONDANSETRON HCL INJ 2MG/ML 2ML 2 MG/ML VIAL IV STA (17:38)
[2019-11-14] MEDS ORDERED: MORPHINE SULFATE 2 MG/ML SYR 1ML IV ONE (17:45)
[2019-11-14] MEDS ORDERED: MORPHINE SULFATE 2 MG/ML SYR 1ML IV STA (17:49)
[2019-11-14] MEDS ORDERED: ONDANSETRON HCL INJ 2MG/ML 2ML 2 MG/ML VIAL ONE (17:57)
[2019-11-14] MEDS ORDERED: MORPHINE SULFATE INJ 4 MG/ML INJ 1ML ONE (17:58)
--- NOTE | 2019-11-14 18:05 | NUR ---
pt to transfer to [facility] er to er per transfer center.
--- NOTE | 2019-11-14 18:07 | Emergency Department Note ---
History of Present Illnes History of Present Illness Chief Complaint: Head/Face Trauma History of Present Illness This is a 79 year old female fell last night at home, cc neck pain . Onset (how long ago): day(s) (2) Location: neck Quality: sharp Radiation: Denies non-radiation, Denies back, Denies neck, Denies extremity, Denies abdomen, Denies periumbilical, Denies flank, Denies proximal, Denies distal, Denies other Severity: moderate Onset quality: gradual Duration (how long): day(s) (2) Timing of current episode: constant Progression: unchanged Chronicity: new Context: Denies recent illness, Denies recent surgery, Denies recent immobilization, Denies recent travel, Denies trauma/injury, Denies new medications, Denies hx of DVT/PE, Denies non-compliance w/ medications, Denies other Relieving factors: rest Exacerbating factors: movement Associated symptoms: Denies denies other symptoms, Denies confusion, Denies chest pain, Denies cough, Denies diaphoresis, Denies fever/chills, Denies headaches, Denies loss of appetite, Denies malaise, Denies nausea/vomiting, Denies rash, Denies seizure, Denies shortness of breath, Denies syncope, Denies weakness, Denies other Treatments prior to arrival: none Past Medical/Family History Physician Review I have reviewed the patient's past medical and family history. Any updates have been documented here. 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 Past Surgical History: Pacer/AICD Other Surgery: PACKEMAKER L-MASTECTOMY BREAST RECONSTRUCTION-LEFT AND PARTIAL RECONSTRUCTION OF RIGHT BLADER SUSPENSION AV NODE ABLATION DOUBLE BYPASS Social History Smoking Cessation: Never Smoker Alcohol Use: Social Other Last Tetanus: UTD Review of Systems Review of Systems Constitutional: Reports no symptoms EENTM: Reports no symptoms Cardiovascular: Reports no symptoms Respiratory: Reports no symptoms Gastrointestinal: Reports no symptoms Genitourinary: Reports no symptoms Musculoskeletal: Reports neck pain Integumentary: Reports no symptoms Neurological: Reports as per HPI Psychological: Reports no symptoms Endocrine: Reports no symptoms Hematological/Lymphatic: Reports no symptoms Physical Exam Related Data Allergies: Coded Allergies: codeine (Verified Allergy, Severe, HIVES, 02/17/19) rivaroxaban (Verified Allergy, Intermediate, SOB, 02/17/19) verapamil (Verified Allergy, Unknown, 02/17/19) Vital signs reviewed: Yes Physical Exam CONSTITUTIONAL Constitutional: Present well-developed, Present well-nourished HENT HENT: Present normocephalic, Present atraumatic, Present oropharynx clear/moist, Present nose normal HENT L/R: Present left ext ear normal, Present right ext ear normal EYES Eyes: Reports PERRL, Reports conjunctivae normal NECK Neck: Present other (tenderness left sidr) PULMONARY Pulmonary: Present effort normal, Present breath sounds normal CARDIOVASCULAR Cardiovascular: Present regular rhythm, Present heart sounds normal, Present capillary refill normal, Present normal rate GASTROINTESTINAL Abdominal: Present soft, Present nontender, Present bowel sounds normal GENITOURINARY Genitourinary: Present exam deferred SKIN Skin: Present warm, Present dry MUSCULOSKELETAL Musculoskeletal: Present ROM normal NEUROLOGICAL Neurological: Present alert, Present oriented x 3, Present no gross motor or sensory deficits PSYCHOLOGICAL Psychological: Present mood/affect normal, Present judgement normal Results Imaging Imaging results reviewed: Yes Critical Care Time Total Critical Care Time (min): 33 Critical care time exclusive o: separately billable procedures Critcal care necessary due to: other (neck fx) Critcal care time spent by me: discussion w consultants, discussion w primary provider, examination of patient, order/review laboratory studies Assessment & Plan Medical Decision Making MDM neck fx Reassessment Reassessment same Assessment & Plan Final Impression: (1) C2 cervical fracture Depart Disposition: TRANS TO OTHER [facility] F[facility] Home Meds Reported Medications [Clindamycin] No Conflict Check, 300 MG PO TID, #15 0 Refills 02/23/19 Apixaban (Eliquis) 5 Mg Tab.ds.pk, 5 MG PO BID, #60 2 Refills 02/23/19 Carbamazepine (CARBAMAZEPINE) 200 Mg Tablet, 200 MG PO BID, #30 TAB 02/18/19 Potassium Chloride (POTASSIUM CHLORIDE) 20 Meq Tab.er.prt, 20 MEQ PO BID, #60 3 Refills 02/05/18 Furosemide (FUROSEMIDE) 40 Mg Tablet, 40 MG PO BID, #60 TAB 3 Refills 02/05/18 Mexiletine Hcl (MEXILETINE HCL) 150 Mg Capsule, 150 MG PO BID 02/05/18 Metformin Hcl (METFORMIN HCL) 500 Mg Tablet, 500 MG PO TIDWM, #60 TAB 02/05/18 Metolazone (METOLAZONE) 5 Mg Tablet, 2.5 MG PO Friday, Fri, Fri, #30 TAB 02/05/18 Hydrocodone Bit/Acetaminophen (NORCO 10-325 TABLET) 1 Each Tablet, 1 TAB PO Q6H PRN for PAIN 09/17/17 [place]-3 Fatty Acids (OMEGA-3) 1,000 Mg Capsule, 1 TAB PO DAILY 09/17/17 Vitamin B Complex (B COMPLEX) 1 Each Tablet, 1 TAB PO DAILY 09/17/17 Multivitamin (MULTIVITAMINS) 1 Each Capsule, 1 TAB PO DAILY 09/17/17 Pramipexole Di-Hcl (PRAMIPEXOLE DIHYDROCHLORIDE) 1 Mg Tablet, 1 MG PO BID 09/17/17 Clonidine Hcl (CLONIDINE HCL) 0.1 Mg Tablet, 1 TAB PO Q12H, #60 TAB 09/17/17 Nortriptyline Hcl (NORTRIPTYLINE HCL) 25 Mg Capsule, 50 MG PO HS 09/20/13 Medications in the ED Morphine Sulfate 2 mg ONCE ONCE IV ; Start 11/14/19 at 17:45; Stop 11/14/19 at 17:50; Status DC Ondansetron HCl 4 mg NOW STAT IV ; Start 11/14/19 at 17:38; Stop 11/14/19 at 17:42; Status DC Morphine Sulfate 2 mg NOW STAT IV ; Start 11/14/19 at 17:49; Stop 11/14/19 at 17:51; Status DC Ondansetron HCl 4 mg STK-MED ONCE .ROUTE ; Start 11/14/19 at 17:57; Stop 11/14/19 at 17:54; Status DC Morphine Sulfate 4 mg STK-MED ONCE .ROUTE ; Start 11/14/19 at 17:58; Stop 11/14/19 at 17:54; Status DC PANCHITO COREY MD Nov 14, 2019 18:07
--- NOTE | 2019-11-14 18:08 | NUR ---
attempted report to [facility] x
--- NOTE | 2019-11-14 18:10 | NUR ---
notified [facility] of transfer and will notify [facility] and will fax mot to [facility] report to [facility] to [facility] enroute. getting disc
== END 2019-11-14 18:43 | disposition other institution (70) ==
LOC: FSED 16:38
DX: S12.110A Anterior displaced Type II dens fracture, initial encounter for closed fracture (principal); W19.XXXA Unspecified fall, initial encounter; Y92.008 Other place in unspecified non-institutional (private) residence as the place of occurrence of the external cause; E78.5 Hyperlipidemia, unspecified; I50.9 Heart failure, unspecified; I48.91 Unspecified atrial fibrillation; G62.9 Polyneuropathy, unspecified; Z85.3 Personal history of malignant neoplasm of breast; Z95.0 Presence of cardiac pacemaker
CPT/HCPCS: 70450; 72125; 80053; 85025; 85610; 94760; 99284; J2270 ×2; J2405